=== PATIENT | female | born 1945 | race Caucasian/White ===

== ENCOUNTER → 2018-02-22 15:08 | Outpatient (CLI) | payer MEDICARE, MEDICAID, SELFPAY ==
--- NOTE | 2018-02-22 15:12 | DI.RAD.S_ITS ---
PROCEDURE: XR CHEST 2V INDICATIONS: right rib pain, hx pneumonia TECHNIQUE: 2 views of the chest were acquired. COMPARISON: [facility], CT, PE STUDY (CTA CHEST), 08/25/2017, 15:12. [facility], CR, CHEST 2 VIEW, 08/25/2017, 6:06. [facility], CR, CHEST 2 VIEW, 03/30/2017, 8:39. [facility], CR, CHEST 2 VIEW, 02/21/2017, 13:58. FINDINGS: Surgical changes and devices: None. Lungs and pleura: No pleural effusions or pneumothorax. Lungs are abnormal with what appears to be prominent pulmonary hyperexpansion likely reflecting underlying chronic smoking history and COPD. There is an area of spiculated increased radiodensity that appears slightly greater in radiodensity than on the comparison film from 08/25/17. This raises concern for whether underlying malignancy is developing in that area of what appeared to be prior scarring. Mediastinum: Mediastinal contours are normal. Heart size is normal. Bones and chest wall: No suspicious bony abnormalities. Soft tissues appear unremarkable. IMPRESSION: Possible malignant appearing change at the right upper lobe laterally where an area of relatively subtle lung parenchymal scarring has increased in radiodensity. It is possible that this simply represents development of pneumonia in an area of prior scarring but malignancy as the dominant concerning given pulmonary hyperexpansion and apparent COPD. Followup CT scanning through the area likely is warranted at this time however sequential followup by 2 view chest plain films may be appropriate if signs and symptoms of mild underlying pneumonia are present. Dictated by: Mathew Sykes M.D. on 02/22/2018 at 15:56 Approved by: Mathew Sykes M.D. on 02/22/2018 at 15:59
== END ==
PROVIDERS: PCP Internal Medicine
DX: R07.81 Pleurodynia (principal); R91.8 Other nonspecific abnormal finding of lung field; J44.9 Chronic obstructive pulmonary disease, unspecified
CPT/HCPCS: 71046

== ENCOUNTER → 2018-03-13 12:28 | Outpatient (CLI) | payer MEDICARE, MEDICAID, SELFPAY ==
--- NOTE | 2018-03-13 | DI.CT.S_ITS ---
PROCEDURE: CT CHEST WO CON INDICATIONS: SOLITARY PULMONARY NODULE TECHNIQUE: Noncontrast 2.0-2.5 mm thick sections acquired from the pulmonary apices to the posterior costophrenic angles. 7 mm thick coronal and sagittal MIP reformats were then acquired. A low radiation dose technique was utilized. COMPARISON: [facility], CT, PE STUDY (CTA CHEST), 04/02/2015, 13:52. [facility], CR, XR CHEST 2V, 02/22/2018, 14:54. [facility], CT, PE STUDY (CTA CHEST), 08/25/2017, 15:12. FINDINGS: Image quality: Diagnostic, given the low radiation dose technique. Lungs and pleura: Diffuse centrilobular emphysema. There is increased density and poorly defined consolidation involving the previous right upper lobe opacities on image 39 series 5 since 08/25/17. However overall this is decreased in signal were noted prior CT from 04/02/15. This may correspond to the radiographic appearance. There is also poorly defined 4 mm nodular appearance involving the right upper lobe on image 26 series 5 which appears grossly unchanged. Bibasilar scarring/atelectasis. Mediastinum: Heart size is normal. No pericardial effusion. No mediastinal adenopathy by size criteria. Thoracic aorta and central pulmonary arteries are normal in size. Esophagus is normal in caliber. No hiatal hernia. s Bones and chest wall: No suspicious bony lesions. No vertebral body compression fractures. No axillary or supraclavicular adenopathy by size criteria. Thyroid gland negative. Bilateral posterior diaphragmatic fat-containing hernias, as before Abdomen: Visualized upper abdomen solid organs and bowel loops appear normal in the absence of contrast. IMPRESSION: Increasing density and consolidation of right upper lobe curvilinear and ill-defined opacities. Of note, this is within an area of previous presumed inflammatory change seen on a more distant remote prior CT however the interval increase since the most recent study (08/25/17) raises the possibility of early malignant process/neoplasm (versus recurrence inflammatory change) therefore recommend continued followup with a noncontrast chest CT in 3 months. Additional ill-defined 4 mm nodular focus in the right upper lobe is grossly unchanged. Fleischner Society criteria for SOLID lung nodule followup. Nodule size (mm)Low-risk patientHigh-risk patient<6 (single or multiple)No routine followup.Optional CT at 12 months. 6-8 (single or multiple)CT at 6-12 months, then optional CT at 18-24 mo.CT at 6-12 months, then CT at 18-24 months. >8 (single)CT at 3 months, PET-CT, or biopsy. Same as for low-risk pts. >8 (multiple)CT at 3-6 months, then optional CT at 18-24 mo.CT at 3-6 months, then CT at 18-24 months. Fleischner Society criteria for SUB-SOLID lung nodule followup. Solitary pure ground-glass nodules<6 mm (ground glass or part solid)No followup needed. 6 mm or larger (ground glass)CT at 6-12 months to confirm persistence, then CT every 2 years until 5 years.6 mm or larger (part solid)CT at 3-6 months to confirm persistence, then annual CT until 5 years if unchanged and solid component remains <6 mm. Multiple sub-solid nodules<6 mmCT at 3-6 months, then CT consider at 2 & 4 years for high risk patients. [address] at 3-6 months. Subsequent management based on most suspicious lesions. Recommendations do not apply to lung cancer screening, patients with immunosuppression, or patients with known primary cancer. Dictated by: Srikanth Siddiqui M.D. on 03/13/2018 at 13:21 Approved by: Srikanth Siddiqui M.D. on 03/13/2018 at 13:35
== END ==
PROVIDERS: PCP Internal Medicine; Visit Provider Internal Medicine
DX: R91.1 Solitary pulmonary nodule (principal)
CPT/HCPCS: 71250

== ENCOUNTER → 2018-08-10 09:36 | Outpatient (CLI) | payer MEDICARE, MEDICAID, SELFPAY ==
[2018-08-10 10:41] LABS: Hematocrit 36.8 % (36-46); Hemoglobin 12.7 g/dL (12.0-16.0); Mean Corpuscular HGB Conc 34.5 % (30-36); Mean Corpuscular Hemoglobin 30.4 PG (26-34); Mean Corpuscular Volume 88.1 fL (80-100); Platelet Count 171 X10^3/uL (150-400); Red Blood Cell Count 4.18 X10^6/uL (4.0-5.2); Red Cell Distribution Width 13.5 % (11.6-14.8); White Blood Cell Count 6.9 X10^3/uL (4.5-11.0)
[2018-08-10 10:53] LABS: Hemoglobin A1C% w Est Avg Glu 5.2 % (4.0-6.0)
[2018-08-10 11:26] LABS: Vitamin D 25 Hydroxy (D3) 30.9 ng/mL (30.0-100.0)
[2018-08-10 12:51] LABS: Blood Urea Nitrogen 14 mg/dL (7-17); Calcium 8.5 mg/dL (8.4-10.2); Carbon Dioxide 26 mmol/L (22-32); Chloride 100 mmol/L (98-107); Cholesterol 195 mg/dL (140-199); Estimated Glomerular Filt Rate > 60.0 mL/min (>60); Glucose 86 mg/dL (80-110); HDL Cholesterol 54 mg/dL (40-60); HEMOLYSIS < 15 (0-50); LDL Cholesterol Calculated 124 mg/dL (<100); Potassium 3.8 mmol/L (3.4-5.1); Sodium 138 mmol/L (137-145); Triglycerides 85 mg/dL (35-150)
== END ==
PROVIDERS: PCP Student in an Organized Health Care Education/Training Program; Visit Provider Student in an Organized Health Care Education/Training Program
DX: J44.9 Chronic obstructive pulmonary disease, unspecified (principal); M81.0 Age-related osteoporosis without current pathological fracture; E66.3 Overweight; Z13.220 Encounter for screening for lipoid disorders
CPT/HCPCS: 36415; 80048; 80061; 82306; 83036; 85027

== ENCOUNTER → 2018-08-14 13:47 | Outpatient (CLI) | payer MEDICARE, MEDICAID, SELFPAY ==
--- NOTE | 2018-08-14 13:58 | DI.CT.S_ITS ---
PROCEDURE: CT CHEST WO CON INDICATIONS: Pulmonary nodule TECHNIQUE: Noncontrast 2.0-2.5 mm thick sections acquired from the pulmonary apices to the posterior costophrenic angles. 7 mm thick coronal and sagittal MIP reformats were then acquired. A low radiation dose technique was utilized. COMPARISON: [facility], CT, CT CHEST WO CON, 03/13/2018, 12:37. FINDINGS: Image quality: Diagnostic, given the low radiation dose technique. Lungs and pleura: There is bibasilar scarring/atelectasis. No acute consolidation. 3-4 mm pulmonary nodule seen in the posterior right upper lobe, which may be new since prior study. Previously seen ill-defined curvilinear and presumed inflammatory opacities have resolved since prior study. There is residual scarlike opacity. Small posterior fat containing diaphragmatic hernia is Mediastinum: Heart size is normal. No pericardial effusion. No mediastinal adenopathy by size criteria. Thoracic aorta and central pulmonary arteries are normal in size. Esophagus is normal in caliber. No hiatal hernia. Bones and chest wall: No suspicious bony lesions. No vertebral body compression fractures. No axillary or supraclavicular adenopathy by size criteria. Thyroid gland unremarkable. Abdomen: Visualized upper abdomen solid organs and bowel loops appear normal in the absence of contrast. IMPRESSION: Improved appearance of inflammatory curvilinear densities seen in the right upper lobe however a 3-4 mm posterior right upper lobe nodule is indeterminate and new since prior study. Recommend followup noncontrast chest CT in one year. Fleischner Society criteria for SOLID lung nodule followup. Nodule size (mm)Low-risk patientHigh-risk patient<6 (single or multiple)No routine followup.Optional CT at 12 months. 6-8 (single or multiple)CT at 6-12 months, then optional CT at 18-24 mo.CT at 6-12 months, then CT at 18-24 months. >8 (single)CT at 3 months, PET-CT, or biopsy. Same as for low-risk pts. >8 (multiple)CT at 3-6 months, then optional CT at 18-24 mo.CT at 3-6 months, then CT at 18-24 months. Fleischner Society criteria for SUB-SOLID lung nodule followup. Solitary pure ground-glass nodules<6 mm (ground glass or part solid)No followup needed. 6 mm or larger (ground glass)CT at 6-12 months to confirm persistence, then CT every 2 years until 5 years.6 mm or larger (part solid)CT at 3-6 months to confirm persistence, then annual CT until 5 years if unchanged and solid component remains <6 mm. Multiple sub-solid nodules<6 mmCT at 3-6 months, then CT consider at 2 & 4 years for high risk patients. [address] at 3-6 months. Subsequent management based on most suspicious lesions. Recommendations do not apply to lung cancer screening, patients with immunosuppression, or patients with known primary cancer. Dictated by: Srikanth Siddiqui M.D. on 08/14/2018 at 16:08 Approved by: Srikanth Siddiqui M.D. on 08/14/2018 at 16:13
== END ==
PROVIDERS: Family Provider Internal Medicine Pulmonary Disease; PCP Student in an Organized Health Care Education/Training Program; Visit Provider Student in an Organized Health Care Education/Training Program
DX: R91.1 Solitary pulmonary nodule (principal)
CPT/HCPCS: 71250

== ENCOUNTER → 2018-10-16 12:44 | Outpatient (CLI) | payer MEDICARE, MEDICAID, SELFPAY ==
--- NOTE | 2018-10-16 | DI.MG.S_ITS ---
BILATERAL DIGITAL SCREENING MAMMOGRAM 3D/2D WITH CAD: 10/16/2018 CLINICAL: Routine screening. Comparison is made to exams dated: 09/22/2017 mammogram, 09/01/2016 mammogram, and 08/21/2015 mammogram - [facility]. There are scattered fibroglandular elements in both breasts. Current study was also evaluated with a Computer Aided Detection (CAD) system. There are benign calcifications in both breasts. There is a mole marker on the left breast. No significant masses, calcifications, or other findings are seen in either breast. There has been no significant interval change. IMPRESSION: There is no mammographic evidence of malignancy. A 1 year screening mammogram is recommended. This exam was interpreted at Station ID: [id number]. NOTE: For mammograms, a report in lay terms will be sent to the patient. Approximately 15% of breast malignancies will not be visualized mammographically. In the management of a palpable breast mass, a negative mammogram must not discourage biopsy of a clinically suspicious lesion. Electronically Signed By: Onofre forbes/samy:10/16/2018 16:43:00 letter sent: Normal Exam ACR BI-RADS Category 2: Benign Finding(s) 3342F
== END ==
PROVIDERS: Family Provider Internal Medicine Pulmonary Disease; PCP Student in an Organized Health Care Education/Training Program; Visit Provider Student in an Organized Health Care Education/Training Program
DX: Z12.31 Encounter for screening mammogram for malignant neoplasm of breast (principal)
CPT/HCPCS: 77063; 77067

== ENCOUNTER 2019-01-05 15:19 | Emergency (ER) | payer MEDICARE, MEDICAID, SELFPAY ==
[2019-01-05 15:21] VITALS: BP 103/63; PULSE 94; RESP 21; TEMP 36.8; O2SAT 105; BMI 28.3
--- NOTE | 2019-01-05 15:43 | DI.RAD.S_ITS ---
PROCEDURE: XR CHEST 2V INDICATIONS: cough, fever, rib pain TECHNIQUE: 2 views of the chest were acquired. COMPARISON: [facility], CR, CHEST 2 VIEW, 04/02/2015, 11:01. [facility], CR, CHEST 2 VIEW, 08/25/2017, 6:06. [facility], CT, PE STUDY (CTA CHEST), 08/25/2017, 15:12. [facility], CT, CT CHEST WO CON, 03/13/2018, 12:37. [facility], CT, CT CHEST WO CON, 08/14/2018, 14:58. [facility], CR, XR CHEST 2V, 02/22/2018, 14:54. FINDINGS: Surgical changes and devices: None. Lungs and pleura: No acute consolidation. A small indistinct nodular opacity is redemonstrated in the right upper lung zone, compatible with scarring. There is hyperinflation of the lungs with flattening of the hemidiaphragms compatible with COPD. No pleural effusions or pneumothorax. Mediastinum: Mediastinal contours are unchanged. Heart size is normal. Bones and chest wall: No suspicious bony abnormalities. Soft tissues appear unremarkable. IMPRESSION: 1. Findings compatible with COPD redemonstrated without definite evidence of pneumonia. Dictated by: Andre Ortiz M.D. on 01/05/2019 at 15:58 Approved by: Andre Ortiz M.D. on 01/05/2019 at 16:00
[2019-01-05 16:01] LABS: Influenza A and B by PCR Rapid Negative (Negative)
--- NOTE | 2019-01-05 17:05 | ED_ITS ---
HPI - URI/Sore Throat General Chief Complaint: Upper Respiratory Symptoms Stated Complaint: CHEST PAIN COUGH FEVER Time Seen by Provider: 01/05/19 17:05 Source: patient Limitations: no limitations History of Present Illness HPI Narrative: This is a 73-year-old female who comes to the emergency department with complaint of fevers intermittently. Patient has had some cough pain with cough. Patient states she has had some mild symptoms on and off since August. In the last week she has been concerned because there has been a lot of residence where she live who have had influenza and other respiratory illnesses. Patient has known COPD, she is on Xopenex as well as Advair for a steroid inhaler. She states that she has had temperatures up to 100.3 F, she has had cough that is intermittently dry and then productive with small amounts of phlegm. Patient states that they have been discolored. She has had pain when she coughs. She has felt a little bit more short of breath she has not had any vomiting but had some nausea. No diarrhea. She had some mild constipation which has resolved. No urinary symptoms. No swelling in her lower extremities. patient does see a report clerk. Related Data Home Medications Medication Instructions Recorded Confirmed [VITAMIN K2] 100 mg PO QDAY #0 08/25/17 12/22/18 levalbuterol tartrate [Xopenex HFA] 2 puff INH Q4HP PRN #0 08/25/17 12/22/18 umeclidinium [Incruse Ellipta] 62.5 mcg IH QDAY #0 08/25/17 12/22/18 Collagen 6,600 mg PO .QDAY 08/08/18 12/22/18 Vitamin D 2,000 units PO .QDAY 08/08/18 12/22/18 vitamin c 1,000 mg PO .QDAY 08/08/18 12/22/18 levalbuterol 0.31 mg/3 mL solution INHALATION PRN ml 12/22/18 12/22/18 for nebulization azithromycin 250 mg PO DAILY 01/05/19 01/05/19 umeclidinium [Incruse Ellipta] 1 puff INHALATION DAILY 01/05/19 01/05/19 Previous Rx's Medication Instructions Recorded levothyroxine 75 mcg tablet 75 mcg PO DAILY #90 tab 01/31/19 biotin 10 mg tablet 10 mg PO DAILY #90 tab 11/10/18 fluticasone 500 mcg-salmeterol 50 1 inhalation INHALATION BID #60 01/04/19 mcg/dose blistr powdr for each inhalation amoxicillin-pot clavulanate 1 tab PO BID #14 tab 01/05/19 [Augmentin] Allergies Allergy/AdvReac Type Severity Reaction Status Date / Time brompheniramine Allergy Mild Verified 12/22/18 11:32 [From [facility] Cold-Cough (PE)] ciprofloxacin [From CIPRO] Allergy Mild UNKNOWN Verified 12/22/18 11:32 REACTION. clindamycin [CLINDAMYCIN] Allergy Mild Verified 12/22/18 11:32 codeine Allergy Mild Verified 12/22/18 11:32 dextromethorphan Allergy Mild Verified 12/22/18 11:32 [facility] meloxicam [MELOXICAM] Allergy Mild Verified 12/22/18 11:32 phenylephrine Allergy Mild Verified 12/22/18 11:32 [facility] pseudoephedrine Allergy Mild Verified 12/22/18 11:32 erythromycin base Allergy Unknown Verified 12/22/18 11:32 [ERYTHROMYCIN BASE] LEVOQUIN Allergy Mild ACHILLES Uncoded 12/22/18 11:32 TENDON antihistamines Allergy Unknown PLEASE Uncoded 12/22/18 11:32 CLARIFY WHICH MED robatussin AdvReac Intermediate Severe Uncoded 12/22/18 11:32 confusion MUSCLE RELAXANTS AdvReac Unknown ALL MUSCLE Uncoded 12/22/18 11:32 RELAXERS CAUSE PROJECTILE VOMITING Review of Systems Review of Systems ROS Unobtainable: All systems reviewed & are unremarkable except as noted in HPI and below Constitutional Denies body ache(s), Denies chills, Reports fever(s), Reports headache(s) (Resolved), Denies lethargy, Denies night sweats and Denies weakness ENT Ears, Nose, Mouth, and Throat: Reports headache(s) (Resolved) and Denies nasal congestion Cardiovascular Denies chest pain, Denies diaphoresis, Denies syncope, Denies irregular heart rhythm, Denies leg edema, Denies lightheadedness, Denies radiating jaw, neck or arm pain, Denies palpitations, Reports dyspnea and Denies orthopnea Respiratory Reports chest congestion, Reports cough, Denies hemoptysis, Denies excessive phlegm production, Reports pain with cough, Reports dyspnea, Denies stridor and Reports wheezing Gastrointestinal Gastrointestinal: Denies abdominal pain, Denies change in bowel habits, Denies diarrhea, Denies nausea and Denies vomiting Genitourinary Denies hematuria, Denies dysuria, Denies flank pain and Denies urinary urgency Musculoskeletal Denies back pain Neurologic Denies syncope, Reports headache(s) (Resolved) and Denies weakness Endocrine Denies palpitations Allergic/Immunologic Reports wheezing [facility] Medical History Asthma (Chronic) COPD (chronic obstructive pulmonary disease) (Chronic) Hypothyroidism (Chronic) Cellulitis of right arm (Resolved 12/28/15) Pneumonia (Resolved) Surgical History History of section (Resolved ~1964) History of section (Resolved ~1974) History of tonsillectomy (Resolved) Family History (Updated 08/08/18 @ 09:12 by Roxanna Montemayor) Father Cancer Alzheimer's disease Mother Cancer History of cholecystectomy Cervical cancer BCC (basal cell carcinoma of skin) Rupture of gallbladder Sister Diabetes mellitus Son No problems noted. Daughter No problems noted. Brother Alcoholism Sister Diabetes mellitus Diverticulitis Social History Smoking Status: Former smoker Family History Father Cancer Alzheimer's disease Mother Cancer History of cholecystectomy Cervical cancer BCC (basal cell carcinoma of skin) Rupture of gallbladder Sister Diabetes mellitus Son No problems noted. Daughter No problems noted. Brother Alcoholism Sister Diabetes mellitus Diverticulitis Social History Smoking Status: Former smoker Exam Narrative Exam Narrative: GEN: well nourished, well appearing female, alert and oriented x 3, patient appears to be in mild distress. HEENT: Atraumatic, pupils are equal round reactive to light, extraocular movements are intact, nares are clear, throat is clear without any exudates, erythema, tonsillar enlargement or uvular deviation HEART: Regular rate and rhythm without murmur, clicks, rubs. pulses equal in upper extremities and lower extremities bilaterally. no edema bilateral lower extremities LUNGS:Lungs clear to auscultation, no wheezes, rales, crackles, chest moves symmetrically, no tachypnea or accessory muscle use. ABD:bowel sounds normal, soft, non-tender, no guarding, rebound, rigidity, no masses noted, no hepatosplenomegaly :No CVA tenderness MSCL: Non-tender, no muscle atrophy, muscles strength 5/5 upper and lower extremities, full range of motion, normal gait NEURO:CN 2-12 intact, sensation normal Initial Vital Signs Initial Vital Signs: Vital Signs Temperature 98.3 F 01/05/19 15:21 Pulse Rate 94 H 01/05/19 15:21 Respiratory Rate 21 01/05/19 15:21 Blood Pressure 103/63 01/05/19 15:21 Pulse Oximetry 105 H 01/05/19 15:21 Course Orders Ordered: ED Orders 01/05/19 15:25 FLU A and B [Influenza A and B by PCR Rapid] Stat 01/05/19 15:43 XR chest 2V Stat Discontinued Medications Amoxicillin/Clavulanate Potassium (Augmentin 875-125 Mg) 1 tab PO NOW ONE Stop: 01/05/19 17:53 Last Admin: 01/05/19 18:18 Dose: 1 tab Vital Signs - 8 hr 01/05/19 15:21 01/05/19 18:23 Temperature 98.3 F 98.6 F Pulse Rate 94 H 87 Respiratory Rate 21 20 Blood Pressure 103/63 Blood Pressure [Left Arm] 109/58 L Pulse Oximetry 105 H 92 MDM - URI/Sore Throat Lab Data Attestation: I reviewed the patient's lab results. Lab Results 01/05/19 Range/Units 15:25 Influenza A & B (PCR) Negative (Negative) Imaging Data Chest x-ray: Radiologist's impression: [address] [address] XRay Report Signed Patient: Naye Mason [facility]#: [id number] : 5Acct:[id number] Age/Sex: 73 / FDate of Service: 01/05/19 Loc: ED Accession Number: [id number] Procedure: XR chest 2V Ordering Provider: Nohelia Randall D.O. PROCEDURE: XR CHEST 2V INDICATIONS: cough, fever, rib pain TECHNIQUE: 2 views of the chest were acquired. COMPARISON: [facility], CR, CHEST 2 VIEW, 04/02/2015, 11:01. [facility], CR, CHEST 2 VIEW, 08/25/2017, 6:06. [facility], CT, PE STUDY (CTA CHEST), 08/25/2017, 15:12. [facility], CT, CT CHEST WO CON, 03/13/2018, 12:37. [facility], CT, CT CHEST WO CON, 08/14/2018, 14:58. [facility], CR, XR CHEST 2V, 02/22/2018, 14:54. FINDINGS: Surgical changes and devices: None. Lungs and pleura: No acute consolidation. A small indistinct nodular opacity is redemonstrated in the right upper lung zone, compatible with scarring. There is hyperinflation of the lungs with flattening of the hemidiaphragms compatible with COPD. No pleural effusions or pneumothorax. Mediastinum: Mediastinal contours are unchanged. Heart size is normal. Bones and chest wall: No suspicious bony abnormalities. Soft tissues appear unremarkable. IMPRESSION: 1. Findings compatible with COPD redemonstrated without definite evidence of pneumonia. Dictated by: Andre Ortiz M.D. on 01/05/2019 at 15:58 Approved by: Andre Ortiz M.D. on 01/05/2019 at 16:00 MDM Narrative Medical decision making narrative: I discussed with patient I suspect she may be having a flare of her COPD. She has had some low-grade fevers. She was influenza negative. She has not had a lot of upper respiratory symptoms that would likely be caused by typical virus. Discussed with patient we will plan to do a course of antibiotics, we did discuss doing steroids she is on a inhaled steroid currently. She would prefer to start 1st round of antibiotics if this is helpful and if not then to add steroids. We discussed for her to return this weekend if she is worsening. Otherwise follow up with her primary care or report clerk. Discharge Plan Departure Patient Disposition: Home Clinical Impression: Acute exacerbation of chronic obstructive pulmonary disease (COPD) Discharge Date/Time: 01/05/19 18:29 Interventions: ED Discharge Assessment Last Done: 01/05/19 18:29 Instructions: DI for Chronic Obstructive Pulmonary Disease Activity Restrictions/Additional Instructions: Follow up with primary care or your report clerk this week. Call for an appointment. Continue home medications as prescribed. Take antibiotics as prescribed. Your prescription was sent to [facility] pharmacy. Return to ER for persistent fevers greater than 100.4F, worsening shortness of breath, new weakness, chest pain or pressure, persistent vomiting, no abdominal pain, black or bloody stools, swelling in your lower extremities or other new or concerning symptoms. Prescriptions: New amoxicillin-pot clavulanate [Augmentin] 875-125 mg tablet 1 tab PO BID Qty: 14 RF: 0 No Action vitamin c 1,000 mg PO .QDAY RF: 0 Vitamin D 2,000 units PO .QDAY RF: 0 Collagen 6,600 mg PO .QDAY RF: 0 levalbuterol HCl [Xopenex] 0.31 mg/3 mL solution for nebulization INHALATION PRNRF: 0 [VITAMIN K2] 100 mg PO QDAY Qty: 0 RF: 0 umeclidinium [Incruse Ellipta] 62.5 MCG blister with device 62.5 mcg IH QDAY Qty: 0 RF: 0 levalbuterol tartrate [Xopenex HFA] 45 MCG/INH HFA aerosol inhaler 2 puff INH Q4HP PRNQty: 0 RF: 0 levothyroxine 75 mcg tablet 75 mcg PO DAILY Qty: 90 RF: 1 biotin 10 mg tablet 10 mg PO DAILY Qty: 90 RF: 0 fluticasone propion-salmeterol [Advair Diskus] 500-50 mcg/dose blister with device 1 inhalation INHALATION BID Qty: 60 RF: 5 azithromycin 250 mg tablet 250 mg PO DAILY RF: 0 Incruse Ellipta 62.5 mcg/actuation blister with device 1 puff Inhalation DAILY RF: 0 Referrals: Kailash Velez MD [Primary Care Provider] -
[2019-01-05] MEDS: AMOXICILLIN/CLAV 875/125 MG 1 TAB PO (18:18)
[2019-01-05 18:23] VITALS: BP 109/58; PULSE 87; RESP 20; TEMP 37; O2SAT 92
== END 2019-01-05 18:29 | disposition home or self-care (01) ==
PROVIDERS: Emergency Provider Emergency Medicine; Family Provider Internal Medicine Pulmonary Disease; PCP Student in an Organized Health Care Education/Training Program
DX: J44.1 Chronic obstructive pulmonary disease with (acute) exacerbation (principal); R50.9 Fever, unspecified
CPT/HCPCS: 71046; 87400; 99282; 99283

== ENCOUNTER → 2019-08-23 12:36 | Outpatient (CLI) | payer MEDICARE, MEDICAID, SELFPAY ==
--- NOTE | 2019-08-23 13:01 | DI.CT.S_ITS ---
PROCEDURE: CT CHEST WO CON INDICATIONS: solitary pulmonary nodule, and shortness of breath on excertion TECHNIQUE: Noncontrast 2.0-2.5 mm thick sections acquired from the pulmonary apices to the posterior costophrenic angles. 7 mm thick axial MIP and 5 mm coronal and sagittal reformats were then acquired. A low radiation dose technique was utilized. COMPARISON: [facility], CT, PE STUDY (CTA CHEST), 08/25/2017, 15:12. [facility], CT, CT CHEST WO CON, 03/13/2018, 12:37. [facility], CT, CT CHEST WO CON, 08/14/2018, 14:58. [facility], CR, XR CHEST 2V, 01/05/2019, 15:54. FINDINGS: Image quality: Diagnostic, given the low radiation dose technique. Lungs and pleura: There is a 2 mm nodule in the left upper lobe anterior medially (series 3 image 86), which has decreased in size (previously 4 mm on 08/14/2018). There are several static densities in the right upper lobe and right lower lobe. A couple of stellate densities in the anterior right upper lobe (series 3 image 36) are new, measuring 0.4 x 1.0 cm and and 0.4 x 0.5 cm. A surgical stellate density on the same slice was present but slightly more prominent. These are most likely parenchymal scars. There is moderate centrilobular emphysema. Bilateral subpleural scars and atelectasis in lower lobes. No pleural effusion or pneumothorax. Mediastinum: Heart size is normal. No pericardial effusion. No mediastinal adenopathy by size criteria. Thoracic aorta and central pulmonary arteries are normal in size. Esophagus is normal in caliber. No hiatal hernia. Bones and chest wall: No suspicious bony lesions. No vertebral body compression fractures. No axillary or supraclavicular adenopathy by size criteria. Thyroid gland is new. Abdomen: Visualized upper abdomen solid organs and bowel loops appear normal in the absence of contrast. IMPRESSION: 1. The previously seen 4 mm nodule in the right upper lobe has decreased in size, now measuring 2 mm, consistent with a benign nodule. 2. Multiple static densities in right lung, most likely parenchymal scars. A couple of such densities in the right upper lobe are new. Fleischner Society criteria for SOLID lung nodule followup. Nodule size (mm)Low-risk patientHigh-risk patient<6 (single or multiple)No routine followup.Optional CT at 12 months. 6-8 (single or multiple)CT at 6-12 months, then optional CT at 18-24 mo.CT at 6-12 months, then CT at 18-24 months. >8 (single)CT at 3 months, PET-CT, or biopsy. Same as for low-risk pts. >8 (multiple)CT at 3-6 months, then optional CT at 18-24 mo.CT at 3-6 months, then CT at 18-24 months. Fleischner Society criteria for SUB-SOLID lung nodule followup. Solitary pure ground-glass nodules<6 mm (ground glass or part solid)No followup needed. 6 mm or larger (ground glass)CT at 6-12 months to confirm persistence, then CT every 2 years until 5 years.6 mm or larger (part solid)CT at 3-6 months to confirm persistence, then annual CT until 5 years if unchanged and solid component remains <6 mm. Multiple sub-solid nodules<6 mmCT at 3-6 months, then CT consider at 2 & 4 years for high risk patients. [address] at 3-6 months. Subsequent management based on most suspicious lesions. Recommendations do not apply to lung cancer screening, patients with immunosuppression, or patients with known primary cancer. Dictated by: Kings Jamil M.D. on 08/23/2019 at 15:41 Approved by: Kings Jamil M.D. on 08/23/2019 at 15:55
== END ==
PROVIDERS: Family Provider Internal Medicine Pulmonary Disease; PCP Student in an Organized Health Care Education/Training Program; Visit Provider Student in an Organized Health Care Education/Training Program
DX: R91.1 Solitary pulmonary nodule (principal); R06.02 Shortness of breath; J43.2 Centrilobular emphysema
CPT/HCPCS: 71250

== ENCOUNTER → 2019-10-31 08:38 | Outpatient (CLI) | payer MEDICARE, MEDICAID, SELFPAY ==
--- NOTE | 2019-10-31 | DI.MG.S_ITS ---
BILATERAL DIGITAL SCREENING MAMMOGRAM 3D/2D WITH CAD: 10/31/2019 CLINICAL: Routine screening. Comparison is made to exams dated: 10/16/2018 mammogram, 09/22/2017 mammogram, and 09/01/2016 mammogram - [facility]. There are scattered fibroglandular elements in both breasts. Current study was also evaluated with a Computer Aided Detection (CAD) system. There are benign calcifications in both breasts. There is a mole marker on the left breast. No significant masses, calcifications, or other findings are seen in either breast. There has been no significant interval change. IMPRESSION: There is no mammographic evidence of malignancy. A 1 year screening mammogram is recommended. This exam was interpreted at Station ID: [id number]. NOTE: For mammograms, a report in lay terms will be sent to the patient. Approximately 15% of breast malignancies will not be visualized mammographically. In the management of a palpable breast mass, a negative mammogram must not discourage biopsy of a clinically suspicious lesion. Electronically Signed By: Patricia seymour/samy:10/31/2019 09:44:43 letter sent: Normal Exam ACR BI-RADS Category 2: Benign Finding(s) 3342F
== END ==
PROVIDERS: Family Provider Internal Medicine Pulmonary Disease; PCP Student in an Organized Health Care Education/Training Program; Visit Provider Student in an Organized Health Care Education/Training Program
DX: Z12.31 Encounter for screening mammogram for malignant neoplasm of breast (principal); M81.0 Age-related osteoporosis without current pathological fracture; Z78.0 Asymptomatic menopausal state; E07.9 Disorder of thyroid, unspecified; Z91.89 Other specified personal risk factors, not elsewhere classified; Z87.891 Personal history of nicotine dependence
CPT/HCPCS: 77063; 77067; 77080

== ENCOUNTER → 2020-12-01 09:30 | Outpatient (CLI) | payer MEDICARE, MEDICAID, SELFPAY ==
--- NOTE | 2020-12-01 | DI.MG.S_ITS ---
BILATERAL DIGITAL SCREENING MAMMOGRAM 3D/2D WITH CAD: 12/01/2020 CLINICAL: Routine screening. Comparison is made to exams dated: 10/31/2019 mammogram, 10/16/2018 mammogram, and 09/22/2017 mammogram - [facility]. There are scattered fibroglandular elements in both breasts. Current study was also evaluated with a Computer Aided Detection (CAD) system. There are benign calcifications in both breasts. There is a mole marker on the left breast. No significant masses, calcifications, or other findings are seen in either breast. There has been no significant interval change. IMPRESSION: BENIGN There is no mammographic evidence of malignancy. A 1 year screening mammogram is recommended. This exam was interpreted at Station ID: [id number]. NOTE: For mammograms, a report in lay terms will be sent to the patient. Approximately 15% of breast malignancies will not be visualized mammographically. In the management of a palpable breast mass, a negative mammogram must not discourage biopsy of a clinically suspicious lesion. Electronically Signed By: Anmol Mcgregor M.D., jr/samy:12/01/2020 10:26:42 letter sent: Normal Exam ACR BI-RADS Category 2: Benign Finding(s) 3342F
== END ==
PROVIDERS: Family Provider Internal Medicine Pulmonary Disease; PCP Student in an Organized Health Care Education/Training Program; Referring Provider Student in an Organized Health Care Education/Training Program; Visit Provider Student in an Organized Health Care Education/Training Program
DX: Z12.31 Encounter for screening mammogram for malignant neoplasm of breast (principal); M81.0 Age-related osteoporosis without current pathological fracture; Z78.0 Asymptomatic menopausal state; E07.9 Disorder of thyroid, unspecified; Z87.891 Personal history of nicotine dependence
CPT/HCPCS: 77063; 77067; 77080

== ENCOUNTER → 2021-01-09 09:43 | Outpatient (CLI) | payer MEDICARE, MEDICAID, SELFPAY ==
[2021-01-09 10:06] LABS: Hematocrit 36.7 % (36-46); Hemoglobin 12.5 g/dL (12.0-16.0); Mean Corpuscular Hemoglobin 30.3 PG (26-34); Mean Corpuscular Volume 89.2 fL (80-100); Platelet Count 194 X10^3/uL (150-400); Red Blood Cell Count 4.11 X10^6/uL (4.0-5.2); White Blood Cell Count 6.2 X10^3/uL (4.5-11.0)
[2021-01-09 10:23] LABS: HEMOLYSIS < 15 (0-50)
[2021-01-09 10:35] LABS: BUN Creatinine Ratio 22.2 (6-22); Blood Urea Nitrogen 12 mg/dL (7-17); Calcium 8.7 mg/dL (8.4-10.2); Carbon Dioxide 28 mmol/L (22-32); Chloride 101 mmol/L (98-107); Estimated Glomerular Filt Rate > 60.0 mL/min (>60); Glucose 95 mg/dL (80-110); Sodium 135 mmol/L (137-145)
[2021-01-09 11:02] LABS: TSH w/ Reflex to FT4 3.37 uIU/mL (0.47-4.68)
[2021-01-09 12:40] LABS: Vitamin B12 553 pg/mL (239-931)
[2021-01-13 13:00] LABS: Fecal Immunochemical Test Negative (Negative)
== END ==
PROVIDERS: Family Provider Internal Medicine Pulmonary Disease; PCP Student in an Organized Health Care Education/Training Program; Referring Provider Student in an Organized Health Care Education/Training Program; Visit Provider Student in an Organized Health Care Education/Training Program
DX: E03.9 Hypothyroidism, unspecified (principal); R53.83 Other fatigue; Z12.11 Encounter for screening for malignant neoplasm of colon
CPT/HCPCS: 36415; 80048; 82274; 82607; 84443; 85027

== ENCOUNTER → 2021-02-19 09:12 | Outpatient (CLI) | payer MEDICARE, MEDICAID, SELFPAY ==
[2021-02-19 09:45] LABS: COVID19 -Nasal RAPID Negative (Negative)
== END ==
PROVIDERS: Family Provider Internal Medicine Pulmonary Disease; PCP Student in an Organized Health Care Education/Training Program; Referring Provider Internal Medicine; Visit Provider Internal Medicine
DX: Z23 Encounter for immunization (principal)
CPT/HCPCS: 87635; C9803

== ENCOUNTER → 2021-02-20 12:23 | Outpatient (CLI) | payer MEDICARE, MEDICAID, SELFPAY ==
--- NOTE | 2021-02-25 08:46 | PM.PFT.1 ---
Pulmonary Function Test Referral & Results Date Patient Seen: 02/20/21 Requesting provider: Kailash Velez Results: The spirometry demonstrates an FVC of 2.19 L which is 82% of predicted. The FEV1 was measured at 1.04 L which is 52% of predicted. The FEV1/FVC ratio was 48 which is 63% of predicted. No bronchodilator was administered Lung volumes show an SVC of 2.17 L which is 82% of predicted. The diffusing capacity was measured at 9.41 which is 41% go to end of sentence my no hemoglobin of predicted. The maximum voluntary ventilation was reduced Interpretation: This study demonstrates moderate obstructive lung disease based on reduction FEV1 and FEV1/FVC ratio There may be mild restrictive lung disease based on minimal reduction in lung volumes as above There is also a quite notable reduction in diffusing capacity suggesting significant disease at the capillary alveolar level Clinical correlation suggested
== END ==
PROVIDERS: Family Provider Internal Medicine Pulmonary Disease; PCP Student in an Organized Health Care Education/Training Program; Referring Provider Student in an Organized Health Care Education/Training Program; Visit Provider Student in an Organized Health Care Education/Training Program
DX: J44.9 Chronic obstructive pulmonary disease, unspecified (principal)
CPT/HCPCS: 94010; 94726; 94729

== ENCOUNTER → 2021-07-15 10:56 | Outpatient (CLI) | payer MEDICARE, MEDICAID, SELFPAY ==
[2021-07-15 13:33] LABS: COVID19 -Nasal RAPID Negative (Negative)
== END ==
PROVIDERS: Family Provider Internal Medicine Pulmonary Disease; PCP Student in an Organized Health Care Education/Training Program; Visit Provider Nurse Practitioner Family
DX: Z20.822 Contact with and (suspected) exposure to COVID-19 (principal); R50.9 Fever, unspecified; R51.9 Headache, unspecified; R68.83 Chills (without fever)
CPT/HCPCS: 87635

== ENCOUNTER 2021-07-17 10:21 | Emergency (ER) | payer MEDICARE, MEDICAID, SELFPAY ==
[2021-07-17] VITALS (17 sets, daily range): BP systolic 90–121; BP diastolic 48–62; PULSE 77–105; RESP 16–24; TEMP 36.8; O2SAT 91–95; BMI 27.4
--- NOTE | 2021-07-17 10:40 | DI.RAD.S_ITS ---
PROCEDURE: XR CHEST 1V INDICATIONS: suspected sepsis TECHNIQUE: One view of the chest was acquired. COMPARISON: None. FINDINGS: Surgical changes and devices: None. Lungs and pleura: Moderate right medial basilar airspace opacity. No pleural effusions or pneumothoraces. Mediastinum: Mediastinal contours appear normal. Heart size is normal. Bones and chest wall: No suspicious bony lesions. Overlying soft tissues appear unremarkable. IMPRESSION: Right basilar pneumonia. Continued plain film surveillance is recommended to ensure resolution, and to exclude underlying or central malignancy. Dictated by: Masood Dooley M.D. on 07/17/2021 at 11:06 Approved by: Masood Dooley M.D. on 07/17/2021 at 11:07
[2021-07-17 11:18] LABS: Add Manual Diff / Slide Review NO; Basophils Absolute Auto 0 /uL (0-100); Basophils Percent Auto 0.7 % (0-2); Eosinophils Absolute Auto 100 /uL (0-450); Eosinophils Percent Auto 1.1 % (2-4); Hematocrit 33.2 % (36-46); Hemoglobin 11.3 g/dL (12.0-16.0); Lymphocytes Absolute Auto 900 /uL (1100-4500); Lymphocytes Percent Auto 15.3 % (25-40); Mean Corpuscular HGB Conc 33.9 % (30-36); Mean Corpuscular Hemoglobin 29.7 PG (26-34); Mean Corpuscular Volume 87.6 fL (80-100); Monocytes Absolute Auto 800 /uL (0-900); Monocytes Percent Auto 13.4 % (3-14); Neutrophils Absolute Auto 4200 /uL (1500-7000); Neutrophils Percent Auto 69.5 % (50-75); Platelet Count 190 X10^3/uL (150-400); Red Blood Cell Count 3.79 X10^6/uL (4.0-5.2); Red Cell Distribution Width 13.7 % (11.6-14.8)
[2021-07-17 11:23] LABS: Alanine Aminotransferase 19 IU/L (<35); Albumin Globulin Ratio 1.5 (1.0-2.8); Alkaline Phosphatase 51 U/L (38-126); Aspartate Aminotransferase 23 IU/L (14-36); BUN Creatinine Ratio 37.2 (6-22); Bilirubin Total 0.4 mg/dL (0.2-1.3); Blood Urea Nitrogen 16 mg/dL (7-17); Calcium 8.4 mg/dL (8.4-10.2); Carbon Dioxide 29 mmol/L (22-32); Chloride 97 mmol/L (98-107); Estimated Glomerular Filt Rate > 60.0 mL/min (>60); Globulin 2.6 g/dL (1.7-4.1); Glucose 120 mg/dL (80-110); HEMOLYSIS < 15 (0-50); Lipase 78 U/L (23-300); Potassium 3.8 mmol/L (3.4-5.1); Sodium 130 mmol/L (137-145); Total Protein 6.6 g/dL (6.3-8.2)
[2021-07-17 11:24] LABS: Lactate (Lactic Acid) 1.5 mmol/L (0.7-2.1)
[2021-07-17 11:40] LABS: Procalcitonin 0.06 ng/mL (<0.5)
[2021-07-17] MEDS: SODIUM CHLORIDE 0.9% 1,000 ML 1000 ML IV (11:53)
--- NOTE | 2021-07-17 11:59 | ED_ITS ---
HPI - SOB/Dyspnea General Chief Complaint: Shortness of Breath/Dyspnea Stated Complaint: fever/chills/weakness x6 days Time Seen by Provider: 07/17/21 11:59 Source: patient Mode of arrival: Ambulatory Limitations: no limitations History of Present Illness HPI Narrative: This is a 76-year-old female who comes in with complaint of low- grade fevers at 99 F, chills and feeling generally unwell. She has had a productive cough with clear sputum has been a little bit thicker. She has known COPD and is on Advair, umeclidinium, and fluticasone and azithromycin 250 mg daily. She does albuterol once daily and has not increased her usage. She has had some shortness of breath particularly with exertion and ambulation. She has not had any chest pain or pressure. She does not appreciate any swelling of her extremities. No abdominal, back or flank pain. No nausea or vomiting. She has had some loose stool 1 time today. No black or bloody stools. No other urinary symptoms. Patient does take medication for osteoporosis, hypothyroidism but does not have any known cardiac disease, dyslipidemia, hypertension or prior cardiac stents. She does follow with a hearing screen coordinator. She had COVID testing as an outpatient yesterday. Patient does states she has been on doxycycline in the past and responded well to it. Related Data Home Medications Medication Instructions Recorded Confirmed [VITAMIN K2] 100 mg PO QDAY #0 08/25/17 06/03/21 Collagen 6,600 mg PO .QDAY 08/08/18 06/03/21 Vitamin D 2,000 units PO .QDAY 08/08/18 06/03/21 vitamin c 1,000 mg PO .QDAY 08/08/18 06/03/21 biotin 2,500 mcg capsule 5 mg PO DAILY 05/16/19 06/03/21 Previous Rx's Medication Instructions Recorded oxygen #1 ea 10/19/19 alendronate 70 mg tablet 70 mg PO QWEEK #12 tab 12/15/20 umeclidinium 62.5 mcg/actuation 1 inh INHALATION DAILY #30 each 01/06/21 blister powder for inhalation (Incruse Ellipta) albuterol sulfate 90 mcg/actuation 2 puff INHALATION Q6H PRN #18 gram 04/20/21 aerosol inhaler (Ventolin HFA) levothyroxine 75 mcg tablet 75 mcg PO DAILY #90 tab 05/14/21 albuterol sulfate 2.5 mg INHALATION Q6H #360 ml 06/11/21 fluticasone 500 mcg-salmeterol 50 1 inh INHALATION BID #60 each 07/13/21 mcg/dose blistr powdr for inhalation (Advair Diskus) doxycycline hyclate 100 mg tablet 100 mg PO BID #20 tab 07/17/21 prednisone 10 mg tablets in a dose See Rx Instructions .ROUTE 07/17/21 pack .COMPLEX #15 ea Allergies Allergy/AdvReac Type Severity Reaction Status Date / Time brompheniramine Allergy Mild Verified 07/17/21 10:40 [From Dimetapp DM Cold-Cough (PE)] ciprofloxacin [From CIPRO] Allergy Mild UNKNOWN Verified 07/17/21 10:40 REACTION. clindamycin [CLINDAMYCIN] Allergy Mild Verified 07/17/21 10:40 codeine Allergy Mild Verified 07/17/21 10:40 dextromethorphan Allergy Mild Verified 07/17/21 10:40 [From Dimetapp DM Cold-Cough (PE)] meloxicam [MELOXICAM] Allergy Mild Verified 07/17/21 10:40 phenylephrine Allergy Mild Verified 07/17/21 10:40 [From Dimetapp DM Cold-Cough (PE)] pseudoephedrine Allergy Mild Verified 07/17/21 10:40 erythromycin base Allergy Unknown Verified 07/17/21 10:40 [ERYTHROMYCIN BASE] levofloxacin AdvReac Severe Achilles Verified 07/17/21 12:46 Tendon guaifenesin [From Robitussin] AdvReac Intermediate Confusion Verified 07/17/21 12:46 antihistamines Allergy Unknown PLEASE Uncoded 06/03/21 12:46 CLARIFY WHICH MED MUSCLE RELAXANTS AdvReac Unknown ALL MUSCLE Uncoded 06/03/21 12:46 RELAXERS CAUSE PROJECTILE VOMITING Review of Systems Review of Systems ROS Unobtainable: All systems reviewed & are unremarkable except as noted in HPI and below Patient History Medical History Asthma Cellulitis of right arm (12/28/15) COPD (chronic obstructive pulmonary disease) Hypothyroidism Pneumonia Surgical History History of section (~1965) History of section (~1974) History of tonsillectomy Family History Father Cancer Alzheimer's disease Mother Cancer History of cholecystectomy Cervical cancer BCC (basal cell carcinoma of skin) Rupture of gallbladder Sister Diabetes mellitus Son No problems noted. Daughter No problems noted. Brother Alcoholism Sister Diabetes mellitus Diverticulitis Social History Smoking Status: Former smoker Smoking Status: Former smoker alcohol intake frequency: 0-2 drinks per day Substance Use Type: does not use Exam Narrative Exam Narrative: GENERAL: Alert and oriented x three, female in mild distress. HEENT: Head normocephalic, atraumatic, EOMI, pupils reactive, face symmetric, no nasal congestion, moist mucous membranes NECK: Supple, full range of motion CARDIOVASCULAR: Regular rate and rhythm without murmurs, rubs or gallops. RESPIRATORY: Breath sounds equal bilaterally, no wheezes rales or rhonchi. No tachypnea. No accessory muscle use. ABDOMEN: Soft, nontender. Normoactive bowel sounds all 4 quadrants. No guarding or rebound, rigidity, no mass : No CVA tenderness EXTREMITIES: Normal range of motion, no clubbing or edema. Neurovascularly intact. NEUROLOGICAL: Cranial nerves II through XII grossly intact. Moving all extremities SKIN: Warm, dry, no petechiae, no rashes or lesions. Initial Vital Signs Initial Vital Signs: Vital Signs Temperature 98.3 F 07/17/21 10:30 Pulse Rate 100 H 07/17/21 10:30 Respiratory Rate 24 07/17/21 10:30 Blood Pressure 107/56 L 07/17/21 10:30 Pulse Oximetry 94 07/17/21 10:30 Scores CURB-65 Confusion: No BUN >19mg/dL (>7mmol/L): No Respiratory rate greater or equal to 30: No SBP <90mmHg or DBP less or equal to 60mmHg: No (patient 90 at lowest. Prior visits have had sbp at 100-90's repeatedly.) Age 65 or Older: Yes CURB-65 Total: 1 Score 0-1 Outpatient care, Score 2 Inpt vs. Obs, Score 3 or over Inpt admit with ICU for score of 4-5 Course Orders Ordered: ED Orders 07/17/21 10:40 XR chest 1V Stat RT Consult Eval and Treat Now 07/17/21 11:00 Complete Blood Count AUTO DIFF Stat Comprehensive Metabolic Panel Stat Lactate (Lactic Acid) Stat Lipase Stat Procalcitonin Stat Respiratory Panel (Film Array) Stat 07/17/21 11:16 Blood Culture Stat 07/17/21 12:26 EKG-12 Lead Stat Discontinued Medications Doxycycline Hyclate (Doxycycline Hyclate 100 Mg Tablet) 100 mg PO NOW ONE Stop: 07/17/21 12:37 Last Admin: 07/17/21 13:07 Dose: 100 mg Documented by: JESSICA Sodium Chloride (Normal Saline 0.9%) 1,000 mls @ 1,000 mls/hr IV BOLUS ONE Stop: 07/17/21 11:39 Last Infusion: 07/17/21 13:33 Dose: 0 mls/hr Documented by: Admin: 07/17/21 11:53 Dose: 1,000 mls/hr Documented by: CHITRA Sodium Chloride (Normal Saline 0.9%) 1,000 mls @ 1,000 mls/hr IV BOLUS ONE Stop: 07/17/21 13:32 Last Admin: 07/17/21 13:33 Dose: Not Given Documented by: JESSICA Methylprednisolone (Methylprednisolone 125 Mg/2 Ml Vial) 125 mg IV NOW ONE Stop: 07/17/21 12:38 Last Admin: 07/17/21 13:07 Dose: 125 mg Documented by: JESSICA Vital Signs Vital signs: Vital Signs - 8 hr 07/17/21 11:30 07/17/21 11:31 07/17/21 11:45 Pulse Rate 86 85 84 Respiratory Rate 17 16 18 Blood Pressure 90/48 L Pulse Oximetry 93 92 93 07/17/21 11:56 07/17/21 12:00 07/17/21 12:15 Pulse Rate 81 79 82 Respiratory Rate 18 16 18 Blood Pressure 104/58 L 106/59 L Pulse Oximetry 92 92 94 07/17/21 12:30 07/17/21 12:45 07/17/21 13:00 Pulse Rate 83 82 77 Respiratory Rate 24 16 17 Blood Pressure 116/56 L 116/62 115/59 L Pulse Oximetry 93 95 95 07/17/21 13:15 Pulse Rate 80 Respiratory Rate 19 Blood Pressure 118/60 Pulse Oximetry 95 MDM - SOB/Dyspnea Lab Data Result diagrams: 07/17/21 11:00 07/17/21 11:00 Labs: Lab Results 07/17/21 07/17/21 07/17/21 Range/Units 11:00 11:00 11:00 WBC 6.0 (4.5-11.0) X10^3/uL RBC 3.79 L (4.0-5.2) X10^6/uL Hgb 11.3 L (12.0-16.0) g/dL Hct 33.2 L (36-46) % MCV 87.6 (80-100) fL MCH 29.7 (26-34) PG MCHC 33.9 (30-36) % RDW 13.7 (11.6-14.8) % Plt Count 190 (150-400) X10^3/uL Neut % (Auto) 69.5 (50-75) % Lymph % (Auto) 15.3 L (25-40) % [place] % (Auto) 13.4 (3-14) % Eos % (Auto) 1.1 L (2-4) % Baso % (Auto) 0.7 (0-2) % Neut # (Auto) 4200 (6340-3007) /uL Lymph # (Auto) 900 L (0812-3675) /uL [place] # (Auto) 800 (0-900) /uL Eos # (Auto) 100 (0-450) /uL Baso # (Auto) 0 (0-100) /uL Sodium 130 L (137-145) mmol/L Potassium 3.8 (3.4-5.1) mmol/L Chloride 97 L (98-107) mmol/L Carbon Dioxide 29 (22-32) mmol/L BUN 16 (7-17) mg/dL Creatinine 0.43 L (0.52-1.04) mg/dL Estimated GFR > 60.0 (>60) mL/min BUN/Creatinine Ratio 37.2 H (6-22) Glucose 120 H (80-110) mg/dL Lactate 1.5 (0.7-2.1) mmol/L Calcium 8.4 (8.4-10.2) mg/dL Total Bilirubin 0.4 (0.2-1.3) mg/dL AST 23 (14-36) IU/L ALT 19 (<35) IU/L Alkaline Phosphatase 51 (38-126) U/L Total Protein 6.6 (6.3-8.2) g/dL Albumin 4.0 (3.5-5.0) g/dL Globulin 2.6 (1.7-4.1) g/dL Albumin/Globulin Ratio 1.5 (1.0-2.8) Lipase 78 (23-300) U/L Procalcitonin 0.06 (<0.5) ng/mL Chlamy pneumoniae PCR (Not Detect) Adenovirus (PCR) (Not Detect) B. pertussis DNA (PCR) (Not Detecte) B.parapertussis DNA PCR (Not Detecte) Coronavirus OC43 (PCR) (Not Detect) Coronavirus HKU1 (PCR) (Not Detect) Coronavirus 229E (PCR) (Not Detect) SARS-CoV-2 (PCR) (Not Detecte) Coronavirus NL63 (PCR) (Not Detect) Human Metapneumovir PCR (Not Detect) Influenza Type A (PCR) (Not Detect) Influenza Type B (PCR) (Not Detect) M. pneumoniae (PCR) (Not Detect) Parainfluenza 1 (PCR) (Not Detect) Parainfluenza 2 (PCR) (Not Detect) Parainfluenza 3 (PCR) (Not Detect) Parainfluenza 4 (PCR) (Not Detect) RSV (PCR) (Not Detect) Entero/Rhino (PCR) (Not Detect) 07/17/21 Range/Units 11:00 WBC (4.5-11.0) X10^3/uL RBC (4.0-5.2) X10^6/uL Hgb (12.0-16.0) g/dL Hct (36-46) % MCV (80-100) fL MCH (26-34) PG MCHC (30-36) % RDW (11.6-14.8) % Plt Count (150-400) X10^3/uL Neut % (Auto) (50-75) % Lymph % (Auto) (25-40) % [place] % (Auto) (3-14) % Eos % (Auto) (2-4) % Baso % (Auto) (0-2) % Neut # (Auto) (5669-8326) /uL Lymph # (Auto) (5472-9113) /uL [place] # (Auto) (0-900) /uL Eos # (Auto) (0-450) /uL Baso # (Auto) (0-100) /uL Sodium (137-145) mmol/L Potassium (3.4-5.1) mmol/L Chloride (98-107) mmol/L Carbon Dioxide (22-32) mmol/L BUN (7-17) mg/dL Creatinine (0.52-1.04) mg/dL Estimated GFR (>60) mL/min BUN/Creatinine Ratio (6-22) Glucose (80-110) mg/dL Lactate (0.7-2.1) mmol/L Calcium (8.4-10.2) mg/dL Total Bilirubin (0.2-1.3) mg/dL AST (14-36) IU/L ALT (<35) IU/L Alkaline Phosphatase (38-126) U/L Total Protein (6.3-8.2) g/dL Albumin (3.5-5.0) g/dL Globulin (1.7-4.1) g/dL Albumin/Globulin Ratio (1.0-2.8) Lipase (23-300) U/L Procalcitonin (<0.5) ng/mL Chlamy pneumoniae PCR Not detected (Not Detect) Adenovirus (PCR) Not detected (Not Detect) B. pertussis DNA (PCR) Not detected (Not Detecte) B.parapertussis DNA PCR Not detected (Not Detecte) Coronavirus OC43 (PCR) Not detected (Not Detect) Coronavirus HKU1 (PCR) Not detected (Not Detect) Coronavirus 229E (PCR) Not detected (Not Detect) SARS-CoV-2 (PCR) Not detected (Not Detecte) Coronavirus NL63 (PCR) Not detected (Not Detect) Human Metapneumovir PCR Not detected (Not Detect) Influenza Type A (PCR) Not detected (Not Detect) Influenza Type B (PCR) Not detected (Not Detect) M. pneumoniae (PCR) Not detected (Not Detect) Parainfluenza 1 (PCR) Not detected (Not Detect) Parainfluenza 2 (PCR) Not detected (Not Detect) Parainfluenza 3 (PCR) Not detected (Not Detect) Parainfluenza 4 (PCR) Not detected (Not Detect) RSV (PCR) Not detected (Not Detect) Entero/Rhino (PCR) Not detected (Not Detect) Urine Dip Bedside Urine Glucose Negative Bedside Urine Bilirubin - Negative Bedside Urine Ketone - Negative Urine Specific [place] 1.015 Bedside Urine Occult Blood - Negative Bedside Urine pH 6.0 Bedside Urine Protein - Negative Bedside Urine Urobilinogen - Negative Bedside Urine Nitrite - Negative Bedside Urine Leukocytes - Negative Esterase Imaging Data Chest x-ray: Radiologist's Impression: [address] [id number] XRay Report Signed Patient: Naye Mason MR#: [id number] : 1945 Acct:[id number] Age/Sex: 76 / F Date of Service: 07/17/21 Loc: ED Accession Number: [id number] ?? Procedure: XR chest 1V Ordering Provider: Nohelia Randall D.O. PROCEDURE:? XR CHEST 1V ? INDICATIONS:? suspected sepsis ? TECHNIQUE:? One view of the chest was acquired.? ? COMPARISON:? None. ? FINDINGS:? ? Surgical changes and devices:? None.? ? Lungs and pleura:? Moderate right medial basilar airspace opacity.? No pleural effusions or pneumothoraces. ? Mediastinum:? Mediastinal contours appear normal.? Heart size is normal.? ? Bones and chest wall:? No suspicious bony lesions.? Overlying soft tissues appear unremarkable.? ? IMPRESSION:? Right basilar pneumonia. Continued plain film surveillance is recommended to ensure resolution, and to exclude underlying or central malignancy. ? ? Dictated by: Masood Dooley M.D. on 07/17/2021 at 11:06 ? ? Approved by: Masood Dooley M.D. on 07/17/2021 at 11:07?? ECG Data Attestation: I personally reviewed and interpreted this ECG as follows: Prior ECG tracings: available for review Interpretation: Sinus rhythm with sinus arrhythmia, rate of 77 NV 132 QRS is [address] changes noted. Prior from 04/04/17 appears similar to todays. MDM Narrative Medical decision making narrative: This is a 76-year-old female comes in with complaint of increasing shortness of breath. Chest x-ray shows pneumonia. She is afebrile. She is not tachycardic she has occasional low BP but improved here in the department with some fluid. She does appear to have frequently low blood pressures on many prior visits. She has not been hypoxic. She has known COPD and follows with pulmonology regularly. Patient was started on doxycycline, given a prescription for steroids although she has plans to not start these. She does have albuterol at home but has not felt the need to use it more frequently. Return precautions discussed. Discharge Plan Departure Patient Disposition: Home Clinical Impression: Pneumonia, Hyponatremia Instructions: DI for Pneumonia -- Adult Activity Restrictions/Additional Instructions: Your imaging today does show what appears to be a pneumonia. Please continue home medications as prescribed. Take antibiotics until completed. Prescriptions sent to [facility] in [place]. You may benefit from some steroids. If you prefer you may discuss with your hearing screen coordinator or primary care physician over the phone but included is a prescription for oral steroids that you can fill and start. If you are not feeling particularly wheezy you could wait to start this medication. Please return for worsening fevers, shortness of breath, lightheadedness or p assing out, chest pain, persistent vomiting, dizziness, new swelling in her extremities or other new or concerning symptoms. Prescriptions: New doxycycline hyclate 100 mg tablet 100 mg PO BID Qty: 20 RF: 0 prednisone 10 mg tablets,dose pack See Rx Instructions .ROUTE .COMPLEX Qty: 15 RF: 0 No Action vitamin c 1,000 mg PO .QDAY RF: 0 Vitamin D 2,000 units PO .QDAY RF: 0 Collagen 6,600 mg PO .QDAY RF: 0 [VITAMIN K2] 100 mg PO QDAY Qty: 0 RF: 0 (DME) oxygen Qty: 1 RF: 0 alendronate 70 mg tablet 70 mg PO QWEEK Qty: 12 RF: 3 albuterol sulfate [Ventolin HFA] 90 mcg/actuation HFA aerosol inhaler 2 puff INHALATION Q6H PRN (Reason: shortness of breath or wheezing) Qty: 18 RF: 11 levothyroxine 75 mcg tablet 75 mcg PO DAILY Qty: 90 RF: 1 fluticasone propion-salmeterol [Advair Diskus] 500-50 mcg/dose blister with device 1 inh INHALATION BID Qty: 60 RF: 11 Incruse Ellipta 62.5 mcg/actuation blister with device 1 inh INHALATION DAILY Qty: 30 RF: 11 biotin 2,500 mcg capsule 5 mg PO DAILY RF: 0 albuterol sulfate 2.5 mg /3 mL (0.083 %) solution for nebulization 2.5 mg inhalation Q6H Qty: 360 RF: 11 Referrals: Kailash Velez MD [Primary Care Provider] -
[2021-07-17 12:47] LABS: Adenovirus Not Detected (Not Detect); B. parapertussis Not Detected (Not Detecte); Bordetella pertussis Not Detected (Not Detecte); Chlamydophila pneumoniae Not Detected (Not Detect); Coronavirus 229E Not Detected (Not Detect); Coronavirus HKU1 Not Detected (Not Detect); Coronavirus NL 63 Not Detected (Not Detect); Coronavirus OC43 Not Detected (Not Detect); Human Metapneumovirus Not Detected (Not Detect); Human Rhinovirus/Enterovirus Not Detected (Not Detect); Influenza A Not Detected (Not Detect); Influenza B Not Detected (Not Detect); Mycoplasma pneumoniae Not Detected (Not Detect); Parainfluenza Virus 1 Not Detected (Not Detect); Parainfluenza Virus 2 Not Detected (Not Detect); Parainfluenza Virus 3 Not Detected (Not Detect); Parainfluenza Virus 4 Not Detected (Not Detect); Respiratory Syncytial Virus Not Detected (Not Detect); SARS- CoV-2 Not Detected (Not Detecte)
[2021-07-17] MEDS: methylPREDNISolone 125 MG/2 ML VIAL IV (13:07)
[2021-07-17] MEDS: DOXYCYCLINE HYCLATE 100 MG TABLET PO (13:07)
== END 2021-07-17 13:59 | disposition home or self-care (01) ==
PROVIDERS: Emergency Provider Emergency Medicine; Family Provider Internal Medicine Pulmonary Disease; PCP Student in an Organized Health Care Education/Training Program
DX: J18.9 Pneumonia, unspecified organism (principal); E87.1 Hypo-osmolality and hyponatremia; R06.02 Shortness of breath; R05.9 Cough, unspecified; Z20.822 Contact with and (suspected) exposure to COVID-19
CPT/HCPCS: 36415; 71045; 80053; 81003; 83605; 83690; 84145; 85025; 87040; 87633; 93005; 96361; 96374; 99284; J2930

== ENCOUNTER 2021-07-24 15:07 | Emergency (ER) | payer MEDICARE, MEDICAID, SELFPAY ==
[2021-07-24] VITALS (11 sets, daily range): BP systolic 103–122; BP diastolic 53–58; PULSE 70–82; RESP 17–18; TEMP 36.9; O2SAT 91–98; BMI 27.4
--- NOTE | 2021-07-24 15:26 | DI.RAD.S_ITS ---
PROCEDURE: XR CHEST 2V INDICATIONS: recent pneumonia TECHNIQUE: 2 views of the chest were acquired. COMPARISON: [facility], CR, XR CHEST 1V, 07/17/2021, 10:57. FINDINGS: Surgical changes and devices: None. Lungs and pleura: Pulmonary vascular congestion is seen. Hyperinflation is also noted. Increased reticular lung markings are noted bilaterally. No pleural effusions or pneumothorax. Mediastinum: Mediastinal contours are normal. Heart size is enlarged. Bones and chest wall: No suspicious bony abnormalities. Soft tissues appear unremarkable. IMPRESSION: Mild congestion and suggestion of mild pulmonary edema. No definite focal infiltrate. No pleural effusion or pneumothorax. Dictated by: Valentin Ro M.D. on 07/24/2021 at 15:53 Approved by: Valentin Ro M.D. on 07/24/2021 at 15:54
[2021-07-24 15:48] LABS: Alanine Aminotransferase 18 IU/L (<35); Albumin 3.9 g/dL (3.5-5.0); Albumin Globulin Ratio 1.5 (1.0-2.8); Alkaline Phosphatase 54 U/L (38-126); Aspartate Aminotransferase 23 IU/L (14-36); BUN Creatinine Ratio 29.8 (6-22); Bilirubin Total 0.6 mg/dL (0.2-1.3); Blood Urea Nitrogen 14 mg/dL (7-17); Calcium 8.5 mg/dL (8.4-10.2); Carbon Dioxide 27 mmol/L (22-32); Chloride 96 mmol/L (98-107); Estimated Glomerular Filt Rate > 60.0 mL/min (>60); Globulin 2.6 g/dL (1.7-4.1); Glucose 113 mg/dL (80-110); HEMOLYSIS < 15 (0-50); Potassium 4.2 mmol/L (3.4-5.1); Sodium 129 mmol/L (137-145); Total Protein 6.5 g/dL (6.3-8.2)
[2021-07-24 15:52] LABS: Add Manual Diff / Slide Review NO; Basophils Absolute Auto 0 /uL (0-100); Basophils Percent Auto 0.5 % (0-2); Eosinophils Absolute Auto 200 /uL (0-450); Eosinophils Percent Auto 2.1 % (2-4); Hematocrit 33.8 % (36-46); Hemoglobin 11.4 g/dL (12.0-16.0); Lymphocytes Absolute Auto 1800 /uL (1100-4500); Lymphocytes Percent Auto 21.1 % (25-40); Mean Corpuscular HGB Conc 33.7 % (30-36); Mean Corpuscular Hemoglobin 29.3 PG (26-34); Mean Corpuscular Volume 87.1 fL (80-100); Monocytes Absolute Auto 1100 /uL (0-900); Monocytes Percent Auto 13.4 % (3-14); Neutrophils Absolute Auto 5400 /uL (1500-7000); Neutrophils Percent Auto 62.9 % (50-75); Platelet Count 237 X10^3/uL (150-400); Red Blood Cell Count 3.88 X10^6/uL (4.0-5.2); Red Cell Distribution Width 13.8 % (11.6-14.8); White Blood Cell Count 8.5 X10^3/uL (4.5-11.0)
[2021-07-24 18:31] LABS: Creatine Kinase 52 U/L (30-135)
[2021-07-24 18:44] LABS: NT-proBNP (BNP-Adult 18+) 161 pg/mL (<450); Troponin I < 0.012 ng/mL (0.01-0.034)
--- NOTE | 2021-07-24 19:46 | ED_ITS ---
HPI - URI/Sore Throat General Chief Complaint: Upper Respiratory Symptoms Stated Complaint: worse pneumonia Time Seen by Provider: 07/24/21 18:07 Source: patient Mode of arrival: EMS Limitations: no limitations History of Present Illness HPI Narrative: This is a 76-year-old female who comes to emergency department w ith complaint of fever up to 101 today. Patient states she was seen on the . She had several days of symptoms before then with fevers chills and weakness with some productive cough. She had known COPD on Advair and follows with a boat cleaner. She was on azithromycin 250 mg prophylactically but this was stopped by her boat cleaner she is currently taking doxycycline. States she has been using slightly more O2 during the day she has home O2 but does not typically use it during the daytime. Patient states she has not been rapidly worsening but she is not really improving. She continues to have some shortness of breath with exertion. She denies any chest pain or pressure. She is not having any acute swelling in her extremities. No nausea, no vomiting, no abdominal back or flank pain. No dysuria, urgency or frequency. No diarrhea constipation. Patient has been on doxycycline for oral prednisone. Related Data Home Medications Medication Instructions Recorded Confirmed [VITAMIN K2] 100 mg PO QDAY #0 08/25/17 06/03/21 Collagen 6,600 mg PO .QDAY 08/08/18 06/03/21 Vitamin D 2,000 units PO .QDAY 08/08/18 06/03/21 vitamin c 1,000 mg PO .QDAY 08/08/18 06/03/21 biotin 2,500 mcg capsule 5 mg PO DAILY 05/16/19 06/03/21 Previous Rx's Medication Instructions Recorded oxygen #1 ea 10/19/19 alendronate 70 mg tablet 70 mg PO QWEEK #12 tab 12/15/20 umeclidinium 62.5 mcg/actuation 1 inh INHALATION DAILY #30 each 01/06/21 blister powder for inhalation (Incruse Ellipta) albuterol sulfate 90 mcg/actuation 2 puff INHALATION Q6H PRN #18 gram 04/20/21 aerosol inhaler (Ventolin HFA) levothyroxine 75 mcg tablet 75 mcg PO DAILY #90 tab 05/14/21 albuterol sulfate 2.5 mg INHALATION Q6H #360 ml 06/11/21 fluticasone 500 mcg-salmeterol 50 1 inh INHALATION BID #60 each 07/13/21 mcg/dose blistr powdr for inhalation (Advair Diskus) doxycycline hyclate 100 mg tablet 100 mg PO BID #20 tab 07/17/21 prednisone 10 mg tablets in a dose See Rx Instructions .ROUTE 07/17/21 pack .COMPLEX #15 ea azithromycin 500 mg tablet 500 mg PO DAILY 10 Days #10 tab 07/24/21 Allergies Allergy/AdvReac Type Severity Reaction Status Date / Time brompheniramine Allergy Mild Verified 07/24/21 15:17 [From Dimetapp DM Cold-Cough (PE)] ciprofloxacin [From CIPRO] Allergy Mild UNKNOWN Verified 07/24/21 15:17 REACTION. clindamycin [CLINDAMYCIN] Allergy Mild Verified 07/24/21 15:17 codeine Allergy Mild Verified 07/24/21 15:17 dextromethorphan Allergy Mild Verified 07/24/21 15:17 [From Dimetapp DM Cold-Cough (PE)] meloxicam [MELOXICAM] Allergy Mild Verified 07/24/21 15:17 phenylephrine Allergy Mild Verified 07/24/21 15:17 [From Dimetapp DM Cold-Cough (PE)] pseudoephedrine Allergy Mild Verified 07/24/21 15:17 erythromycin base Allergy Unknown Verified 07/24/21 15:17 [ERYTHROMYCIN BASE] levofloxacin AdvReac Severe Achilles Verified 07/24/21 15:17 Tendon guaifenesin [From Robitussin] AdvReac Intermediate Confusion Verified 07/24/21 15:17 antihistamines Allergy Unknown PLEASE Uncoded 06/03/21 12:46 CLARIFY WHICH MED MUSCLE RELAXANTS AdvReac Unknown ALL MUSCLE Uncoded 06/03/21 12:46 RELAXERS CAUSE PROJECTILE VOMITING Review of Systems Review of Systems ROS Unobtainable: All systems reviewed & are unremarkable except as noted in HPI and below Patient History Medical History Asthma Cellulitis of right arm (12/28/15) COPD (chronic obstructive pulmonary disease) Hypothyroidism Pneumonia Surgical History History of section (~1964) History of section (~1974) History of tonsillectomy Family History Father Cancer Alzheimer's disease Mother Cancer History of cholecystectomy Cervical cancer BCC (basal cell carcinoma of skin) Rupture of gallbladder Sister Diabetes mellitus Son No problems noted. Daughter No problems noted. Brother Alcoholism Sister Diabetes mellitus Diverticulitis Social History Smoking Status: Former smoker Smoking Status: Former smoker alcohol intake frequency: 0-2 drinks per day Substance Use Type: does not use Exam Narrative Exam Narrative: GEN: well nourished, well appearing female, alert and oriented x 3, patient appears to be in mild distress. HEENT: Atraumatic, pupils are equal round reactive to light, extraocular movements are intact, nares are clear. HEART: Regular rate and rhythm without murmur, clicks, rubs. No swelling bilateral lower extremities. LUNGS:Lungs clear to auscultation, no wheezes, rales, crackles, chest moves symmetrically, no tachypnea accessory muscle use. ABD:bowel sounds normal, soft, non-tender, no guarding, rebound, rigidity, no masses noted, no hepatosplenomegaly :No CVA tenderness MSCL: Non-tender, no muscle atrophy, muscles strength 5/5 upper and lower extremities, full range of motion NEURO:CN 2-12 intact, sensation normal Initial Vital Signs Initial Vital Signs: Vital Signs Pulse Rate 76 07/24/21 15:10 Blood Pressure 119/55 L 07/24/21 15:10 Pulse Oximetry 91 07/24/21 15:10 Scores CURB-65 Confusion: No BUN >19mg/dL (>7mmol/L): No Respiratory rate greater or equal to 30: No SBP <90mmHg or DBP less or equal to 60mmHg: No Age 65 or Older: Yes CURB-65 Total: 1 Score 0-1 Outpatient care, Score 2 Inpt vs. Obs, Score 3 or over Inpt admit with ICU for score of 4-5 Course Orders Ordered: ED Orders 07/24/21 15:11 CBC Auto Diff [Complete Blood Count AUTO DIFF] Stat Comprehensive Metabolic Panel Stat NT-proBNP (BNP-Adult 18+) Stat Troponin & CK Cardiac Panel Stat 07/24/21 15:26 XR chest 2V Stat 07/24/21 18:08 EKG-12 Lead Stat 07/24/21 19:55 COVID19 -Nasal swab/Pre-Proc Stat 07/24/21 20:05 Legionella pneumo Antigen Stat Reevaluation(s) Reevaluation #1: This is a 76-year-old female who was seen by myself about a week ago and states her pneumonia is worse. She states she had a temperature in the last day of 101. She has been on oral doxycycline but this was started for possible pneumonia with the setting of COPD. Patient's hyponatremia is still present although mild. Her chest x-ray does not look significantly worse. Her BNP is not elevated she does not appear fluid overloaded. I did order a Legi onella antigen but this is pending. Doxycycline would be an appropriate choice. She was on azithromycin daily we discussed puts happy changing her to this medication. We repeated COVID swab but not a full respiratory panel today as I would likely not change her treatment in any significant way. She has been using oxygen but has oxygen at home, but states she doesn't use it as frequently. She has not had increasing oxygen requirements in the ED. No other clear source of infection on exam. Vital Signs Vital signs: Vital Signs - 8 hr 07/24/21 15:10 07/24/21 15:17 07/24/21 15:30 Temperature 98.5 F Pulse Rate 76 73 70 Respiratory Rate 17 Blood Pressure 119/55 L 119/55 L 108/53 L Pulse Oximetry 91 96 93 07/24/21 15:47 07/24/21 16:00 07/24/21 16:30 Temperature Pulse Rate 72 77 71 Respiratory Rate 18 Blood Pressure 110/56 L 103/57 L 104/57 L Pulse Oximetry 94 91 93 07/24/21 17:00 07/24/21 17:30 07/24/21 18:03 Temperature Pulse Rate 77 82 76 Respiratory Rate 18 18 18 Blood Pressure 111/57 L 113/57 L 121/58 L Pulse Oximetry 95 96 97 07/24/21 18:30 Temperature Pulse Rate 77 Respiratory Rate 18 Blood Pressure 109/55 L Pulse Oximetry 98 MDM - URI/Sore Throat Lab Data Result diagrams: 07/24/21 15:11 07/24/21 15:11 Labs: Lab Results 07/24/21 07/24/21 07/24/21 Range/Units 15:11 15:11 15:11 WBC 8.5 (4.5-11.0) X10^3/uL RBC 3.88 L (4.0-5.2) X10^6/uL Hgb 11.4 L (12.0-16.0) g/dL Hct 33.8 L (36-46) % MCV 87.1 (80-100) fL MCH 29.3 (26-34) PG MCHC 33.7 (30-36) % RDW 13.8 (11.6-14.8) % Plt Count 237 (150-400) X10^3/uL Neut % (Auto) 62.9 (50-75) % Lymph % (Auto) 21.1 L (25-40) % [place] % (Auto) 13.4 (3-14) % Eos % (Auto) 2.1 (2-4) % Baso % (Auto) 0.5 (0-2) % Neut # (Auto) 5400 (0074-1246) /uL Lymph # (Auto) 1800 (6902-2824) /uL [place] # (Auto) 1100 H (0-900) /uL Eos # (Auto) 200 (0-450) /uL Baso # (Auto) 0 (0-100) /uL Sodium 129 L (137-145) mmol/L Potassium 4.2 (3.4-5.1) mmol/L Chloride 96 L (98-107) mmol/L Carbon Dioxide 27 (22-32) mmol/L BUN 14 (7-17) mg/dL Creatinine 0.47 L (0.52-1.04) mg/dL Estimated GFR > 60.0 (>60) mL/min BUN/Creatinine Ratio 29.8 H (6-22) Glucose 113 H (80-110) mg/dL Calcium 8.5 (8.4-10.2) mg/dL Total Bilirubin 0.6 (0.2-1.3) mg/dL AST 23 (14-36) IU/L ALT 18 (<35) IU/L Alkaline Phosphatase 54 (38-126) U/L Total Creatine Kinase 52 (30-135) U/L CK-MB (CK-2) TNP CK-MB (CK-2) Rel Index TNP Troponin I < 0.012 (0.01-0.034) ng/mL NT-Pro-B Natriuret Pep 161 (<450) pg/mL Total Protein 6.5 (6.3-8.2) g/dL Albumin 3.9 (3.5-5.0) g/dL Globulin 2.6 (1.7-4.1) g/dL Albumin/Globulin Ratio 1.5 (1.0-2.8) SARS-CoV-2 (PCR) (Negative) 07/24/21 Range/Units 19:55 WBC (4.5-11.0) X10^3/uL RBC (4.0-5.2) X10^6/uL Hgb (12.0-16.0) g/dL Hct (36-46) % MCV (80-100) fL MCH (26-34) PG MCHC (30-36) % RDW (11.6-14.8) % Plt Count (150-400) X10^3/uL Neut % (Auto) (50-75) % Lymph % (Auto) (25-40) % [place] % (Auto) (3-14) % Eos % (Auto) (2-4) % Baso % (Auto) (0-2) % Neut # (Auto) (6621-5622) /uL Lymph # (Auto) (2649-1786) /uL [place] # (Auto) (0-900) /uL Eos # (Auto) (0-450) /uL Baso # (Auto) (0-100) /uL Sodium (137-145) mmol/L Potassium (3.4-5.1) mmol/L Chloride (98-107) mmol/L Carbon Dioxide (22-32) mmol/L BUN (7-17) mg/dL Creatinine (0.52-1.04) mg/dL Estimated GFR (>60) mL/min BUN/Creatinine Ratio (6-22) Glucose (80-110) mg/dL Calcium (8.4-10.2) mg/dL Total Bilirubin (0.2-1.3) mg/dL AST (14-36) IU/L ALT (<35) IU/L Alkaline Phosphatase (38-126) U/L Total Creatine Kinase (30-135) U/L CK-MB (CK-2) CK-MB (CK-2) Rel Index Troponin I (0.01-0.034) ng/mL NT-Pro-B Natriuret Pep (<450) pg/mL Total Protein (6.3-8.2) g/dL Albumin (3.5-5.0) g/dL Globulin (1.7-4.1) g/dL Albumin/Globulin Ratio (1.0-2.8) SARS-CoV-2 (PCR) Negative (Negative) Urine Dip Bedside Urine Glucose Negative Bedside Urine Bilirubin - Negative Bedside Urine Ketone - Negative Urine Specific [place] 1.010 Bedside Urine Occult Blood - Negative Bedside Urine pH 6.0 Bedside Urine Protein - Negative Bedside Urine Urobilinogen - Negative Bedside Urine Nitrite - Negative Bedside Urine Leukocytes - Negative Esterase Imaging Data Chest x-ray: Radiologist's Impression: Naye Mason??76??F??1945 ? Allergy/Adv: brompheniramine, ciprofloxacin, clindamycin, codeine, dextromethorphan, meloxicam, phenylephrine, pseudoephedrine, erythromycin base, levofloxacin, guaifenesin, [antihistamines], [MUSCLE RELAXANTS] (More??) Close Chest X-Ray (Signed) Valentin Ro - 07/24/21 Chest X-Ray (Signed) Masood Dooley - 07/17/21 DEXA Result 12/01/20 Bone Densitometry 12/01/20 Mammogram Screening (Signed) Anmol Mcgregor - 12/01/20 DEXA Result 10/31/19 Bone Densitometry 10/31/19 Mammogram Screening (Signed) Patricia Garcia - 10/31/[address] (Signed) Camryn Jamil - 08/23/19 Chest X-Ray (Signed) Andre Ortiz - 01/05/19 Mammogram Screening (Signed) Onofre Gambino - 10/16/[address] (Signed) Srikanth Siddiqui - 08/14/[address] (Signed) Srikanth Siddiqui - 03/13/18 Chest X-Ray (Signed) Mathew Sykes - 02/22/18 Radiology - Historical 08/25/17 Radiology - Historical 08/25/17 Radiology - Historical 03/30/17 Radiology - Historical 01/21/17 Launch?[address] [place] [address] XRay Report Signed Patient: Naye Mason MR#: [id number] : 1945 Acct:[id number] Age/Sex: 76 / F Date of Service: 07/24/21 Loc: ED Accession Number: [id number] ?? Procedure: XR chest 2V Ordering Provider: Negra Stack MD PROCEDURE:? XR CHEST 2V ? INDICATIONS:? recent pneumonia ? TECHNIQUE:? 2 views of the chest were acquired.? ? COMPARISON:? Located [facility], CR, XR CHEST 1V, 07/17/2021, 10:57. ? FINDINGS:? ? Surgical changes and devices:? None.? ? Lungs and pleura:? Pulmonary vascular congestion is seen.? Hyperinflation is also noted.? Increased reticular lung markings are noted bilaterally.? No pleural effusions or pneumothorax.? ? Mediastinum:? Mediastinal contours are normal.? Heart size is enlarged.? ? Bones and chest wall:? No suspicious bony abnormalities.? Soft tissues appear unremarkable.? ? IMPRESSION:? Mild congestion and suggestion of mild pulmonary edema.? No definite focal infiltrate.? No pleural effusion or pneumothorax.? ? ? Dictated by: Valentin Ro M.D. on 07/24/2021 at 15:53 ? ? Approved by: Valentin Ro M.D. on 07/24/2021 at 15:54?? Discharge Plan Departure Patient Disposition: Home Clinical Impression: Hyponatremia, Pneumonia Activity Restrictions/Additional Instructions: Your testing today does not show major new changes. We do have an additional test called a Legionella antigen which is pending and takes 2-3 days to result. I would recommend finishing for doxycycline and discussing your care with your boat cleaner. If this is positive you should be contacted and this is typically treated with antibiotics such as azithromycin but at a higher dose than typically take. Prescription sent to [facility]. Please follow-up with your physician this coming week for recheck. Call for an appointment. Please return for new or worsening symptoms, lightheadedness or passing out, chest pain or pressure, persistent vomiting, new swelling in your extremities, black or bloody stools or other new or concerning symptoms. Prescriptions: New azithromycin 500 mg tablet 500 mg PO DAILY 10 Days Qty: 10 RF: 0 No Action vitamin c 1,000 mg PO .QDAY RF: 0 Vitamin D 2,000 units PO .QDAY RF: 0 Collagen 6,600 mg PO .QDAY RF: 0 [VITAMIN K2] 100 mg PO QDAY Qty: 0 RF: 0 (DME) oxygen Qty: 1 RF: 0 alendronate 70 mg tablet 70 mg PO QWEEK Qty: 12 RF: 3 albuterol sulfate [Ventolin HFA] 90 mcg/actuation HFA aerosol inhaler 2 puff INHALATION Q6H PRN (Reason: shortness of breath or wheezing) Qty: 18 RF: 11 levothyroxine 75 mcg tablet 75 mcg PO DAILY Qty: 90 RF: 1 fluticasone propion-salmeterol [Advair Diskus] 500-50 mcg/dose blister with device 1 inh INHALATION BID Qty: 60 RF: 11 Incruse Ellipta 62.5 mcg/actuation blister with device 1 inh INHALATION DAILY Qty: 30 RF: 11 biotin 2,500 mcg capsule 5 mg PO DAILY RF: 0 albuterol sulfate 2.5 mg /3 mL (0.083 %) solution for nebulization 2.5 mg inhalation Q6H Qty: 360 RF: 11 doxycycline hyclate 100 mg tablet 100 mg PO BID Qty: 20 RF: 0 prednisone 10 mg tablets,dose pack See Rx Instructions .ROUTE .COMPLEX Qty: 15 RF: 0 Referrals: Kailash Velez MD [Primary Care Provider] -
[2021-07-24 20:47] LABS: COVID19 -Nasal RAPID Negative (Negative)
== END 2021-07-24 21:31 | disposition home or self-care (01) ==
PROVIDERS: Emergency Medicine; Emergency Provider Emergency Medicine; Family Provider Internal Medicine Pulmonary Disease; PCP Student in an Organized Health Care Education/Training Program
DX: E87.1 Hypo-osmolality and hyponatremia (principal); J18.9 Pneumonia, unspecified organism; Z87.891 Personal history of nicotine dependence; Z20.822 Contact with and (suspected) exposure to COVID-19
CPT/HCPCS: 36415; 71046; 80053; 81003; 82550; 83880; 84484; 85025; 87635; 99285; C9803

== ENCOUNTER → 2021-08-06 11:39 | Outpatient (CLI) | payer MEDICARE, MEDICAID, SELFPAY ==
--- NOTE | 2021-08-06 11:41 | DI.RAD.S_ITS ---
PROCEDURE: XR CHEST 2V INDICATIONS: Pneumonia F/U TECHNIQUE: 2 views of the chest were acquired. COMPARISON: [facility], CR, XR CHEST 1V, 07/17/2021, 10:57. [facility], CT, CT CHEST WO CON, 08/23/2019, 12:53. [facility], CR, XR CHEST 2V, 01/05/2019, 15:54. [facility], CR, XR CHEST 2V, 07/24/2021, 15:26. FINDINGS: Surgical changes and devices: None. Lungs and pleura: Pulmonary vasculature is prominent and there is prominence of the interstitium with basilar predominance. No definitive focal consolidation. No pleural effusion or pneumothorax. Mediastinum: Mediastinal contours are normal. Heart size is generous. Bones and chest wall: No suspicious bony abnormalities. Soft tissues appear unremarkable. IMPRESSION: Findings suggesting mild pulmonary edema which appears similar to prior examination dated 07/24/2021. Dictated by: Anthony SPEARS Interpreted: Valentin Ro MD on 08/06/2021 at 12:22 Transcribed by: MAHAMED on 08/06/2021 at 12:24 Approved by: Valentin Ro M.D. on 08/06/2021 at 15:17
== END ==
PROVIDERS: Family Provider Internal Medicine Pulmonary Disease; PCP Student in an Organized Health Care Education/Training Program; Referring Provider Student in an Organized Health Care Education/Training Program; Visit Provider Student in an Organized Health Care Education/Training Program
DX: J18.9 Pneumonia, unspecified organism (principal)
CPT/HCPCS: 71046

== ENCOUNTER → 2021-12-07 11:19 | Outpatient (CLI) | payer MEDICARE, MEDICAID, SELFPAY ==
--- NOTE | 2021-12-07 | DI.MG.S_ITS ---
BILATERAL DIGITAL SCREENING MAMMOGRAM 3D/2D WITH CAD: 12/07/2021 CLINICAL: Routine screening. Comparison is made to exams dated: 12/01/2020 mammogram, 10/31/2019 mammogram, and 10/16/2018 mammogram - [facility]. There are scattered fibroglandular elements in both breasts. Current study was also evaluated with a Computer Aided Detection (CAD) system. There is a benign focal asymmetry in the right breast. There also are benign calcifications in the left breast. No significant masses, calcifications, or other findings are seen in either breast. There has been no significant interval change. IMPRESSION: BENIGN There is no mammographic evidence of malignancy. A 1 year screening mammogram is recommended. This exam was interpreted at Station ID: [id number]. NOTE: For mammograms, a report in lay terms will be sent to the patient. Approximately 15% of breast malignancies will not be visualized mammographically. In the management of a palpable breast mass, a negative mammogram must not discourage biopsy of a clinically suspicious lesion. Electronically Signed By: Patricia seymour/samy:12/07/2021 12:08:23 copy to: HEIKE EDEN letter sent: Normal Exam ACR BI-RADS Category 2: Benign Finding(s) 3342F
== END ==
PROVIDERS: Family Provider Internal Medicine Pulmonary Disease; PCP Internal Medicine; Referring Provider Student in an Organized Health Care Education/Training Program; Visit Provider Student in an Organized Health Care Education/Training Program
DX: Z12.31 Encounter for screening mammogram for malignant neoplasm of breast (principal)
CPT/HCPCS: 77063; 77067

== ENCOUNTER → 2022-01-04 14:41 | Outpatient (CLI) | payer MEDICARE, MEDICAID, SELFPAY ==
[2022-01-04 15:30] LABS: Add Manual Diff / Slide Review NO; Basophils Absolute Auto 0 /uL (0-100); Basophils Percent Auto 0.5 % (0-2); Eosinophils Absolute Auto 100 /uL (0-450); Hematocrit 37.3 % (36-46); Hemoglobin 12.7 g/dL (12.0-16.0); Lymphocytes Absolute Auto 2400 /uL (1100-4500); Mean Corpuscular Hemoglobin 30.2 PG (26-34); Mean Corpuscular Volume 88.9 fL (80-100); Monocytes Absolute Auto 600 /uL (0-900); Monocytes Percent Auto 9.2 % (3-14); Neutrophils Absolute Auto 3900 /uL (1500-7000); Neutrophils Percent Auto 55.3 % (50-75); Platelet Count 200 X10^3/uL (150-400); Red Blood Cell Count 4.19 X10^6/uL (4.0-5.2); Red Cell Distribution Width 13.8 % (11.6-14.8)
[2022-01-04 15:49] LABS: Alanine Aminotransferase 19 IU/L (<35); Albumin 4.4 g/dL (3.5-5.0); Albumin Globulin Ratio 1.8 (1.0-2.8); Alkaline Phosphatase 36 U/L (38-126); Aspartate Aminotransferase 27 IU/L (14-36); BUN Creatinine Ratio 23.7 (6-22); Bilirubin Total 0.6 mg/dL (0.2-1.3); Blood Urea Nitrogen 14 mg/dL (7-17); Calcium 8.9 mg/dL (8.4-10.2); Carbon Dioxide 31 mmol/L (22-32); Chloride 102 mmol/L (98-107); Cholesterol 231 mg/dL (140-199); Estimated Glomerular Filt Rate > 60.0 mL/min (>60); Globulin 2.5 g/dL (1.7-4.1); Glucose 100 mg/dL (80-110); HDL Cholesterol 58 mg/dL (40-60); HEMOLYSIS < 15 (0-50); LDL Cholesterol Calculated 145 mg/dL (<100); Sodium 136 mmol/L (137-145); Total Protein 6.9 g/dL (6.3-8.2); Triglycerides 138 mg/dL (35-150)
[2022-01-04 16:18] LABS: TSH w/ Reflex to FT4 0.56 uIU/mL (0.47-4.68)
== END ==
PROVIDERS: Family Provider Internal Medicine Pulmonary Disease; PCP Internal Medicine; Referring Provider Internal Medicine; Visit Provider Internal Medicine
DX: E03.9 Hypothyroidism, unspecified (principal); J44.9 Chronic obstructive pulmonary disease, unspecified
CPT/HCPCS: 36415; 80053; 80061; 84443; 85025

== ENCOUNTER → 2022-08-23 09:07 | Outpatient (CLI) | payer MEDICARE, MEDICAID, SELFPAY ==
[2022-08-23 10:21] LABS: Alanine Aminotransferase 23 IU/L (<35); Albumin Globulin Ratio 1.6 (1.0-2.8); Alkaline Phosphatase 43 U/L (38-126); Aspartate Aminotransferase 28 IU/L (14-36); BUN Creatinine Ratio 29.1 (6-22); Bilirubin Total 0.5 mg/dL (0.2-1.3); Blood Urea Nitrogen 16 mg/dL (7-17); Calcium 8.7 mg/dL (8.4-10.2); Carbon Dioxide 30 mmol/L (22-32); Chloride 99 mmol/L (98-107); Cholesterol 146 mg/dL (140-199); Estimated Glomerular Filt Rate > 60 mL/min (>60); Globulin 2.5 g/dL (1.7-4.1); Glucose 85 mg/dL (80-110); HDL Cholesterol 64 mg/dL (40-60); HEMOLYSIS < 15 (0-50); LDL Cholesterol Calculated 69 mg/dL (<100); Potassium 4.3 mmol/L (3.4-5.1); Sodium 135 mmol/L (137-145); Total Protein 6.5 g/dL (6.3-8.2); Triglycerides 67 mg/dL (35-150)
[2022-08-23 10:53] LABS: TSH w/ Reflex to FT4 1.76 uIU/mL (0.47-4.68)
[2022-08-24 19:17] LABS: Fecal Immunochemical Test Negative (Negative)
== END ==
PROVIDERS: Family Provider Internal Medicine Pulmonary Disease; PCP Internal Medicine; Referring Provider Internal Medicine; Visit Provider Internal Medicine
DX: E78.2 Mixed hyperlipidemia (principal); E03.9 Hypothyroidism, unspecified; Z12.11 Encounter for screening for malignant neoplasm of colon
CPT/HCPCS: 36415; 80053; 80061; 82274; 84443

== ENCOUNTER → 2023-01-05 13:40 | Outpatient (CLI) | payer MEDICARE, MEDICAID, SELFPAY ==
--- NOTE | 2023-01-05 | DI.MG.S_ITS ---
BILATERAL DIGITAL SCREENING MAMMOGRAM 3D/2D WITH CAD: 01/05/2023 CLINICAL: Routine screening. Comparison is made to exams dated: 12/07/2021 mammogram, 12/01/2020 mammogram, and 10/31/2019 mammogram - [facility]. There are scattered areas of fibroglandular density in both breasts (category b / 25%-50% glandular tissue). Current study was also evaluated with a Computer Aided Detection (CAD) system. There is a benign focal asymmetry in the right breast. There also are benign calcifications in the left breast. No significant masses, calcifications, or other findings are seen in either breast. There has been no significant interval change. IMPRESSION: BENIGN There is no mammographic evidence of malignancy. A 1 year screening mammogram is recommended. Based on the Tyrer Cuzick model (a risk assessment model) the patient's lifetime risk is 2.3% and her 10 year risk is 0.0%. According to the ACR, ACS, and NCCN guidelines, an annual breast MRI exam along with mammogram is recommended if the patient's lifetime risk is 20% or greater. This exam was interpreted at Station ID: [id number]. NOTE: For mammograms, a report in lay terms will be sent to the patient. Approximately 15% of breast malignancies will not be visualized mammographically. In the management of a palpable breast mass, a negative mammogram must not discourage biopsy of a clinically suspicious lesion. Electronically Signed By: Lei delong/samy:01/05/2023 14:14:19 copy to: HEIKE EDEN letter sent: Normal Exam ACR BI-RADS Category 2: Benign Finding(s) 3342F
== END ==
PROVIDERS: Family Provider Internal Medicine Pulmonary Disease; PCP Internal Medicine; Referring Provider Internal Medicine; Visit Provider Internal Medicine
DX: Z12.31 Encounter for screening mammogram for malignant neoplasm of breast (principal)
CPT/HCPCS: 77063; 77067

== ENCOUNTER → 2023-05-17 11:57 | Outpatient (CLI) | payer MEDICARE, MEDICAID, SELFPAY | PROVIDERS: Family Provider Internal Medicine Pulmonary Disease; PCP Internal Medicine; Referring Provider Internal Medicine; Visit Provider Surgery | DX: S81.802A Unspecified open wound, left lower leg, initial encounter (principal); I73.9 Peripheral vascular disease, unspecified; R60.0 Localized edema; M79.605 Pain in left leg; W01.0XXA Fall on same level from slipping, tripping and stumbling without subsequent striking against object, initial encounter | CPT/HCPCS: 11042; 87070; 87075; 87077; 87186; 87205; 99203; 99214 ==

== ENCOUNTER → 2023-05-17 14:29 | Outpatient (CLI) | payer MEDICARE, MEDICAID, SELFPAY ==
[2023-05-17 15:13] LABS: Add Manual Diff / Slide Review NO; Basophils Absolute Auto 0 /uL (0-100); Basophils Percent Auto 0.4 % (0-2); Eosinophils Absolute Auto 100 /uL (0-450); Eosinophils Percent Auto 1.3 % (2-4); Hematocrit 35.6 % (36-46); Hemoglobin 12.3 g/dL (12.0-16.0); Lymphocytes Absolute Auto 2100 /uL (1100-4500); Lymphocytes Percent Auto 38.3 % (25-40); Mean Corpuscular HGB Conc 34.5 % (30-36); Mean Corpuscular Hemoglobin 30.2 PG (26-34); Mean Corpuscular Volume 87.6 fL (80-100); Monocytes Absolute Auto 500 /uL (0-900); Monocytes Percent Auto 8.5 % (3-14); Neutrophils Absolute Auto 2800 /uL (1500-7000); Neutrophils Percent Auto 51.5 % (50-75); Platelet Count 194 X10^3/uL (150-400); Red Blood Cell Count 4.07 X10^6/uL (4.0-5.2); Red Cell Distribution Width 13.4 % (11.6-14.8); White Blood Cell Count 5.4 X10^3/uL (4.5-11.0)
[2023-05-17 16:06] LABS: Alanine Aminotransferase 21 IU/L (<35); Albumin 4.2 g/dL (3.5-5.0); Albumin Globulin Ratio 1.5 (1.0-2.8); Alkaline Phosphatase 55 U/L (38-126); Aspartate Aminotransferase 27 IU/L (14-36); Bilirubin Total 0.5 mg/dL (0.2-1.3); Blood Urea Nitrogen 13 mg/dL (7-17); Calcium 8.4 mg/dL (8.4-10.2); Carbon Dioxide 28 mmol/L (22-32); Chloride 100 mmol/L (98-107); Estimated Glomerular Filt Rate > 60 mL/min (>60); Globulin 2.8 g/dL (1.7-4.1); Glucose 116 mg/dL (80-110); HEMOLYSIS < 15 (0-50); Potassium 3.9 mmol/L (3.4-5.1); Sodium 136 mmol/L (137-145)
== END ==
PROVIDERS: Family Provider Internal Medicine Pulmonary Disease; PCP Internal Medicine; Referring Provider Surgery; Visit Provider Surgery
DX: L08.9 Local infection of the skin and subcutaneous tissue, unspecified (principal); L97.929 Non-pressure chronic ulcer of unspecified part of left lower leg with unspecified severity
CPT/HCPCS: 36415; 80053; 85025

== ENCOUNTER → 2023-05-24 11:44 | Outpatient (CLI) | payer MEDICARE, MEDICAID, SELFPAY ==
--- NOTE | 2023-05-24 11:45 | DI.US.S_ITS ---
PROCEDURE: US ARTERIAL DUPLEX LE LT INDICATIONS: ULCER OF LEFT LOWER EXTREMITY TECHNIQUE: Color and pulse Doppler interrogation was performed of the left lower extremity arterial system, with image documentation. COMPARISON: None. FINDINGS: Common femoral artery: 190.4 cm/sec, with triphasic flow. Deep femoral artery: 80.8 cm/sec, with triphasic flow. Proximal superficial femoral artery: 134 cm/sec, with triphasic flow. Mid superficial femoral artery: 129.7 cm/sec, with triphasic flow. Distal superficial femoral artery: 96 cm/sec, with triphasic flow. Popliteal artery: 69 cm/sec, with triphasic flow. Posterior tibial artery: 104 cm/sec, with biphasic flow. Anterior tibial artery/dorsalis pedis: 113 cm/sec, with biphasic flow. Bowser-scale imaging description: Widely patent vessels IMPRESSION: Unremarkable left lower extremity duplex arterial ultrasound. Dictated by: Luciano Trejo M.D. on 05/24/2023 at 15:48 Approved by: Luciano Trejo M.D. on 05/24/2023 at 15:53
== END ==
PROVIDERS: Family Provider Internal Medicine Pulmonary Disease; PCP Internal Medicine; Referring Provider Surgery; Visit Provider Surgery
DX: L08.9 Local infection of the skin and subcutaneous tissue, unspecified (principal); L97.929 Non-pressure chronic ulcer of unspecified part of left lower leg with unspecified severity
CPT/HCPCS: 11042; 11045; 93926

== ENCOUNTER → 2023-05-24 13:31 | Outpatient (CLI) | payer MEDICARE, MEDICAID, SELFPAY | PROVIDERS: Family Provider Internal Medicine Pulmonary Disease; PCP Internal Medicine; Referring Provider Internal Medicine; Visit Provider Surgery | DX: S81.802A Unspecified open wound, left lower leg, initial encounter (principal); L08.9 Local infection of the skin and subcutaneous tissue, unspecified; L97.929 Non-pressure chronic ulcer of unspecified part of left lower leg with unspecified severity | CPT/HCPCS: 11042; 11045; 93926; 99213 ==

== ENCOUNTER → 2023-05-31 14:46 | Outpatient (CLI) | payer MEDICARE, MEDICAID, SELFPAY | PROVIDERS: Family Provider Internal Medicine Pulmonary Disease; PCP Internal Medicine; Referring Provider Internal Medicine; Visit Provider Surgery | DX: S81.802A Unspecified open wound, left lower leg, initial encounter (principal); R60.0 Localized edema; L53.9 Erythematous condition, unspecified | CPT/HCPCS: 11042; 11045 ==

== ENCOUNTER → 2023-06-07 13:54 | Outpatient (CLI) | payer MEDICARE, MEDICAID, SELFPAY | PROVIDERS: Family Provider Internal Medicine Pulmonary Disease; PCP Internal Medicine; Referring Provider Internal Medicine; Visit Provider Surgery | DX: S81.802A Unspecified open wound, left lower leg, initial encounter (principal); I73.9 Peripheral vascular disease, unspecified; R60.0 Localized edema | CPT/HCPCS: 11042 ==

== ENCOUNTER → 2023-06-15 14:12 | Outpatient (CLI) | payer MEDICARE, MEDICAID, SELFPAY ==
--- NOTE | 2023-06-15 | OV.WND_ITS ---
Progress Note Details Patient Name: Naye Mason Patient Number: [id number] Clinician: Jaclyn Beckett RN Patient Date of : 1945 Physician / Lock Installer: Onofre Jolley Patient SUBJECTIVE Chief Complaint This information was obtained from the Patient. Left leg wound. Allergies brompheniramine (Severity: Mild), ciprofloxacin (Severity: Mild), clindamycin (Severity: Mild), codeine (Severity: Mild), dextromethorphan (Severity: Mild), meloxicam (Severity: Mild), phenylephrine (Severity: Mild), pseudoephedrine (Severity: Mild), erythromycin base, levofloxacin (Severity: Severe), rosuvastatin (Severity: Severe), guaifenesin (Severity: Moderate, Reaction: Confusion), antihistamines, muscle relaxants (Reaction: all muscle relaxers cause projectile vomiting) HPI This information was obtained from the Patient. The following HPI elements were documented for the patient's wound: Location: LLE Duration: 05/05/23 Context: trauma Associated Signs and Symptoms: none The patient is a 78 year old female with COPD who returns today for follow up of a traumatic wound on the LLE. The patient fell in injured her left lower extremity on May 05, 2023. The patient is receiving dressing changes with Hydrofera blue, Adaptic, DuoDerm, and Tubigrip. She denies having any fever or chills and no longer has any swelling of the left lower extremity. The patient reports a good appetite and denies any other recent changes in overall health. She does have a past history of cigarette use. ABIs show evidence for PAD on the left. Arterial Doppler was normal. Cultures grew Staphylococcus epidermidis and the patient has completed a week of doxycycline. On exam today the wound measures smaller, some necrotic tissue noted on lateral aspect, no sign of infection. The patient has completed a week of doxycycline. Patient is taking protein supplements. LABS: 05/17/23: WBC 15.4, hemoglobin 12.3, HCT 35.6, electrolytes normal, GFR greater than 60, LFTs normal, cultures grew Staphylococcus epidermidis Family History This information was obtained from the Chart, Patient. Cancer- Mother, Father Diabetes- Sibling Other- Mother, Father, Sibling Social History This information was obtained from the Patient. Naye Mason [id number] 1945 Former smoker: Smoked for 40+ years, Quit 2002 Children: 2 Grown Children Lives in: Home - Alone Retired: [employer] Medical History This information was obtained from the Chart, Patient. Patient has a medical history of: Asthma Chronic Obstructive Pulmonary Disease (COPD) Hypothyroidism Pneumonia Additional Information Does patient have a history of Cancer? Yes? Complete all questions.: No Surgical History This information was obtained from the Chart, Patient. Patient has a surgical history of: history of section- (1964,1974) History of tonsillectomy- Review of Systems (ROS) This information was obtained from the Patient. Complaints and Symptoms Patient com plains of: Cardiovascular (Central): Dyspnea on Exertion Hematologic/Lymphatic: Swelling Prior Wound History: Drainage, Erythema, Pain Respiratory: Shortness of Breath Patient denies com plaints or sy m ptom s related to: Cardiovascular (Central): Chest Pain Constitutional Symptoms (General Health): Chills, Fever, Loss of Appetite, Marked Weight Change Prior Wound History: Bleeding, Malodor Respiratory: Cough OBJECTIVE Vitals Height/Length: 63 in (160.02 cm), Weight: 154.6 lbs (70.27 kgs), BMI: 27.4, Temperature: 98.5 ?F (36.94 ?C), Pulse: 70 bpm, Respiratory Rate: 16 breaths/min, Blood Pressure: 118/58 mmHg, Pulse Oximetry: 94 %. Physical Exam Constitutional: Vital signs reviewed and noted. Well developed, well nourished, and in no acute distress. Alert and oriented x3. Respiratory: Naye Mason [id number] 1945 Even respirations without use of accessory muscles. No intercoastal retractions noted. Even and non labored respiration. Integumentary (Hair, Skin): See wound assessment. Neurological: Sensation: Symmetric function by informal observation. Psychiatric: Orientation to time, place and person: Normal affect with normal thought pattern. Additional Information The patient's potential to heal is: fair. Lower Extremity Assessment Edema Assessment: Left Extremity: Edema is present Compression Device In Use: Yes Device Used Correctly: Yes Device in Use: Tubigrip or Tubifast Calf Measurement 30 cm from heel with left measurement of 36.5 cm Ankle Measurement 10 cm from heel with left measurement of 22.5 cm Foot Measurement 10 cm from great toe with left measurement of 21 cm Right Extremity: Edema is present Compression Device In Use: No Calf Measurement 30 cm from heel with right measurement of 35.5 cm Ankle Measurement 10 cm from heel with right measurement of 22.5 cm Foot Measurement 10 cm from great toe with right measurement of 20 cm Vascular Assessment Left Extremity Pulses: Dorsalis Pedis: Palpable Right Extremity Pulses: Dorsalis Pedis: Palpable Left Extremity Colors, hair growth, and conditions: Extremity Color: Pigmented Hair Growth on Extremity: Yes Temperature of Extremity: Cool Capilary Refill: < 3 seconds Erythema: No Dependent Rubor: No Hyperpigmentation: Yes Lipodermatosclerosis: No Right Extremity Colors, hair growth, and conditions: Extremity Color: Pigmented Hair Growth on Extremity: Yes Temperature of Extremity: Warm Capilary Refill: < 3 seconds Erythema: No Dependent Rubor: No Hyperpigmentation: No Lipodermatosclerosis: No Wound Assessment(s) Wound #1 Left, Lateral, Anterior Leg is a chronic Full Thickness Skin Tear and has received a status of Not Healed. Initial wound encounter measurements are 3.6cm length x 3.5cm width x 0.3 cm depth, with an area of 12.6 sq cm and a volume of 3.78 cubic cm. Necrotic adipose is exposed. No tunneling has been noted. No sinus tract has been noted. No undermining has been noted. There is a Moderate amount of serosanguineous drainage noted which has no odor. The patient reports a wound pain of level 0/10. The wound margin is irregular Wound bed has Yes, bright red, pink, firm, granulation, Yes slough, Yes eschar, No epithelialization. The periwound skin exhibited edema. The periwound skin did not exhibit ecchymosis and erythema. The Naye Mason [id number] 1945 temperature of the periwound skin is WNL. Local Pulse is Palpable. Additional Information Limited to breakdown of skin: No ASSESSMENT Active Problems ICD-10 S81.802A - Unspecified open wound, left lower leg, initial encounter (Encounter Diagnosis) I73.9 - Peripheral vascular disease, unspecified (Encounter Diagnosis) S81.802D - Unspecified open wound, left lower leg, subsequent encounter General Notes Open wound left lower leg measurements improved, some necrotic tissue on lateral aspect The following factors have been identified that may affect wound healing: Devitalized tissue Bioburden PAD Comorbidities Infection Edema Goals: Remove devitalized tissue Remove and prevent biofilm Assess circulation Reduce swelling Wound closure Plan: Debridement, continue dressing changes with Hydrofera blue and DuoDerm, add Promogran, Tubigrip for compression, follow up in 1 week for a recheck. PROCEDURES Wound #1 Wound #1 (Skin Tear) is located on the left, lateral, anterior leg. A skin/subcutaneous tissue level surgical debridement with a total area debrided of 12.6 sq cm. was performed by Onofre Jolley MD. Adipose and subcutaneous were removed along with devitalized tissue: biofilm, exudate, necrotic/eschar and slough. The following instrument(s) were used: curette. Pain control was achieved using EMLA lidocaine/prilocaine 2.5%/2.5%. A time out was conducted prior to the start of the procedure. A minimal amount of bleeding was controlled with pressure. The procedure was tolerated well with a pain level of 0 throughout and a pain level of 0 following the procedure. Post Debridement Measurements: 3.6cm length x 3.5cm width x 0.4cm depth; with an area of 12.6 sq cm and a volume of 5.04 cubic cm. Additional Information Muscle fascia or bone removed and sent to pathology?: No Naye Mason [id number] 1945 PLAN Wound Orders: Wound #1 Left, Lateral, Anterior Leg Anesthetic Topical Xylocaine to wound bed Hygiene May shower with wound protected, using a cast protector or plastic bag and tape Cleanser Cleanse Wound with normal saline Dressings Primary dressing - Promogran collagen moistened with saline until dressing appears transparent against wound bed. Hydrofera blue ready transfer. Cover and secure with - Duoderm. Change Dressing - Once at home. Compression/Edema Control Elevation of leg(s) above the level of the heart when sitting Avoid prolonged standing in one place Knee-high gradient compression stockings Compression Type: - Tubular compression stocking size E. Physician Review: Reviewed and evaluated labs. Discussed the Plan of Care @ bedside with - the patient Reviewed hospital records. I, as the physician, have reviewed the orders scribed by the center RN's and agree. Additional Orders: Dietary Increased protein Supplement with - Protein shakes in between meals. Follow-Up Appointments Return Appointment - One week. Other information: If you develop fever, chills, increased pain, drainage, redness or swelling please call our office. If after hours, respond to the ER. Should you experience any significant changes in your wound(s) or have any questions regarding your home care instructions please contact the wound center @ [phone]. If after hours, contact your primary care physician or go to the hospital emergency room. Scribing Attestation I attest, as the nurse, that I scribed these orders for the physician. Plan of Care: 01. ENSURE/ESTABLISH OPTIMAL BLOOD FLOW : - Complete lower extremity assessment - Perform non-invasive vascular testing (i.e. ARIADNA) and document findings. Consider repeating when wound healing <40% after 30 days of wound care. 02. ASSESS FOR/TREAT INFECTION : - Evaluate for signs and symptoms of infection and document findings. - Obtain culture and sensitivity (CandS) or tissue culture when infection is suspected. (NOTE:) Consider repeating when wound healing <40% after 30 days of wound care. 03. DEBRIDE WEEKLY OR MORE OFTEN PRN : - Evaluate patient in center weekly to assess wound bed and margins for need for debridement. - Debridement by any method to remove devitalized/necrotic tissue to promote healing and prevent further complications. Goal is to stimulate and/or maintain acute phase of wound healing by reducing bacterial burden and devitalized/non-viable tissue. 04. OPTIMIZE GLUCOSE CONTROL and NUTRITION : - Order/review pertinent labs to evaluate renal function, glucose control, and nutritional status. Naye Mason [id number] 1945 - Complete a nutrition risk assessment. 05. OFFLOADING PLAN : - Reviewed, not applicable 06. OPTIMIZE HOST FACTORS: - Assess and review patient history for wound etiology, co-morbid conditions, medication regime, and smoking history. - Assess lifestyle factors such as smoking, alcohol/drug abuse, eating habits/malnutrition and activity level. 07. DRESSING SELECTION : - Evaluate for dressing-related factors, such as availability, wear time, adaptability and use to better optimize wound healing and patient compliance. - Choose topical treatments and/or dressing based on wound type and appearance, periwound skin condition, wound size and depth, anatomic location, volume of exudate, edema in the lower extremities, and risk or presence of infection. 08. ADVANCED MODALITIES : - Set treatment goals according to patient and/or caregiver???s ability/ compliance. - Re-evaluate plan of care if no evidence of healing (40% in 4 weeks). 09. FALL PREVENTION : - Complete fall assessment. - Inform patient and family of risk of falling and discuss prevention strategies. 10. PAIN MANAGEMENT : - Complete pain assessment - Prepare patient to set reasonable expectations prior to procedure. 11. MEASURABLE GOALS for Wound Healing and/or Hyperbaric Oxygen Therapy : - Decrease Inflammation - Decrease Wound Dimensions - Implement protocols to promote healing and impede further injury - Reduce/Removal of Necrotic/Devitalized Tissue - Reduce edema - Improve/promote tissue viability and perfusion 12. DURATION/FREQUENCY of Wound Care Visits : - 1x weekly for 30 days Electronic Signature(s) Signed By: Date: Onofre Jolley MD 06/15/2023 15:39:02 (PT) Entered By: Onofre Jolley MD on 06/15/2023 15:38:39 (PT) Naye Mason [id number] 1945
== END ==
PROVIDERS: Family Provider Internal Medicine Pulmonary Disease; PCP Internal Medicine; Referring Provider Internal Medicine; Visit Provider Surgery
DX: S81.802A Unspecified open wound, left lower leg, initial encounter (principal); I73.9 Peripheral vascular disease, unspecified
CPT/HCPCS: 11042; 99213

== ENCOUNTER → 2023-06-21 15:19 | Outpatient (CLI) | payer MEDICARE, MEDICAID, SELFPAY | PROVIDERS: Family Provider Internal Medicine Pulmonary Disease; PCP Internal Medicine; Referring Provider Internal Medicine; Visit Provider Surgery | DX: S81.802A Unspecified open wound, left lower leg, initial encounter (principal); R60.0 Localized edema | CPT/HCPCS: 11042 ==

== ENCOUNTER → 2023-06-28 14:14 | Outpatient (CLI) | payer MEDICARE, MEDICAID, SELFPAY | PROVIDERS: Family Provider Internal Medicine Pulmonary Disease; PCP Internal Medicine; Referring Provider Internal Medicine; Visit Provider Surgery | DX: I73.9 Peripheral vascular disease, unspecified (principal); S81.802D Unspecified open wound, left lower leg, subsequent encounter | CPT/HCPCS: 11042; 99212 ==

== ENCOUNTER → 2023-07-05 14:07 | Outpatient (CLI) | payer MEDICARE, MEDICAID, SELFPAY | PROVIDERS: Family Provider Internal Medicine Pulmonary Disease; PCP Internal Medicine; Referring Provider Internal Medicine; Visit Provider Surgery | DX: S81.812A Laceration without foreign body, left lower leg, initial encounter (principal); I96 Gangrene, not elsewhere classified; R60.0 Localized edema; I73.9 Peripheral vascular disease, unspecified; J44.9 Chronic obstructive pulmonary disease, unspecified; Z87.891 Personal history of nicotine dependence | CPT/HCPCS: 11042 ==

== ENCOUNTER → 2023-07-12 14:15 | Outpatient (CLI) | payer MEDICARE, MEDICAID, SELFPAY | PROVIDERS: Family Provider Internal Medicine Pulmonary Disease; PCP Internal Medicine; Referring Provider Internal Medicine; Visit Provider Surgery | DX: S81.802A Unspecified open wound, left lower leg, initial encounter (principal) | CPT/HCPCS: 11042; 99213 ==

== ENCOUNTER → 2023-07-20 14:27 | Outpatient (CLI) | payer MEDICARE, MEDICAID, SELFPAY | PROVIDERS: Family Provider Internal Medicine Pulmonary Disease; PCP Internal Medicine; Referring Provider Internal Medicine; Visit Provider Surgery | DX: S81.802A Unspecified open wound, left lower leg, initial encounter (principal); I73.9 Peripheral vascular disease, unspecified | CPT/HCPCS: 99212; 99213 ==

== ENCOUNTER → 2023-07-27 14:15 | Outpatient (CLI) | payer MEDICARE, MEDICAID, SELFPAY | PROVIDERS: Family Provider Internal Medicine Pulmonary Disease; PCP Internal Medicine; Referring Provider Internal Medicine; Visit Provider Surgery | DX: S81.802A Unspecified open wound, left lower leg, initial encounter (principal); R60.0 Localized edema | CPT/HCPCS: 99212; 99213 ==

== ENCOUNTER → 2023-08-03 14:01 | Outpatient (CLI) | payer MEDICARE, MEDICAID, SELFPAY | PROVIDERS: Family Provider Internal Medicine Pulmonary Disease; PCP Internal Medicine; Referring Provider Internal Medicine; Visit Provider Surgery | DX: S81.802D Unspecified open wound, left lower leg, subsequent encounter (principal) | CPT/HCPCS: 99212; 99213 ==

== ENCOUNTER → 2024-01-09 07:36 | Outpatient (CLI) | payer MEDICARE, MEDICAID, SELFPAY ==
--- NOTE | 2024-01-09 07:38 | DI.MG.S_ITS ---
BILATERAL DIGITAL SCREENING MAMMOGRAM 3D/2D WITH CAD: 01/09/2024 CLINICAL: Routine screening. Comparison is made to exams dated: 01/05/2023 mammogram, 12/07/2021 mammogram, and 12/01/2020 mammogram - [facility]. There are scattered areas of fibroglandular density in both breasts (category b / 25%-50% glandular tissue). Current study was also evaluated with a Computer Aided Detection (CAD) system. There is a benign focal asymmetry in the right breast. There also are benign calcifications in both breasts. No significant masses, calcifications, or other findings are seen in either breast. There has been no significant interval change. IMPRESSION: BENIGN There is no mammographic evidence of malignancy. A 1 year screening mammogram is recommended. Based on the Tyrer Cuzick model (a risk assessment model) the patient's lifetime risk is 2.0% and her 10 year risk is 0.0%. According to the ACR, ACS, and NCCN guidelines, an annual breast MRI exam along with mammogram is recommended if the patient's lifetime risk is 20% or greater. This exam was interpreted at Station ID: [id number]. NOTE: For mammograms, a report in lay terms will be sent to the patient. Approximately 15% of breast malignancies will not be visualized mammographically. In the management of a palpable breast mass, a negative mammogram must not discourage biopsy of a clinically suspicious lesion. Electronically Signed By: Fredi damico/samy:01/09/2024 14:24:27 copy to: HEIKE EDEN letter sent: Normal Exam ACR BI-RADS Category 2: Benign Finding(s) [id number]
== END ==
PROVIDERS: Family Provider Internal Medicine Pulmonary Disease; PCP Internal Medicine; Referring Provider Internal Medicine; Visit Provider Internal Medicine
DX: Z12.31 Encounter for screening mammogram for malignant neoplasm of breast (principal); R92.323 Mammographic fibroglandular density, bilateral breasts
CPT/HCPCS: 77063; 77067

== ENCOUNTER → 2024-02-08 12:03 | Outpatient (CLI) | payer MEDICARE, MEDICAID, SELFPAY ==
[2024-02-08 13:16] LABS: Aspartate Aminotransferase 29 IU/L (14-36); Blood Urea Nitrogen 14 mg/dL (7-17); Calcium 8.8 mg/dL (8.4-10.2); Carbon Dioxide 29 mmol/L (22-32); Chloride 102 mmol/L (98-107); Cholesterol 209 mg/dL (140-199); Estimated Glomerular Filt Rate > 60 mL/min (>60); Glucose 117 mg/dL (80-110); HDL Cholesterol 64 mg/dL (40-60); HEMOLYSIS < 15 (0-50); LDL Cholesterol Calculated 121 mg/dL (<100); Potassium 3.9 mmol/L (3.4-5.1); Sodium 134 mmol/L (137-145); Triglycerides 120 mg/dL (35-150)
[2024-02-08 14:03] LABS: TSH w/ Reflex to FT4 1.74 uIU/mL (0.47-4.68)
== END ==
PROVIDERS: Family Provider Internal Medicine Pulmonary Disease; PCP Internal Medicine; Referring Provider Internal Medicine; Visit Provider Internal Medicine
DX: E78.2 Mixed hyperlipidemia (principal); E03.9 Hypothyroidism, unspecified
CPT/HCPCS: 36415; 80048; 80061; 84443; 84450

== ENCOUNTER → 2024-12-17 15:07 | Outpatient (CLI) | payer MEDICARE, MEDICAID, SELFPAY ==
[2024-12-17 16:04] LABS: Aspartate Aminotransferase 34 IU/L (14-36); BUN Creatinine Ratio 39.2 (6-22); Blood Urea Nitrogen 20 mg/dL (7-17); Calcium 8.8 mg/dL (8.4-10.2); Carbon Dioxide 28 mmol/L (22-32); Chloride 99 mmol/L (98-107); Cholesterol 197 mg/dL (140-199); Estimated Glomerular Filt Rate > 60 mL/min (>60); Glucose 98 mg/dL (80-110); HDL Cholesterol 103 mg/dL (40-60); HEMOLYSIS < 15 (0-50); LDL Cholesterol Calculated 65 mg/dL (<100); Potassium 4.4 mmol/L (3.4-5.1); Sodium 134 mmol/L (137-145); Triglycerides 145 mg/dL (35-150)
[2024-12-17 16:36] LABS: TSH w/ Reflex to FT4 2.95 uIU/mL (0.47-4.68)
== END ==
PROVIDERS: Family Provider Internal Medicine Pulmonary Disease; PCP Internal Medicine; Referring Provider Internal Medicine; Visit Provider Internal Medicine
DX: E03.9 Hypothyroidism, unspecified (principal); E78.2 Mixed hyperlipidemia
CPT/HCPCS: 80048; 80061; 84443; 84450

== ENCOUNTER → 2025-01-21 09:52 | Outpatient (CLI) | payer MEDICARE, MEDICAID, SELFPAY ==
--- NOTE | 2025-01-21 09:53 | DI.RAD.S_ITS ---
PROCEDURE: XR DEXA AXIAL SKELETON INDICATIONS: osteoporosis COMPARISON: [facility], , XR DEXA AXIAL SKELETON, 12/01/2020, 9:45. [facility], CR, XR DEXA AXIAL SKELETON, 10/31/2019, 9:50. FINDINGS: Lumbar Spine: L1, L2, L4. Bone mineral density 0.772 g/cm2, T score -2.4. Left Femoral Neck: Bone mineral density 0.415 g/cm2, T score -3.9. Left Hip: Bone mineral density 0.543 g/cm2, T score -3.3. Fracture Risk Calculation (when applicable): 10-year fracture risk of a major osteoporotic fracture 47 percent and of a hip fracture 27 percent. (T score greater or equal to -1.0 to: NORMAL) (T score from -1.1 to -2.4: OSTEOPENIA) (T score less than or equal to -2.5: OSTEOPOROSIS) IMPRESSION: Osteoporosis. Follow-up guidelines as follows: Osteoporosis: Consider a repeat DEXA and Vertebral Fracture Assessment (VFA) exam in 2 years or sooner if medically necessary, to reassess this patient's status. Osteopenia: Consider a repeat DEXA in 2-3 years to reassess this patient's status, or if there is a new clinical indication. Normal: Consider a repeat DEXA in 5 years or sooner, or if there is a new clinical indication. All treatment decisions require clinical judgment and consideration of individual patient factors, including patient preferences, comorbidities, previous drug use, risk factors not captured in the FRAX model (e.g., frailty, falls, vitamin D deficiency, increased bone turnover, interval significant decline in bone density ) and possible under- or over-estimation of fracture risk by FRAX. In addition, the NOF Guide recommends that FDA-approved medical therapies be considered in postmenopausal women and men age >= 50 years with a: * Hip or vertebral (clinical or morphometric) fracture * T-score of <=-2.5 at the spine or hip * Ten-year fracture probability by FRAX of >= 3% for hip fracture or >=20% for major osteoporotic fracture. Dictated by: Jamil Lund M.D. on 01/21/2025 at 14:02 Approved by: Jamil Lund M.D. on 01/21/2025 at 14:05
== END ==
PROVIDERS: Family Provider Internal Medicine Pulmonary Disease; PCP Internal Medicine; Referring Provider Internal Medicine; Visit Provider Internal Medicine
DX: M81.0 Age-related osteoporosis without current pathological fracture (principal)
CPT/HCPCS: 77080

== ENCOUNTER → 2025-02-14 11:13 | Outpatient (CLI) | payer MEDICARE, MEDICAID, SELFPAY ==
[2025-02-14 12:40] LABS: Alanine Aminotransferase 37 IU/L (<35); Albumin 4.3 g/dL (3.5-5.0); Albumin Globulin Ratio 2.2 (1.0-2.8); Alkaline Phosphatase 46 U/L (38-126); Aspartate Aminotransferase 41 IU/L (14-36); Blood Urea Nitrogen 16 mg/dL (7-17); Calcium 9.1 mg/dL (8.4-10.2); Carbon Dioxide 26 mmol/L (22-32); Chloride 98 mmol/L (98-107); Estimated Glomerular Filt Rate > 60 mL/min (>60); Glucose 91 mg/dL (70-99); HEMOLYSIS < 15 (0-50); Potassium 4.5 mmol/L (3.4-5.1); Sodium 132 mmol/L (137-145); Total Protein 6.3 g/dL (6.3-8.2)
== END ==
PROVIDERS: Family Provider Internal Medicine Pulmonary Disease; PCP Internal Medicine; Referring Provider Internal Medicine; Visit Provider Internal Medicine
DX: M81.0 Age-related osteoporosis without current pathological fracture (principal)
CPT/HCPCS: 36415; 80053

== ENCOUNTER → 2025-04-08 12:56 | Outpatient (CLI) | payer MEDICARE, MEDICAID, SELFPAY ==
--- NOTE | 2025-04-08 12:57 | DI.MG.S_ITS ---
MM screening mammo BI: 04/08/2025. BI-RADS: 1 CLINICAL: 80-year old female for bilateral screening mammogram. Tyrer-Cuzick lifetime risk of 0.8%. No personal or first-degree family history of breast cancer. PRIOR EXAMS 01/09/2024, 01/05/2023, 12/07/2021, 12/01/2020, 10/31/2019, 10/16/2018, 09/22/2017, 09/01/2016, 08/21/2015. MAMMOGRAPHY TECHNIQUE: 2D and 3D (tomosynthesis) digital mammographic views obtained, with additional images as needed for full coverage. Current study was also evaluated with a Computer Aided Detection (CAD) system. DENSITY B. There are scattered areas of fibroglandular density. MAMMOGRAPHY FINDINGS Bilateral: No suspicious mass, asymmetry, microcalcification, or other abnormality seen. IMPRESSION: * No evidence of malignancy. RECOMMENDATIONS Bilateral * Annual screening mammography. OVERALL ASSESSMENT CATEGORY BI-RADS-1: Negative. The [employer] recommends annual screening mammography beginning at age 40 for women with average risk of breast cancer. ELECTRONICALLY SIGNED: Barry Contreras M.D. on 04/08/2025 at 05:02:48 PM PT Interpreting Station ID: [id number]
== END ==
PROVIDERS: Family Provider Internal Medicine Pulmonary Disease; PCP Internal Medicine; Referring Provider Internal Medicine; Visit Provider Internal Medicine
DX: Z12.31 Encounter for screening mammogram for malignant neoplasm of breast (principal)
CPT/HCPCS: 77063; 77067

== ENCOUNTER 2025-07-18 14:21 | Inpatient (IN) | payer MEDICARE, MEDICAID, SELFPAY ==
[2025-07-18] VITALS (21 sets, daily range): BP systolic 115–142; BP diastolic 54–97; PULSE 70–106; RESP 14–24; TEMP 36.6–36.9; O2SAT 86–97; BMI 23.9
--- NOTE | 2025-07-18 14:42 | DI.RAD.S_ITS ---
PROCEDURE: XR CHEST 1V INDICATIONS: Shortness of breath TECHNIQUE: One view of the chest was acquired. COMPARISON: [facility], CR, XR CHEST 2V, 08/06/2021, 11:41. FINDINGS: Surgical changes and devices: None. Lungs and pleura: Lungs are clear. No pleural effusions or pneumothorax. Mediastinum: Tortuous thoracic aorta. Heart size is enlarged. Bones and chest wall: No suspicious bony lesions. Overlying soft tissues appear unremarkable. IMPRESSION: No acute cardiopulmonary pathology. Dictated by: Valentin Ro M.D. on 07/18/2025 at 15:13 Approved by: Valentin Ro M.D. on 07/18/2025 at 15:14
--- NOTE | 2025-07-18 14:42 | EKG_ITS ---
[facility] [address] [address] Test Date: 2025-07-18 Pat Name: Naye Mason Department: [facility] Room: Gender: Female Rn Patient Services: : 1945 Requested By: Order Number: [id number] Reading MD: Carlos Traylor Measurements Intervals Yulan Rate: 78 P: 62 NJ: 154 QRS: 63 QRSD: 72 T: 67 QT: 376 QTc: 428 Interpretive Statements Normal sinus rhythm Low voltage QRS Electronically Signed On 07-18-2025 17:12:41 PDT by Carlos Traylor
[2025-07-18 15:03] LABS: Add Manual Diff / Slide Review NO; Hematocrit 35.8 % (36-46); Hemoglobin 12.4 g/dL (12.0-16.0); Lymphocytes Absolute Auto 1700 /uL (1100-4500); Mean Corpuscular HGB Conc 34.5 % (30-36); Mean Corpuscular Hemoglobin 28.8 PG (26-34); Mean Corpuscular Volume 83.5 fL (80-100); Platelet Count 200 X10^3/uL (150-400)
[2025-07-18 15:09] LABS: INR 1.0 (0.9-1.3); Prothrombin Time 11.5 SECONDS (9.4-12.5)
[2025-07-18 15:14] LABS: Alanine Aminotransferase 14 IU/L (<35); Albumin 4.5 g/dL (3.5-5.0); Albumin Globulin Ratio 1.6 (1.0-2.8); Alkaline Phosphatase 48 U/L (38-126); Blood Urea Nitrogen 14 mg/dL (7-17); Calcium 9.4 mg/dL (8.4-10.2); Carbon Dioxide 30 mmol/L (22-32); Chloride 98 mmol/L (98-107); Estimated Glomerular Filt Rate > 60 mL/min (>60); Globulin 2.8 g/dL (1.7-4.1); Glucose 111 mg/dL (70-99); HEMOLYSIS < 15 (0-50); Lactate (Lactic Acid) 0.9 mmol/L (0.7-2.1); Potassium 4.3 mmol/L (3.4-5.1); Sodium 136 mmol/L (137-145); Total Protein 7.3 g/dL (6.3-8.2)
[2025-07-18] MEDS: ALBUTEROL/IPRATROPIUM 3 ML AMPUL 9 ML INH (15:26)
[2025-07-18 15:28] LABS: NT-proBNP (BNP-Adult 18+) 115 pg/mL (<450); Troponin I < 0.012 ng/mL (0.01-0.034)
[2025-07-18] MEDS: methylPREDNISolone succ 125 MG/2 ML VIAL IV (16:08)
[2025-07-18] MEDS: ALBUTEROL 2.5 MG/3 ML NEB (ADULT) INH (16:49)
--- NOTE | 2025-07-18 18:07 | ED.SOB ---
HPI - SOB/Dyspnea General Chief Complaint: Shortness of Breath/Dyspnea Stated Complaint: SOB, O2 saturation inconsistent Time Seen by Provider: 07/18/25 15:39 Source: patient Mode of arrival: Ambulatory Limitations: no limitations History of Present Illness HPI Narrative: 80-year-old female with history of COPD, uses oxygen at night, not usually during daytime hours, has home albuterol, 2 weeks duration of increasing shortness of breath, despite use of her breathing treatments, taken earlier today. Has intermittent new cough productive of white-yellow sputum. No bloody sputum. Denies chest pain. Swelling to legs. Denies pain in legs. Related Data Home Medications ?Medication ?Instructions ?Recorded ?Confirmed Collagen 6,600 mg PO .QDAY 08/08/18 07/08/25 ascorbic acid (vitamin C) 1,000 mg 1,000 mg PO DAILY 04/16/22 07/08/25 tablet cholecalciferol (vitamin D3) 50 50 mcg PO DAILY 04/16/22 07/08/25 mcg (2,000 unit) capsule azithromycin 250 mg tablet 250 mg PO DAILY 08/05/22 07/08/25 vitamin k 2 1 cap PO DAILY 08/10/23 07/08/25 levalbuterol HCl 0.63 mg/3 mL 0.63 mg inhalation 3XD PRN dyspnea 02/14/25 07/08/25 solution for nebulization Previous Rx's ?Medication ?Instructions ?Recorded oxygen #1 ea 10/19/19 Disabled Parking Permit #1 ea 03/26/24 levothyroxine 75 mcg tablet 75 mcg PO DAILY #90 tabs 12/24/24 alendronate 70 mg tablet 70 mg PO QWEEK #12 tabs 02/21/25 glycopyrrolate 9 mcg-formoterol 2 puff inhalation BID #10.7 grams 04/17/25 4.8 mcg HFA aerosol inhaler (Bevespi Aerosphere) albuterol sulfate 90 mcg/actuation 2 puff inhalation QID #6.7 grams 07/16/25 aerosol inhaler Allergies Allergy/AdvReac Type Severity Reaction Status Date / Time codeine Allergy Severe Anaphylaxis Verified 07/08/25 11:05 voriconazole Allergy Severe Hives Verified 07/08/25 11:05 brompheniramine (From Allergy Mild Verified 07/08/25 11:05 Dimetapp DM Cold-Cough (PE)) ciprofloxacin (From CIPRO) Allergy Mild UNKNOWN Verified 07/08/25 11:05 REACTION. clindamycin (CLINDAMYCIN) Allergy Mild Verified 07/08/25 11:05 dextromethorphan (From Allergy Mild Verified 07/08/25 11:05 Dimetapp DM Cold-Cough (PE)) meloxicam (MELOXICAM) Allergy Mild Verified 07/08/25 11:05 phenylephrine (From Dimetapp Allergy Mild Verified 07/08/25 11:05 DM Cold-Cough (PE)) pseudoephedrine Allergy Mild Verified 07/08/25 11:05 erythromycin base Allergy Unknown Verified 07/08/25 11:05 (ERYTHROMYCIN BASE) levofloxacin AdvReac Severe Achilles Verified 07/08/25 11:05 Tendon rosuvastatin AdvReac Severe Joint Pain Verified 07/08/25 11:05 fluticasone (From Advair AdvReac Intermediate leg Verified 07/08/25 11:05 Diskus) swelling guaifenesin (From Robitussin) AdvReac Intermediate Confusion Verified 07/08/25 11:05 salmeterol (From Advair AdvReac Intermediate leg Verified 07/08/25 11:05 Diskus) swelling antihistamines Allergy Unknown PLEASE Uncoded 07/08/25 11:05 CLARIFY WHICH MED MUSCLE RELAXANTS AdvReac Unknown ALL MUSCLE Uncoded 07/08/25 11:05 RELAXERS CAUSE PROJECTILE VOMITING Patient History Medical History Asthma Cellulitis of right arm (12/28/15) COPD (chronic obstructive pulmonary disease) Decubitus ulcer of left buttock Hypothyroidism Pneumonia Slow transit constipation Surgical History History of section (~1964) History of section (~1974) History of tonsillectomy Family History Father Cancer Alzheimer's disease Mother Cancer History of cholecystectomy Cervical cancer BCC (basal cell carcinoma of skin) Rupture of gallbladder Sister Diabetes mellitus Son No problems noted. Daughter No problems noted. Brother Alcoholism Sister Diabetes mellitus Diverticulitis Social History details: Single, living alone, two grown children; retired [employer] household members: none Smoking Status: Former smoker Tobacco: How many years used: 40 Smoking Status: Former smoker tobacco type: cigarettes alcohol intake frequency: 0-2 drinks per day Exam Narrative Exam Narrative: GENERAL: Well-developed patient, in mild distress. HEAD: Atraumatic. Normocephalic. EYES: Pupils equal round and reactive. Extraocular motions intact. No scleral icterus. No injection or drainage. ENT: Nose without bleeding, purulent drainage. Throat without erythema, tonsillar hypertrophy or exudate. Airway patent. Nasal cannula in place. NECK: Trachea midline. Non tender CARDIOVASCULAR: Regular rate and rhythm without murmurs, gallops, or rubs. RESPIRATORY: Clear to auscultation. Breath sounds equal bilaterally. No wheezes, rales, or rhonchi. GASTROINTESTINAL: Abdomen soft, non-tender, nondistended. EXTREMITIES: No edema or joint tenderness. BACK: Nontender without deformity or crepitance. No flank tenderness. NEURO: AOx3. Motor functions grossly nonfocal. SKIN: No rash or erythema of visible areas Initial Vital Signs Initial Vital Signs: Vital Signs Temperature 98.4 F 07/18/25 14:28 Pulse Rate 79 07/18/25 14:28 Respiratory Rate 20 07/18/25 14:28 Blood Pressure 124/59 L 07/18/25 14:28 Pulse Oximetry 94 07/18/25 14:28 Oxygen Delivery Method Nasal Cannula 07/18/25 14:28 Oxygen Flow Rate 2 07/18/25 14:28 Course Orders Ordered: Acetaminophen (Acetaminophen 325 Mg Tablet) 650 mg PO Q6H PRN PRN Reason: Fever/Mild Pain (1-3) Albuterol/Ipratropium (Albuterol/Ipratropium 3 Ml Ampul) 3 ml INH [id number] BORA Albuterol/Ipratropium (Albuterol/Ipratropium 3 Ml Ampul) 3 ml INH RTQ4HR PRN PRN Reason: Shortness Of Breath Levothyroxine Sodium (Levothyroxine 75 Mcg Tablet) 75 mcg PO DAILY BORA Methylprednisolone (Methylprednisolone Succ 125 Mg/2 Ml Vial) 60 mg IV Q6H BORA Naloxone HCl (Naloxone 0.4 Mg/Ml Vial) 0.2 mg IV Q2MIN PRN PRN Reason: Opiate Reversal Non-Formulary Medication (Glycopyrrolate-Formoterol [Bevespi Aerosphere]) 2 puff INHALATION BID BORA Ondansetron HCl (Ondansetron 4 Mg/2 Ml Inj) 4 mg IV Q8HR PRN PRN Reason: Nausea And Vomiting Discontinued Medications Albuterol (Albuterol 2.5 Mg/3 Ml Neb (Adult)) 2.5 mg INH NOW ONE Stop: 07/18/25 16:46 Last Admin: 07/18/25 16:49 Dose: 2.5 mg Documented By: RIGO Albuterol/Ipratropium (Albuterol/Ipratropium 3 Ml Ampul) 9 ml INH NOW ONE Stop: 07/18/25 15:24 Last Admin: 07/18/25 15:26 Dose: 9 ml Documented By: LEONA Albuterol/Ipratropium (Albuterol/Ipratropium 3 Ml Ampul) 3 ml INH NOW ONE Stop: 07/18/25 18:16 Last Admin: 07/18/25 18:30 Dose: 3 ml Documented By: RIGO Methylprednisolone (Methylprednisolone Succ 125 Mg/2 Ml Vial) 125 mg IV NOW ONE Stop: 07/18/25 15:40 Last Admin: 07/18/25 16:08 Dose: 125 mg Documented By: ANNABELLA Vital Signs Vital signs: Vital Signs - 8 hr 07/18/25 17:59 07/18/25 18:00 07/18/25 18:00 Pulse Rate 106 H 93 H Respiratory Rate 24 21 Blood Pressure 136/97 H Pulse Oximetry 86 L 86 L Oxygen Delivery Method Room Air Oxygen Flow Rate Fraction of Inspired Oxygen 07/18/25 18:30 07/18/25 18:30 07/18/25 18:30 Pulse Rate 85 91 H Respiratory Rate 24 20 Blood Pressure 122/65 Pulse Oximetry 95 96 Oxygen Delivery Method Nasal Cannula Nasal Cannula Oxygen Flow Rate 2 2 Fraction of Inspired Oxygen 28 07/18/25 19:00 07/18/25 19:00 07/18/25 19:30 Pulse Rate 81 81 Respiratory Rate 16 21 Blood Pressure 123/56 L Pulse Oximetry 90 L 93 Oxygen Delivery Method Nasal Cannula Oxygen Flow Rate 2 Fraction of Inspired Oxygen 07/18/25 19:30 07/18/25 20:00 07/18/25 20:00 Pulse Rate 84 Respiratory Rate 18 Blood Pressure 134/58 L 118/58 L Pulse Oximetry 92 Oxygen Delivery Method Oxygen Flow Rate Fraction of Inspired Oxygen MDM - SOB/Dyspnea Lab Data Attestation: I reviewed the patient's lab results. Lab results narrative: White blood cell count 4500, hemoglobin 12.4, platelets adequate. Glucose 111. Renal function, serum CO2, potassium normal. Sodium 136 slight low. Liver functions normal. Troponin negative/unmeasurable. BNP normal. 07/18/25 14:53 07/18/25 14:53 Labs: Lab Results 07/18/25 Range/Units 14:53 WBC 4.5 (4.5-11.0) X10^3/uL RBC 4.29 (4.0-5.2) X10^6/uL Hgb 12.4 (12.0-16.0) g/dL Hct 35.8 L (36-46) % MCV 83.5 (80-100) fL MCH 28.8 (26-34) PG MCHC 34.5 (30-36) % RDW 14.4 (11.6-14.8) % Plt Count 200 (150-400) X10^3/uL Neut % (Auto) 45.0 L (50-75) % Lymph % (Auto) 36.9 (25-40) % [place] % (Auto) 9.7 (3-14) % Eos % (Auto) 7.4 H (2-4) % Baso % (Auto) 1.0 (0-2) % Neut # (Auto) 2000 (5252-7044) /uL Lymph # (Auto) 1700 (4207-5562) /uL [place] # (Auto) 400 (0-900) /uL Eos # (Auto) 300 (0-450) /uL Baso # (Auto) 0 (0-100) /uL PT 11.5 (9.4-12.5) SECONDS INR 1.0 (0.9-1.3) Sodium 136 L (137-145) mmol/L Potassium 4.3 (3.4-5.1) mmol/L Chloride 98 (98-107) mmol/L Carbon Dioxide 30 (22-32) mmol/L BUN 14 (7-17) mg/dL Creatinine 0.51 L (0.52-1.04) mg/dL Estimated GFR > 60 (>60) mL/min BUN/Creatinine Ratio 27.5 H (6-22) Glucose 111 H (70-99) mg/dL Lactate 0.9 (0.7-2.1) mmol/L Calcium 9.4 (8.4-10.2) mg/dL Total Bilirubin 0.4 (0.2-1.3) mg/dL AST 24 (14-36) IU/L ALT 14 (<35) IU/L Alkaline Phosphatase 48 (38-126) U/L Troponin I < 0.012 (0.01-0.034) ng/mL NT-Pro-B Natriuret Pep 115 (<450) pg/mL Total Protein 7.3 (6.3-8.2) g/dL Albumin 4.5 (3.5-5.0) g/dL Globulin 2.8 (1.7-4.1) g/dL Albumin/Globulin Ratio 1.6 (1.0-2.8) Imaging Data Chest x-ray: Radiologist's Impression: [address] [address] XRay Report Signed Patient: Naye Mason MR#: [id number] : 1945 Acct:[id number] Age/Sex: 80 / F Date of Service: 07/18/25 Loc: ED Accession Number: [id number] Procedure: XR chest 1V Ordering Provider: Shabana Steven D.O. PROCEDURE: XR CHEST 1V INDICATIONS: Shortness of breath TECHNIQUE: One view of the chest was acquired. COMPARISON: [facility], , XR CHEST 2V, 08/06/2021, 11:41. FINDINGS: Surgical changes and devices: None. Lungs and pleura: Lungs are clear. No pleural effusions or pneumothorax. Mediastinum: Tortuous thoracic aorta. Heart size is enlarged. Bones and chest wall: No suspicious bony lesions. Overlying soft tissues appear unremarkable. IMPRESSION: No acute cardiopulmonary pathology. Dictated by: Valentin Ro M.D. on 07/18/2025 at 15:13 Approved by: Valentin Ro M.D. on 07/18/2025 at 15:14 ECG Data Attestation: I personally reviewed and interpreted this ECG as follows: Interpretation: 1447, normal sinus rhythm with rate 78, no obvious ST segment elevation or depression changes. PA 154, QRS 72, QTC 428. MDM Narrative Medical decision making narrative: 80-year-old female with history of COPD, two weeks duration of increasing shortness of breath, cough productive of white-yellow sputum. No fever. Uses home breathing machines albuterol. Uses oxygen only at night, not usually during daytime hours. Denies chest pain. EKG shows normal sinus rhythm, no obvious ischemic changes Chest x-ray no acute changes. See radiology report. Lab data: White blood cell count 4500, hemoglobin 12.4, platelets adequate. Glucose 111. Renal function, serum CO2, potassium normal. Sodium 136 slight low. Liver functions normal. Troponin negative/unmeasurable. BNP normal. Still symptomatic quite short of breath with minimal exertion after IV steroid and serial nebulized bronchodilators, and many hours in the emergency department. Advised admission, patient agreeable. We will contact hospitalist. Case discussed with hospitalist Dr. Nair who accepts patient for admission Critical Care Time Critical Care Time Critical Care Time: Yes Total Critical Care Time: 35 Attestation: The high probability of a clinically significant, sudden or life threatening deterioration of the [cardiopulmonary] system(s) required my full and direct attention, intervention and personal management. The aggregate critical care time was [35] minutes. This time is in addition to time spent performing reported procedures but includes the following: [x] Data Review and interpretation [x] Patient assessment and monitoring of vital signs [x] Documentation [x] Medication orders and management Discharge Plan Departure Patient Disposition: Admitted as Observation Clinical Impression: COPD exacerbation Admit Date/Time: 07/18/25 20:08 Admit Provider: Aftab Nair
[2025-07-18] MEDS: ALBUTEROL/IPRATROPIUM 3 ML AMPUL INH (18:30)
--- NOTE | 2025-07-19 05:11 | PM.HP.1 ---
History of Present Illness History of Present Illness Date Patient Seen: 07/18/25 Time Patient Seen: 23:45 Chief complaint: SOB, O2 saturation inconsistent Narrative: 80-year-old female with past medical history of COPD only on 2 L of oxygen per nasal cannula at night, vitamin D deficiency, osteoporosis and hypothyroidism presents with shortness and wheezing. Per the patient report, over the last few days the patient has increasing shortness of breath and wheezing. Patient does have a mild cough with some white-yellow sputum but denies any recent fever, chills, nausea, vomiting, diarrhea, chest pain or syncope. In the emergency room, the patient remains hemodynamically stable. The patient was still saturating well on room air but had significant respiratory distress and wheezing on exam prior ER physician. Labs were relatively benign without signs of sepsis. Chest x-ray shows no acute finding. Her ER physician request admission due to ongoing shortness of breath despite having IV Solu-Medrol and DuoNebs. [facility] Medical History Asthma Cellulitis of right arm (12/28/15) COPD (chronic obstructive pulmonary disease) Decubitus ulcer of left buttock Hypothyroidism Pneumonia Slow transit constipation Surgical History History of section (~1964) History of section (~1974) History of tonsillectomy Family History Father Cancer Alzheimer's disease Mother Cancer History of cholecystectomy Cervical cancer BCC (basal cell carcinoma of skin) Rupture of gallbladder Sister Diabetes mellitus Son No problems noted. Daughter No problems noted. Brother Alcoholism Sister Diabetes mellitus Diverticulitis Social History details: Single, living alone, two grown children; retired [employer] household members: none Smoking Status: Former smoker Tobacco: How many years used: 40 Meds Home Medications and Allergies Home Medications ?Medication ?Instructions ?Recorded ?Confirmed ?Type Collagen 6,600 mg PO .QDAY 08/08/18 07/19/25 History oxygen #1 ea 10/19/19 07/19/25 Rx ascorbic acid (vitamin C) 1,000 mg 1,000 mg PO DAILY 04/16/22 07/19/25 History tablet cholecalciferol (vitamin D3) 50 50 mcg PO DAILY 04/16/22 07/19/25 History mcg (2,000 unit) capsule azithromycin 250 mg tablet 250 mg PO DAILY 08/05/22 07/19/25 History vitamin k 2 1 cap PO DAILY 08/10/23 07/19/25 History Disabled Parking Permit #1 ea 03/26/24 07/08/25 Rx levothyroxine 75 mcg tablet 75 mcg PO DAILY #90 tabs 12/24/24 07/19/25 Rx levalbuterol HCl 0.63 mg/3 mL 0.63 mg inhalation 3XD PRN dyspnea 02/14/25 07/19/25 History solution for nebulization alendronate 70 mg tablet 70 mg PO QWEEK #12 tabs 02/21/25 07/19/25 Rx glycopyrrolate 9 mcg-formoterol 2 puff inhalation BID #10.7 grams 04/17/25 07/19/25 Rx 4.8 mcg HFA aerosol inhaler (Bevespi Aerosphere) albuterol sulfate 90 mcg/actuation 2 puff inhalation QID #6.7 grams 07/16/25 07/19/25 Rx aerosol inhaler fluticasone 500 mcg-salmeterol 50 1 ea inhalation BID 07/19/25 07/19/25 History mcg/dose blistr powdr for inhalation fluticasone fur. 200 mcg-umeclid 1 ea inhalation DAILY 07/19/25 07/19/25 History 62.5 mcg-vilant 25 mcg inhalat.powder (Trelegy Ellipta) Allergies Allergy/AdvReac Type Severity Reaction Status Date / Time codeine Allergy Severe Anaphylaxis Verified 07/08/25 11:05 voriconazole Allergy Severe Hives Verified 07/08/25 11:05 brompheniramine (From Allergy Mild Verified 07/08/25 11:05 Dimetapp DM Cold-Cough (PE)) ciprofloxacin (From CIPRO) Allergy Mild UNKNOWN Verified 07/08/25 11:05 REACTION. clindamycin (CLINDAMYCIN) Allergy Mild Verified 07/08/25 11:05 dextromethorphan (From Allergy Mild Verified 07/08/25 11:05 Dimetapp DM Cold-Cough (PE)) meloxicam (MELOXICAM) Allergy Mild Verified 07/08/25 11:05 phenylephrine (From Dimetapp Allergy Mild Verified 07/08/25 11:05 DM Cold-Cough (PE)) pseudoephedrine Allergy Mild Verified 07/08/25 11:05 erythromycin base Allergy Unknown Verified 07/08/25 11:05 (ERYTHROMYCIN BASE) levofloxacin AdvReac Severe Achilles Verified 07/08/25 11:05 Tendon rosuvastatin AdvReac Severe Joint Pain Verified 07/08/25 11:05 fluticasone (From Advair AdvReac Intermediate leg Verified 07/08/25 11:05 Diskus) swelling guaifenesin (From Robitussin) AdvReac Intermediate Confusion Verified 07/08/25 11:05 salmeterol (From Advair AdvReac Intermediate leg Verified 07/08/25 11:05 Diskus) swelling antihistamines Allergy Unknown PLEASE Uncoded 07/08/25 11:05 CLARIFY WHICH MED MUSCLE RELAXANTS AdvReac Unknown ALL MUSCLE Uncoded 07/08/25 11:05 RELAXERS CAUSE PROJECTILE VOMITING Review of Systems Review of Systems ROS: Yes All systems reviewed with the patient and are negative except as otherwise documented Exam Vital Signs (past 8 hours): - 07/18/25 21:30 07/18/25 21:30 07/18/25 21:40 Temperature 97.8 F Pulse Rate 83 102 H Respiratory Rate 20 20 Blood Pressure 116/57 L 123/63 Pulse Oximetry 92 95 Oxygen Delivery Method Nasal Cannula Oxygen Flow Rate 2 2 Fraction of Inspired Oxygen 28 SaO2/FiO2 Ratio 339 Oxygen Delivery Method Nasal Cannula Oxygen Flow Rate 2 Narrative Exam Narrative: Physical Exam: GENERAL: The patient is not in any acute distressed. Awake and alert. HEENT: Nonicteric sclerae, PERRLA, EOMI. Oropharynx clear. Moist mucous membranes. Conjunctivae appear well perfused. HEART: Regular rate and rhythm without murmurs. No lower extremities edema. LUNGS: Mild bilateral wheezing otherwise Clear to auscultation bilaterally. No crackles or rhonchi ABDOMEN: Soft, positive bowel sounds, nontender. SKIN: No rash, no excessive bruising, petechiae, or purpura. NEUROLOGIC: AxO x 3. Cranial nerves II-XII intact without motor/sensory deficit. Objective Labs 07/18/25 14:53 07/18/25 14:53 Labs: Laboratory Results - last 24 hr 07/18/25 14:53 WBC 4.5 RBC 4.29 Hgb 12.4 Hct 35.8 L MCV 83.5 MCH 28.8 MCHC 34.5 RDW 14.4 Plt Count 200 Neut % (Auto) 45.0 L Lymph % (Auto) 36.9 [place] % (Auto) 9.7 Eos % (Auto) 7.4 H Baso % (Auto) 1.0 Neut # (Auto) 2000 Lymph # (Auto) 1700 [place] # (Auto) 400 Eos # (Auto) 300 Baso # (Auto) 0 PT 11.5 INR 1.0 Sodium 136 L Potassium 4.3 Chloride 98 Carbon Dioxide 30 BUN 14 Creatinine 0.51 L Estimated GFR > 60 BUN/Creatinine Ratio 27.5 H Glucose 111 H Lactate 0.9 Calcium 9.4 Total Bilirubin 0.4 AST 24 ALT 14 Alkaline Phosphatase 48 Troponin I < 0.012 NT-Pro-B Natriuret Pep 115 Total Protein 7.3 Albumin 4.5 Globulin 2.8 Albumin/Globulin Ratio 1.6 Assessment & Plan Assessment & Plan narrative: COPD exacerbation. Admit the patient to medical observation. No sign of infection on chest x-ray. Continue IV Solu-Medrol and DuoNebs. Patient still saturating well on room air. Hypothyroidism. Resume home Synthroid. DVT prophylaxis SCDs due to observational status. CODE STATUS full code per the patient. Disposition likely home in 1 to 2 days - As the provider of this telehealth evaluation, requested by the patient's evaluating physician, I attest that I introduced myself to the patient, provided my credentials and determined that telemedicine via a real-time, 2 way interactive audio and video platform is an appropriate and effective means of providing this service. - I reviewed the patient's chart and had a discussion with the member of the patient's treatment team. - The patient and I mutually agreed with continuation of this evaluation via telemedicine. The patient consented for the telemedicine evaluation. - This virtual encounter was taken place from [place] by Dr. Aftab Nair. The patient was evaluated at [facility]. The encounter was approximately 35 minutes. The nurse was present during the entire time of the encounter and was able to assists with exam/stethoscope. Time-Based Coding :: [TOTAL MINUTES] spent with patient and on the chart (including review of chart, obtaining history, exam, reviewing outside data, placing orders, documenting exam and treatment plan, and counseling patient) on [DATE]. Quality VTE Deep Vein Thrombosis/Pulmonary Embolism Present on Admission: No
[2025-07-19] MEDS: methylPREDNISolone succ 125 MG/2 ML VIAL 60 MG IV ×3 (05:40→18:14)
[2025-07-19] MEDS: LEVOTHYROXINE 75 MCG TABLET PO (05:41)
[2025-07-19] MEDS: ALBUTEROL/IPRATROPIUM 3 ML AMPUL INH ×5 (06:06→23:09)
[2025-07-19 06:09] VITALS: PULSE 94; RESP 16; O2SAT 95
[2025-07-19 06:58] LABS: Add Manual Diff / Slide Review NO; Hematocrit 34.4 % (36-46); Hemoglobin 11.9 g/dL (12.0-16.0); Lymphocytes Absolute Auto 1000 /uL (1100-4500); Mean Corpuscular HGB Conc 34.6 % (30-36); Mean Corpuscular Hemoglobin 29.0 PG (26-34); Mean Corpuscular Volume 83.8 fL (80-100); Platelet Count 178 X10^3/uL (150-400)
[2025-07-19 07:14] LABS: Blood Urea Nitrogen 19 mg/dL (7-17); Calcium 9.3 mg/dL (8.4-10.2); Carbon Dioxide 28 mmol/L (22-32); Chloride 101 mmol/L (98-107); Estimated Glomerular Filt Rate > 60 mL/min (>60); Glucose 143 mg/dL (70-99); HEMOLYSIS < 15 (0-50); Potassium 4.4 mmol/L (3.4-5.1); Sodium 136 mmol/L (137-145)
--- NOTE | 2025-07-19 07:54 | P.PN_ITS ---
Subjective Subjective Interval history: Summary (night doctor): 80-year-old female with past medical history of COPD only on 2 L of oxygen per nasal cannula at night, vitamin D deficiency, osteoporosis and hypothyroidism presents with shortness and wheezing. Per the patient report, over the last few days the patient has increasing shortness of breath and wheezing. Patient does have a mild cough with some white-yellow sputum but denies any recent fever, chills, nausea, vomiting, diarrhea, chest pain or syncope. In the emergency room, the patient remains hemodynamically stable. The patient was still saturating well on room air but had significant respiratory distress and wheezing on exam prior ER physician. Labs were relatively benign without signs of sepsis. Chest x-ray shows no acute finding. Her ER physician request admission due to ongoing shortness of breath despite having IV Solu-Medrol and DuoNebs. S: She was still short of breath, but improved from last night. She denies recent URI symptoms. She did not have a respiratory swab in the ED. This is performed today in his negative. No chest pain. O: NAD, alert and oriented. Fluent speech. Lungs are with diminished breath sounds and some expiratory wheezing, normal rate and effort. Heart is regular, no murmur gallop or rub. Abdomen is soft, non distended. Extremities are free of edema. IMAGING: CXR: No acute cardiopulmonary pathology. A/P: 1. COPD exacerbation. Improving. 2. Hypothyroidism. PLAN: -continue bronchodilators, steroids, and empiric antibiotics. -continue home soon. MAYDA: 07/20. DVT prophylaxis SCD. CODE STATUS full code per the patient. Disposition likely home in 1 to 2 days Exam Vital Signs (past 8 hours): - 07/19/25 06:09 Pulse Rate 94 H Respiratory Rate 16 Pulse Oximetry 95 Oxygen Delivery Method Nasal Cannula Oxygen Flow Rate 2 Fraction of Inspired Oxygen 28 SaO2/FiO2 Ratio 339 Oxygen Delivery Method Nasal Cannula Oxygen Flow Rate 2 Objective Labs 07/19/25 06:30 07/19/25 06:30 Labs: Laboratory Results - last 24 hr 07/18/25 07/19/25 14:53 06:30 WBC 4.5 4.0 L RBC 4.29 4.11 Hgb 12.4 11.9 L Hct 35.8 L 34.4 L MCV 83.5 83.8 MCH 28.8 29.0 MCHC 34.5 34.6 RDW 14.4 14.6 Plt Count 200 178 Neut % (Auto) 45.0 L 71.8 D Lymph % (Auto) 36.9 24.7 L [place] % (Auto) 9.7 3.3 Eos % (Auto) 7.4 H 0.1 L Baso % (Auto) 1.0 0.1 Neut # (Auto) 2000 2900 Lymph # (Auto) 1700 1000 L [place] # (Auto) 400 100 Eos # (Auto) 300 0 Baso # (Auto) 0 0 PT 11.5 INR 1.0 Sodium 136 L 136 L Potassium 4.3 4.4 Chloride 98 101 Carbon Dioxide 30 28 BUN 14 19 H Creatinine 0.51 L 0.41 L Estimated GFR > 60 > 60 BUN/Creatinine Ratio 27.5 H 46.3 H Glucose 111 H 143 H Lactate 0.9 Calcium 9.4 9.3 Total Bilirubin 0.4 AST 24 ALT 14 Alkaline Phosphatase 48 Troponin I < 0.012 NT-Pro-B Natriuret Pep 115 Total Protein 7.3 Albumin 4.5 Globulin 2.8 Albumin/Globulin Ratio 1.6 PFSH Medical History Asthma Cellulitis of right arm (12/28/15) COPD (chronic obstructive pulmonary disease) Decubitus ulcer of left buttock Hypothyroidism Pneumonia Slow transit constipation Surgical History History of section (~1964) History of section (~1974) History of tonsillectomy Family History Father Cancer Alzheimer's disease Mother Cancer History of cholecystectomy Cervical cancer BCC (basal cell carcinoma of skin) Rupture of gallbladder Sister Diabetes mellitus Son No problems noted. Daughter No problems noted. Brother Alcoholism Sister Diabetes mellitus Diverticulitis Social History details: Single, living alone, two grown children; retired [employer] household members: none Smoking Status: Former smoker Tobacco: How many years used: 40 Assessment & Plan Assessment and plan (1) COPD exacerbation: Status: Acute Time-Based Coding :: [TOTAL MINUTES] spent with patient and on the chart (including review of chart, obtaining history, exam, reviewing outside data, placing orders, documenting exam and treatment plan, and counseling patient) on [DATE]. Quality VTE Deep Vein Thrombosis/Pulmonary Embolism Present on Admission: No
[2025-07-19 08:56] VITALS: BP 103/65; PULSE 96; RESP 18; TEMP 36.6; O2SAT 92
--- NOTE | 2025-07-19 11:01 | CM.DANOTE ---
DCP Assessment Note: Pt is a 80yo female, resident of [place], is admitted for COPD exacerbation. Pt lives in an apartment alone. Pt's Primary Care Provider is Dr. En Martin and insurance is [facility] and [facility]. Reviewed chart and discussed with multidisciplinary team pt's medical status and initial discharge needs. Per RN, pt saturation levels are improving but still requiring supplemental O2. DCP met w/patient at bedside; introduced self and role. Patient was found in bed, alert and oriented, cooperative with assessment. Pt confirmed living situation and good support in caregivers who come to assist twice a week for approximately 6 hours (Tuesday/). Pt expressed preference in discharge home when back at baseline O2; she only utilizes 1L O2 at night. Pt has a hx of [facility]. Pt states she goes to Pulmonary Rehab at but has been missing appts due to shortness of breath. 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 Per vendor calendar, BEAUTY SCHOOL INSTRUCTOR sent referral to [facility] via secure email. Patient has a PO Box in chart, updated with actual address: [address] [place] [id number]. Plan: Anticipating discharge on 07/20 or when back at baseline/weaned off O2 during day. Patient requests to discharge home via taxi, will pay for fare. CM team will follow closely for coordination of discharge plans. KIMBERLY Beck Discharge Planning/Care Management CM Discharge Assessment Start: 07/18/25 22:09 Freq: Status: Active Protocol: Document 07/19/25 10:51 MW (Rec: 07/19/25 10:54 MW Desktop) Discharge Planning Assessment Assigned Discharge STEPHEN Ag [employer] Emergency Services Dispatcher Provider Dr. En Martin Insurance Medicaid,[facility] DPOA/Assigned Estefany Mason, Daughter Designee Name Contact Information [phone] Advance Directives? Yes Advance Directives No on File History Provided By Patient Prior Living Apartment/Condo Arrangements Comment [facility] Household Members none Type of Public Transportation transporation used prior to admit Independent with ADL Yes 's Is patient alert and Yes oriented? Needs Assistance Grooming,Meal Prep,Home Chores / Shopping With Caregiver for No Another DME Already Rented / FWW / Walker,Oxygen Owned Comment Baseline O2: 1L at night Discharge Plan Home Transportation Taxi, patient will pay Arrangement Review Status In Process Please Provide Date 07/19/25 Initial DC Assessment Was Performed Next Review Type Continued Stay Review
[2025-07-19 11:27] VITALS: PULSE 98; RESP 22; O2SAT 92
--- NOTE | 2025-07-19 11:41 | DIET.CONS ---
Dietary Consultation Note Admission Date: 07/18/2025 20:08 Assessment: 80 y F admitted for COPD exacerbation. Dietitian consulted for unexpected weight loss. Met with pt in room. Reports weight has returned to her UBW before she started steroids. Relates weight loss to stopping steroids. Eats 3x/day describing meals like oatmeals/nuts/fruit and frozen meals or meal delivery service for other meals and ice cream or fruit for dessert. EMR shows non-severe weight loss over last 7 months. BMI appropriate for age. Ht: 160.02 cm Wt: 61.235 kg BMI: 23.9 UBW: 66.48 kg on 12/17/24 (-8% loss in 7 months, non-severe), 63.106 kg on 02/14/25 (-3% in 5 months, non-severe) Last BM: 07/18/25 (07/18/25 21:55) MNA: 6 Dmitriy Score: 16 Diet: 07/18/25 Breakfast Heart Healthy Diet Diet Modifications: Labs: RBC 4.11 X10^6/uL (4.0-5.2) 07/19/25 06:30 Hgb 11.9 g/dL (12.0-16.0) L 07/19/25 06:30 Hct 34.4 % (36-46) L 07/19/25 06:30 Creatinine 0.41 mg/dL (0.52-1.04) L 07/19/25 06:30 Lactate 0.9 mmol/L (0.7-2.1) 07/18/25 14:53 NT-Pro-B Natriuret Pep 115 pg/mL (<450) 07/18/25 14:53 Nutrition Diagnosis: none at this time Monitoring/Evaluations: Encouraged good po intakes, f/u prn Electronically Signed by: Latasha Marquez 07/19/25 11:41 Clinical Dietitian [address] [id number]
[2025-07-19 12:20] LABS: Coronavirus NL 63 Not Detected (Not Detect); SARS- CoV-2 Not Detected (Not Detecte)
[2025-07-19 15:45] VITALS: PULSE 102; RESP 24; O2SAT 91
[2025-07-19 19:33] VITALS: BP 115/64; PULSE 103; RESP 18; TEMP 37.1; O2SAT 91
[2025-07-20] VITALS (9 sets, daily range): BP systolic 110–125; BP diastolic 61–68; PULSE 75–95; RESP 16–23; TEMP 36.5–37; O2SAT 90–97
[2025-07-20] MEDS: ALBUTEROL/IPRATROPIUM 3 ML AMPUL INH ×4 (04:08→23:44)
[2025-07-20] MEDS: methylPREDNISolone succ 125 MG/2 ML VIAL 60 MG IV ×4 (06:00→18:11)
[2025-07-20] MEDS: LEVOTHYROXINE 75 MCG TABLET PO (06:00)
[2025-07-20] MEDS: SODIUM CHLORIDE 0.9% FLUSH 10 ML IV ×2 (09:22→21:09)
--- NOTE | 2025-07-20 11:26 | CM.DPNOTE ---
DCP note MARKETING SALES SUPERVISOR reviewed EMR per provider in morning rounds, pt remains on O2 throughout the day, SOB when talking, destats to 80% when up and moving. anticipate here one more day. P: dc home when medically stable with CG support, will pay for taxi fare home. [facility] to follow. CM team will continue to follow as needed for DCP coordination STEPHEN Contreras
--- NOTE | 2025-07-20 18:30 | P.PN_ITS ---
Subjective Subjective Interval history: 80-year-old female with COPD on chronic nocturnal oxygen at 2 liters/minute, vitamin-D deficiency, osteoporosis, and hypothyroidism who was admitted with an acute COPD exacerbation. Patient continues to require 2 liters/minute of oxygen continuously. She states she continues to desaturate into the 80s when she is up and moving to the bathroom. She continues to feel breathless. She states she believe she should have come in sooner but notes that she gradually worsened over a couple of weeks beforehand and thought she would be able to get better on her own. Exam Vital Signs (past 8 hours): - 07/20/25 12:00 07/20/25 15:41 Temperature 97.9 F Pulse Rate 90 95 H Respiratory Rate 17 18 Blood Pressure 110/61 Pulse Oximetry 92 92 Oxygen Delivery Method Nasal Cannula Oxygen Flow Rate 2 2 Fraction of Inspired Oxygen 28 SaO2/FiO2 Ratio 339 Oxygen Delivery Method Nasal Cannula Oxygen Flow Rate 2 Narrative Exam Narrative: GEN: Alert and oriented x 3, NAD HEENT:NC, Face symmetric CHEST: Respiratory excursions symmetric, diminished but CTAB CV: RRR, no M/R/G ABD: Soft, NT/ND, BT present in all 4 quadrants, no organomegaly or masses EXTR: warm, well perfused, no C/C/E SKIN: warm and dry, no rash NEURO: Alert and oriented x 3, nonfocal Objective Labs 07/19/25 06:30 07/19/25 06:30 [facility] Medical History Asthma Cellulitis of right arm (12/28/15) COPD (chronic obstructive pulmonary disease) Decubitus ulcer of left buttock Hypothyroidism Pneumonia Slow transit constipation Surgical History History of section (~1964) History of section (~1974) History of tonsillectomy Family History Father Cancer Alzheimer's disease Mother Cancer History of cholecystectomy Cervical cancer BCC (basal cell carcinoma of skin) Rupture of gallbladder Sister Diabetes mellitus Son No problems noted. Daughter No problems noted. 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 COPD exacerbation Slow improvement but persistent hypoxia. She is presently on Solu-Medrol 60 mg IV q.6 hours. Will decrease to 40 mg IV q.8 hours. Continue nebulizers and supplemental oxygen 2. Acute on chronic hypoxic respiratory failure As noted, she continues to require continuous O2. At baseline she requires only nocturnal oxygen. We will continue to wean as able. 3. Hypothyroidism Continue usual thyroid replacement 4. Steroid induced hyperglycemia Mild. Blood sugar on her serum labs this morning was 143. Unless it increases above 200, we will not initiate fingersticks and sliding scale. 5. Leukopenia Likely secondary to her acute COPD exacerbation Code status Full Prophylaxis Low Brett score Disposition Likely inpatient another 48 hours Time-Based Coding :: [TOTAL MINUTES] spent with patient and on the chart (including review of chart, obtaining history, exam, reviewing outside data, placing orders, documenting exam and treatment plan, and counseling patient) on [DATE]. Quality VTE Deep Vein Thrombosis/Pulmonary Embolism Present on Admission: No
[2025-07-20] MEDS: methylPREDNISolone succ 125 MG/2 ML VIAL 40 MG IV (23:53)
[2025-07-21] VITALS (7 sets, daily range): BP systolic 108–119; BP diastolic 60–66; PULSE 77–103; RESP 15–20; TEMP 36.1–37; O2SAT 90–97
[2025-07-21 05:20] LABS: Add Manual Diff / Slide Review NO; Hematocrit 31.4 % (36-46); Hemoglobin 11.1 g/dL (12.0-16.0); Lymphocytes Absolute Auto 600 /uL (1100-4500); Mean Corpuscular HGB Conc 35.3 % (30-36); Mean Corpuscular Hemoglobin 29.8 PG (26-34); Mean Corpuscular Volume 84.6 fL (80-100); Platelet Count 183 X10^3/uL (150-400)
[2025-07-21] MEDS: LEVOTHYROXINE 75 MCG TABLET PO (06:39)
[2025-07-21] MEDS: methylPREDNISolone succ 125 MG/2 ML VIAL 40 MG IV (06:41)
[2025-07-21] MEDS: ALBUTEROL/IPRATROPIUM 3 ML AMPUL INH ×4 (07:56→22:51)
[2025-07-21] MEDS: SODIUM CHLORIDE 0.9% FLUSH 10 ML IV ×2 (08:10→21:00)
[2025-07-21] MEDS: methylPREDNISolone succ 40 MG/ML VIAL IV ×2 (14:21→22:30)
--- NOTE | 2025-07-21 16:48 | PM.PN.1 ---
Subjective Subjective Interval history: 80-year-old female with COPD on chronic nocturnal oxygen at 2 liters/minute, vitamin-D deficiency, osteoporosis, and hypothyroidism who was admitted with an acute COPD exacerbation. Patient reports she continues to be short of breath. She states heart rate was getting up to the 120s when she was going to the bathroom. She now is using a commode instead of going to the bathroom. She continues to desaturate. She states that though she seen was 81% on 2 L. Exam Vital Signs (past 8 hours): - 07/21/25 11:20 Pulse Rate 79 Respiratory Rate 16 Pulse Oximetry 97 Oxygen Delivery Method Nasal Cannula Oxygen Flow Rate 2 Fraction of Inspired Oxygen 28 SaO2/FiO2 Ratio 339 Oxygen Delivery Method Nasal Cannula Oxygen Flow Rate 2 Narrative Exam Narrative: GEN: Very pleasant elderly female, Alert and oriented x 3, NAD HEENT:NC, Face symmetric CHEST: Respiratory excursions symmetric, diminished and coarse but CTAB CV: Mildly tachy with RR, no M/R/G ABD: Soft, NT/ND, BT present in all 4 quadrants, no organomegaly or masses EXTR: warm, well perfused, no C/C/E SKIN: warm and dry, no rash NEURO: Alert and oriented x 3, nonfocal Objective Labs 07/21/25 05:01 07/19/25 06:30 Labs: Laboratory Results - last 24 hr 07/21/25 05:01 WBC 5.1 RBC 3.71 L Hgb 11.1 L Hct 31.4 L MCV 84.6 MCH 29.8 MCHC 35.3 RDW 14.6 Plt Count 183 Neut % (Auto) 85.5 H Lymph % (Auto) 11.0 L [place] % (Auto) 3.4 Eos % (Auto) 0.0 L Baso % (Auto) 0.1 Neut # (Auto) 4300 Lymph # (Auto) 600 L [place] # (Auto) 200 Eos # (Auto) 0 Baso # (Auto) 0 PFSH Medical History Asthma Cellulitis of right arm (12/28/15) COPD (chronic obstructive pulmonary disease) Decubitus ulcer of left buttock Hypothyroidism Pneumonia Slow transit constipation Surgical History History of section (~1964) History of section (~1974) History of tonsillectomy Family History Father Cancer Alzheimer's disease Mother Cancer History of cholecystectomy Cervical cancer BCC (basal cell carcinoma of skin) Rupture of gallbladder Sister Diabetes mellitus Son No problems noted. Daughter No problems noted. 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 COPD exacerbation Slow improvement but persistent hypoxia. She is presently on Solu-Medrol 60 mg IV q.6 hours. Will decrease to 40 mg IV q.8 hours. Continue nebulizers and supplemental oxygen 2. Acute on chronic hypoxic respiratory failure As noted, she continues to require continuous O2. At baseline she requires only nocturnal oxygen. We will continue to wean as able. 3. Hypothyroidism Continue usual thyroid replacement 4. Steroid induced hyperglycemia Mild. Blood sugar on her serum labs this morning was 143. Will recheck labs in the morning, but anticipate her serum glucose will be improved as we are decreasing steroid dose. 5. Leukopenia Improved today at 5.1. Likely secondary to her acute COPD exacerbation Code status Full Prophylaxis Low Brett score Disposition Likely inpatient another 48 hours Time-Based Coding :: [TOTAL MINUTES] spent with patient and on the chart (including review of chart, obtaining history, exam, reviewing outside data, placing orders, documenting exam and treatment plan, and counseling patient) on [DATE]. Quality VTE Deep Vein Thrombosis/Pulmonary Embolism Present on Admission: No
[2025-07-22] VITALS (8 sets, daily range): BP systolic 122–127; BP diastolic 56–70; PULSE 74–114; RESP 16–23; TEMP 36.8–36.9; O2SAT 90–97
[2025-07-22] MEDS: LEVOTHYROXINE 75 MCG TABLET PO (06:00)
[2025-07-22] MEDS: methylPREDNISolone succ 40 MG/ML VIAL IV ×3 (06:00→21:39)
--- NOTE | 2025-07-22 07:54 | PM.PN.1 ---
Subjective Subjective Interval history: Hospital course: Summary (night doctor): 80-year-old female with past medical history of COPD only on 2 L of oxygen per nasal cannula at night, vitamin D deficiency, osteoporosis and hypothyroidism presents with shortness and wheezing. Per the patient report, over the last few days the patient has increasing shortness of breath and wheezing. Patient does have a mild cough with some white-yellow sputum but denies any recent fever, chills, nausea, vomiting, diarrhea, chest pain or syncope. In the emergency room, the patient remains hemodynamically stable. The patient was still saturating well on room air but had significant respiratory distress and wheezing on exam prior ER physician. Labs were relatively benign without signs of sepsis. Chest x-ray shows no acute finding. Her ER physician request admission due to ongoing shortness of breath despite having IV Solu-Medrol and DuoNebs. 07/20-: Slow improvement hypoxia. Remained on corticosteroids and DuoNebs. S: She was still quite very weak. She has been getting out of bed minimally. She has a decrease of the cough but was still having a hard time pulling anything out of the lungs. O: NAD, alert and oriented. Fluent speech. Lungs are notable for diminished breath sounds, normal rate and effort. Heart is regular, no murmur gallop or rub. Abdomen is soft, non distended. Extremities are free of edema. IMAGING: CXR: No acute cardiopulmonary pathology. A/P: 1. COPD exacerbation. Improving. 2. Hypothyroidism. 3. Acute on chronic hypoxic respiratory failure. She uses nocturnal oxygen at home which may be more for sleep apnea. 4. Corticosteroid induced hyperglycemia, stable. 5. Leukopenia, improving. PLAN: -continue bronchodilators, steroids, and empiric antibiotics. -continue home soon. -out of bed as much as possible today. -wean O2, she was as nocturnal oxygen only at home. MAYDA: 07/23. Exam Vital Signs (past 8 hours): - 07/22/25 02:00 Temperature 98.2 F Pulse Rate 114 H Respiratory Rate 19 Blood Pressure 127/69 Pulse Oximetry 93 Oxygen Flow Rate 2 Fraction of Inspired Oxygen 28 SaO2/FiO2 Ratio 339 Oxygen Delivery Method Nasal Cannula Oxygen Flow Rate 2 Objective Labs 07/21/25 05:01 07/19/25 06:30 [facility] Medical History Asthma Cellulitis of right arm (12/28/15) COPD (chronic obstructive pulmonary disease) Decubitus ulcer of left buttock Hypothyroidism Pneumonia Slow transit constipation Surgical History History of section (~1964) History of section (~1974) History of tonsillectomy Family History Father Cancer Alzheimer's disease Mother Cancer History of cholecystectomy Cervical cancer BCC (basal cell carcinoma of skin) Rupture of gallbladder Sister Diabetes mellitus Son No problems noted. Daughter No problems noted. 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 Quality VTE Deep Vein Thrombosis/Pulmonary Embolism Present on Admission: No
[2025-07-22] MEDS: ALBUTEROL/IPRATROPIUM 3 ML AMPUL INH ×5 (09:31→23:14)
[2025-07-22] MEDS: SODIUM CHLORIDE 0.9% FLUSH 10 ML IV ×3 (09:45→21:39)
--- NOTE | 2025-07-22 11:36 | PT.IIE ---
Current Diagnoses Chronic obstructive pulmonary disease with (acute) exacerbation (07/22/25) Surgical History (Last Reviewed 07/08/25 @ 10:57 by En Martin MD) History of section (~1964) History of section (~1974) History of tonsillectomy Medical History (Last Reviewed 07/08/25 @ 10:57 by En Martin MD) Asthma Cellulitis of right arm (12/28/15) COPD (chronic obstructive pulmonary disease) Decubitus ulcer of left buttock Hypothyroidism Pneumonia Slow transit constipation Physical Therapy Inpatient Evaluation/Re-Eval M1 PT/OT-IP Prior Functional Status Start: 07/22/25 10:58 Freq: NEEDED Status: Active Protocol: Document 07/22/25 10:58 [facility] (Rec: 07/22/25 11:36 [facility] [id number]) Medical Review Prior Functional Status Medical History Yes Reviewed Communication WNL Mobility and Gait 4WW Activities of Daily indep w/dressing and bathing ; have 2 CG that come in Living and IADL's to help with things (Tue 6 hours, 5.5 hours)- they clean and help with transportation Social History Household Members none Living Arrangements Apartment/Condo Number of Floors ( One Floor Floors) Number of Stairs To flat Enter/Railing? Home Environment High Toilet,Tub/Shower Home Equipment Four Wheel Walker,Shower Seat without Backrest,Auto Rental Supervisor, Grab Bars In Shower M2 PT-IP Current Condition Start: 07/22/25 10:58 Freq: NEEDED Status: Active Protocol: Document 07/22/25 10:58 [facility] (Rec: 07/22/25 11:36 [facility] [id number]) Physical Therapy Current Condition Current Condition Evaluation Date 07/22/25 Treatment Diagnosis COPD exasterbation M3 PT-IP Subjective Start: 07/22/25 10:58 Freq: NEEDED Status: Active Protocol: Document 07/22/25 10:58 [facility] (Rec: 07/22/25 11:36 [facility] [id number]) Subjective Physical Therapy Visit Type Type Initial Evaluation Visit Start Time 10:58 Visit Stop Time 11:27 Number of WEATHER FORCASTER Visits 0 Physical Therapy Visit Comments Patient Comments Feels like sounds like wants to break loose. Looking at some different apartments Therapy Pain Assessment Pain Present Pain Present Denied Pain M4 PT-IP Mobility and Gait Start: 07/22/25 10:58 Freq: NEEDED Status: Active Protocol: Document 07/22/25 10:58 [facility] (Rec: 07/22/25 11:[id number]-Bed Mobility Assessment Supine to Sit Supine to Sit Independent,Head of Bed Elevated Scooting Scooting to Edge of Independent Bed PT-Transfer Assessment Sit to and From Stand Sit to and from Standby Assistance,Use of Upper Extremities Stand Equipment Transfer Assistive Gait Belt,4 Wheeled Walker Device Orthotic/Prosthetic No Devices or Brace: Comments Mobility Comments indep w/bed mobility with HOB elevated (pt lays on wedge). sat at EOB indep then stood to 4WW SBA w/cues for locking breaks. On 2 L O2 with mobility. Amb to bathroom 10ft then indep w/toileting. SBA for sitting w /cues for breaks on walker. Pt amb 10ft to counter and brushed hair, washed face and moisturized face SBA. O2 85% and pt amb 5ft to chair and left with call light in reach and asked to call if needed to get up. Gait Assessment Gait Gait Assistance Standby Assistance Required: Distance (Feet) 25 Able to Maintain Yes Weight Bearing Status During Gait Assistive Devices Assistive Device Gait Belt,4 Wheeled Walker Orthotic/Prosthetic No Devices or Brace: Factors Limiting Gait Function Factors Limiting Decreased Activity Tolerance,Decreased Strength,Poor Gait Function Balance PT-Balance Assessment Sitting Balance and Reactions Static Sitting Normal Balance Ability Dynamic Sitting Normal Balance Ability Standing Balance and Reactions Static Standing Good Balance Ability Dynamic Standing Good Balance Ability Device Used 4ww M5 PT-IP Objective Assessments Start: 07/22/25 10:58 Freq: NEEDED Status: Active Protocol: Document 07/22/25 10:58 [facility] (Rec: 07/22/25 11:36 [facility] [id number]) Gross Range of Motion Lower Extremity ROM Assessment Within Functional Limits Strength Lower Extremity Strength Hip 4-/5 grossly Coordination Assessment Gross Coordination Gross Coordination WNL Muscle Tone Muscle Tone WNL No M6 PT-IP Treatment Start: 07/22/25 10:58 Freq: NEEDED Status: Active Protocol: Document 07/22/25 10:58 [facility] (Rec: 07/22/25 11:36 [facility] [id number]) Physical Therapy Treatment Exercises Exercises Ankle Pumps Other Treatments Other Treatment December seated x4 B Performed M7 PT-IP Assessment and Plan Start: 07/22/25 10:58 Freq: NEEDED Status: Active Protocol: Document 07/22/25 10:58 [facility] (Rec: 07/22/25 11:36 [facility] [id number]) PT Summary Assessment and Plan Potential Rehabilitation Good Potential Status of Condition Evolving at Evaluation Summary Impairments Strength,Balance,Gait,Activity Tolerance Assessment Summary Pt presents w/COPD exacerbation and required 2 L of O2 with gait today and was SOB after short bout of activity with O2 dropping to 85%. She was cued for breathing throughout and locking of her breaks. PT managed O2 cord for pt today. She would benefit from further skilled PT to work on activity tolerance, and functional mobility to be safe at home Goals Bed Mobility Goal Independent Transfer Goal Independent Gait Goal Independent,Front Wheel Walker Gait Distance 100ft Days to Meet Goals 10 Frequency of Treatment Frequency Of Once a Day Treatment Treatment Plan Physical Therapy Bed Mobility Training,Transfer Training,Gait Training, Treatment Plan Therapeutic Exercise,Balance Retraining,Neuromuscular Re-ed Other gait and breathing Recommendations and Next Treatment Focus Recommendations To Nursing Amount of Assist Standby Assistance Needed Discharge Recommendations PT Discharge Home,Home Health Recommendations Transportation Needs Private Vehicle at Discharge - PT assist 1
--- NOTE | 2025-07-22 15:08 | CM.DPC ---
DCP Cont: Per MD, pt making slow progress but remains on 2LO2 continuous and at baseline only uses O2 for sleep and her COPD makes progress slow but possible discharge home tomorrow if shows signs of improvement. SW to fax [facility] discharge summary at d/c. STEPHEN Bocanegra
[2025-07-23] MEDS: LEVOTHYROXINE 75 MCG TABLET PO (06:17)
[2025-07-23] MEDS: methylPREDNISolone succ 40 MG/ML VIAL IV ×3 (06:17→22:30)
[2025-07-23] MEDS: ALBUTEROL/IPRATROPIUM 3 ML AMPUL INH ×3 (07:16→19:57)
[2025-07-23 07:19] VITALS: PULSE 73; RESP 16; O2SAT 98
--- NOTE | 2025-07-23 07:34 | PM.PN.1 ---
Subjective Subjective Interval history: S: She was slowly improving, but remains quite weak. She appears to be likely needing some rehabilitation to further strengthen. She lives independently in an apartment. She was able to ambulate to the bathroom now but it was quite unsteady and still dyspneic. Overall her breathing is slightly better today. O: NAD, alert and oriented. Fluent speech. Shaky, and frail. Lungs are with diminished breath sounds and prolonged expiratory phase, normal rate and effort. Heart is regular, no murmur gallop or rub. Abdomen is soft, non distended. Extremities are free of edema. A/P: 1. COPD exacerbation. Improving. 2. Hypothyroidism. Stable. 3. Acute on chronic hypoxic respiratory failure. She uses nocturnal oxygen at home which may be more for sleep apnea. 4. Corticosteroid induced hyperglycemia, stable. 5. Leukopenia, improving. PLAN: -continue bronchodilators, steroids, and empiric antibiotics. -Consider SNF for rehab, PT and OT assessments. -out of bed as much as possible today. -wean O2, she was as nocturnal oxygen only at home. MAYDA: 07/24. Exam Vital Signs (past 8 hours): - 07/23/25 07:19 Pulse Rate 73 Respiratory Rate 16 Pulse Oximetry 98 Oxygen Flow Rate 1.5 Fraction of Inspired Oxygen 26 Fraction of Inspired Oxygen 26 SaO2/FiO2 Ratio 361 Oxygen Delivery Method Nasal Cannula Oxygen Flow Rate 1.5 Objective Labs 07/21/25 05:01 07/19/25 06:30 [facility] Medical History Asthma Cellulitis of right arm (12/28/15) COPD (chronic obstructive pulmonary disease) Decubitus ulcer of left buttock Hypothyroidism Pneumonia Slow transit constipation Surgical History History of section (~1964) History of section (~1974) History of tonsillectomy Family History Father Cancer Alzheimer's disease Mother Cancer History of cholecystectomy Cervical cancer BCC (basal cell carcinoma of skin) Rupture of gallbladder Sister Diabetes mellitus Son No problems noted. Daughter No problems noted. 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 Quality VTE Deep Vein Thrombosis/Pulmonary Embolism Present on Admission: No
[2025-07-23] MEDS: SODIUM CHLORIDE 0.9% FLUSH 10 ML IV ×2 (09:00→21:33)
--- NOTE | 2025-07-23 12:33 | OT.IP.EVAL ---
Current Diagnoses Chronic obstructive pulmonary disease with (acute) exacerbation (07/22/25) Past Medical History (Last Reviewed 07/08/25 @ 10:57 by En Martin MD) Asthma Cellulitis of right arm (12/28/15) COPD (chronic obstructive pulmonary disease) Decubitus ulcer of left buttock Hypothyroidism Pneumonia Slow transit constipation Surgical History (Last Reviewed 07/08/25 @ 10:57 by En Martin MD) History of section (~1964) History of section (~1974) History of tonsillectomy Occupational Therapy Inpatient Evaluation/Re-Eval M1 PT/OT-IP Prior Functional Status Start: 07/22/25 10:58 Freq: NEEDED Status: Active Protocol: Document 07/23/25 12:20 [facility] (Rec: 07/23/25 12:32 [facility] Desktop) Medical Review Prior Functional Status Medical History Yes Reviewed Communication WNL Mobility and Gait 4WW Activities of Daily indep w/dressing and bathing ; have 2 CG that come in Living and IADL's to help with things (Tue 6 hours, 5.5 hours)- they clean and help with transportation Social History Household Members none Living Arrangements Apartment/Condo Number of Floors ( One Floor Floors) Number of Stairs To flat Enter/Railing? Home Environment High Toilet,Tub/Shower Home Equipment Four Wheel Walker,Shower Seat without Backrest,[place] Dental Lab Technician, Grab Bars In Shower M2 OT-IP Current Condition Start: 07/23/25 12:20 Freq: Status: Active Protocol: Document 07/23/25 12:20 [facility] (Rec: 07/23/25 12:32 [facility] Desktop) Occupational Therapy Current Condition Current Condition Evaluation Date 07/23/25 Treatment Diagnosis COPD exacerbation Diagnosis Onset Date 07/22/25 M3 OT- IP Subjective and Pain Start: 07/23/25 12:20 Freq: Status: Active Protocol: Document 07/23/25 12:20 [facility] (Rec: 07/23/25 12:32 [facility] Desktop) OT- Subjective Occupational Therapy Visit Type Type Initial Evaluation Visit Start Time 11:48 Visit Stop Time 12:03 Occupational Therapy Visit Comments Patient Comments Pt agreed to get up. Pt states now wanting to follow what her doctor is recommending that she go to skilled rehab prior to going home. Patient/Caregiver TO get better. Goals OT Pain Assessment Pain When Pain Assessed At Rest Pain Present Pain Present Denied Pain M4 OT- IP ADL's Start: 07/23/25 12:20 Freq: Status: Active Protocol: Document 07/23/25 12:20 [facility] (Rec: 07/23/25 12:32 [facility] Desktop) OT OGE-Brvg-Obhgcas General Evaluation Self-Feeding Ability Independent OT ADL-Grooming Comments OT Grooming Comments Pt states did prior. OT ADL-Oral Care Comments Oral Care Comments Pt states did prior. OT ADL-Dressing Comments OT Dressing Comments Pt able to nimesh/doff her slippers. OT ADL-Toileting Comments OT Toileting Pt states used the toilet earlier. Comments OT ADL-Bathing Comments OT Bathing Comments Pt will still benefit from sitting for showering needs and have assist at this time. M5 OT- IP IADL's Start: 07/23/25 12:20 Freq: Status: Active Protocol: Document 07/23/25 12:20 [facility] (Rec: 07/23/25 12:32 [facility] Desktop) OT-Instrumental Activities of Daily Living Home Safety Awareness Awareness of Need Good Awareness for Assistance at Home Ability to Problem Able to Problem Solve Solve Emergency Situations Medication Management Medication Pt states does her own. Management Comments Money Management Money Management Pt states taylor her own and able to get assist if needed Comments . Meal Preparation Meal Preparation Can have assist as needed. Comments Berry Grower Berry Grower Caregiver Provides Assist Driving Driving Caregiver Provides Assist M6 OT- IP Functional Cognition Start: 07/23/25 12:20 Freq: Status: Active Protocol: Document 07/23/25 12:20 [facility] (Rec: 07/23/25 12:32 [facility] Desktop) Cognitive Factors Limiting Selfcare Function Cognitive Ability Level of Alertness Alert Patient Orientation Name,Age,Birthday,Month,Date,Year,Day of Week,Place, Situation Attention Span Capable of Focused Attention,Capable of Sustained Ability Attention Ability to Follow Able to Follow One Step Commands Commands Cognitive Comments Cognitive Assessment Pt able to follow commands for mobility needs. Comments OT- Vision and Hearing OT- Hearing Assessment OT- Hearing WFL Assessment OT- Vision Assessment Visual Acuity Glasses For Reading Visual Attentiveness WFL Occular Pursuits WFL M7 OT- IP Mobility and Balance Start: 07/23/25 12:20 Freq: Status: Active Protocol: Document 07/23/25 12:20 [facility] (Rec: 07/23/25 12:32 [facility] Desktop) OT-Transfer Assessment Sit to and From Stand Sit to and from Standby Assistance Stand Comments Mobility Comments Per pt only uses oxygen at night 1L. Pt able to come to stand x5 with 4ww in front of her with SBA. Pt currently 2L in the room and at 91% and after doing sit to stands drops to 88%. OT- Balance Assessment Sitting Balance and Reactions Static Sitting Normal Balance Ability Dynamic Sitting Normal Balance Ability Standing Balance and Reactions Static Standing Good Balance Ability M8 OT- IP Objective Assessments Start: 07/23/25 12:20 Freq: Status: Active Protocol: Document 07/23/25 12:20 [facility] (Rec: 07/23/25 12:32 [facility] Desktop) OT Gross Range of Motion Upper Extremity Range of Motion ROM Impairments grossly WFL OT Strength Upper Extremity Strength Assessment Within Functional Limits M9 OT- IP Assessment and Plan Start: 07/23/25 12:20 Freq: Status: Active Protocol: Document 07/23/25 12:20 [facility] (Rec: 07/23/25 12:32 [facility] Desktop) OT Summary Assessment and Plan Potential Rehabilitation Good Potential Analytic Complexity Moderate at Evaluation Summary OT Impairments Balance,Functional Mobility,Dressing,Toileting,Bathing, Toilet Transfers,Shower Transfers,Activity Tolerance Progress Towards Slow Progress due to Medical Issues Goals Assessment Summary Pt MOD complexity and main barriers are decreased activity tolerance and O2 on 2L drops from 91% to 88% after exertion. Educated pt on use of spirometer and increases to 92% on 2L. Normally pt only uses O2 at night 1L. Pt states her doctor wants her to do to skilled rehab and now agreeing to his recommendations. Pt to go to skilled rehab when medically stable. If going home pt will benefit from increased help and home health. Goals Self-Feeding Goal Independent Grooming Goal Independent Dressing Goal Independent Toileting Goal Independent Bathing Goal Independent Toilet Transfer Goal Independent Shower Transfer Goal Independent Days to Meet Goals 15 Frequency of Treatment Other frequency 5x/week Treatment Plan OT Treatment Plan ADL Training,Functional Mobility,Patient/Family Education,Discharge Planning Other Treatment ADL activity tolerance, stand at sink with 4ww for Recommendations and grooming/oral care needs and O2 on 2L above 90%. Next Treatment Focus Discharge Recommendations OT Discharge SNF Rehab versus home with increased assist and home health. Recommendations Transportation Needs Private Vehicle,Wheelchair/Cabulance at Discharge
--- NOTE | 2025-07-23 12:35 | CM.DPC ---
DCP Cont. Reviewed EMR and team rounds for pt's medical status and updates. Met with pt to review d/c plan for HH. She now wants SNF rehab, and feels too weak to return home right now. Sent referral to [facility] to review. They will need to obtain an auth from [employer]. Pending acceptance from [facility].
[2025-07-23 15:43] VITALS: PULSE 85; RESP 16; O2SAT 94
--- NOTE | 2025-07-23 16:10 | PT.IPTN ---
Current Diagnoses Chronic obstructive pulmonary disease with (acute) exacerbation (07/22/25) Physical Therapy Treatment Note M2 PT-IP Current Condition Start: 07/22/25 10:58 Freq: NEEDED Status: Active Protocol: Document 07/22/25 10:58 [facility] (Rec: 07/22/25 11:36 [facility] [id number]) Physical Therapy Current Condition Current Condition Evaluation Date 07/22/25 Treatment Diagnosis COPD exasterbation M3 PT-IP Subjective Start: 07/22/25 10:58 Freq: NEEDED Status: Active Protocol: Document 07/23/25 16:10 [facility] (Rec: 07/23/25 17:08 AB [id number]) Subjective Physical Therapy Visit Type Type Treatment Note Visit Start Time 16:10 Visit Stop Time 16:30 Number of DOWNSTREAM BIOMANUFACTURING TECHNICIAN Visits 0 Physical Therapy Visit Comments Patient Comments agreeable to do PT M4 PT-IP Mobility and Gait Start: 07/22/25 10:58 Freq: NEEDED Status: Active Protocol: Document 07/23/25 16:10 [facility] (Rec: 07/23/25 17:08 AB [id number]) PT-Transfer Assessment Sit to and From Stand Sit to and from Standby Assistance,1 Person Assistance,Use of Upper Stand Extremities Equipment Transfer Assistive Gait Belt,4 Wheeled Walker Device Orthotic/Prosthetic No Devices or Brace: Transfers Transfer Destination Toilet Transfer Technique ambulated Transfer Ability Level of Assist Standby Assistance,1 Person Assistance,Use of Upper Extremities Comments Mobility Comments pt sitting on the chair and agreeable to do PT. O2 sat with 1.5L/min O2: 91%. pt requested to use the toilet. sit to stand SBA and ambulated to the toilet using 4WW SBA. able to do toileting needs without assistance. ambulated out using 4WW and agreed to walk in the hallway. completed ambulation ~ 225 ft using 4WW SBA with standing rest breaks in between walking. O2 sat with 1.5L/min O2: 90-92% [place]: varies: 86-125 with ambulation. pt ambulated back to her room and sat on chair. positioned pt on the chair. call light and table placed within reach. Gait Assessment Gait Gait Assistance Standby Assistance Required: Distance (Feet) 225 Able to Maintain Yes Weight Bearing Status During Gait Assistive Devices Assistive Device Gait Belt,4 Wheeled Walker Orthotic/Prosthetic No Devices or Brace: Factors Limiting Gait Function Factors Limiting Decreased Activity Tolerance,Decreased Strength, Gait Function Respiratory Distress M5 PT-IP Objective Assessments Start: 07/22/25 10:58 Freq: NEEDED Status: Active Protocol: Document 07/22/25 10:58 [facility] (Rec: 07/22/25 11:36 [facility] [id number]) Gross Range of Motion Lower Extremity ROM Assessment Within Functional Limits Strength Lower Extremity Strength Hip 4-/5 grossly Coordination Assessment Gross Coordination Gross Coordination WNL Muscle Tone Muscle Tone WNL No M6 PT-IP Treatment Start: 07/22/25 10:58 Freq: NEEDED Status: Active Protocol: Document 07/23/25 16:10 [facility] (Rec: 07/23/25 17:08 AB [id number]) Physical Therapy Treatment Education Education Provided Safety M7 PT-IP Assessment and Plan Start: 07/22/25 10:58 Freq: NEEDED Status: Active Protocol: Document 07/23/25 16:10 [facility] (Rec: 07/23/25 17:08 AB [id number]) PT Summary Assessment and Plan Potential Rehabilitation Good Potential Summary Impairments Pain,ROM,Strength,Balance,Coordination,Sensation,Bed Mobility,Transfers,Gait,Activity Tolerance Progress Towards Slow Progress due to Activity Tolerance Goals Assessment Summary pt improving with mobility and able to ambulate using 4WW SBA ~ 225 ft. pt able to maintain O2 sat 90-92% with ambulation today. pt plans to go home and has caregivers that comes in to assist her. will continue to assess progress. pt will benefit from HHPT Goals Bed Mobility Goal Independent Transfer Goal Independent,Four Wheeled Walker Gait Goal Independent,Four Wheel Walker Gait Distance 200 Days to Meet Goals 10 Frequency of Treatment Frequency Of Once a Day Treatment Treatment Plan Physical Therapy Bed Mobility Training,Transfer Training,Gait Training, Treatment Plan Therapeutic Exercise,Balance Retraining,Neuromuscular Re-ed Recommendations To Nursing Amount of Assist Standby Assistance Needed Discharge Recommendations PT Discharge Home,Home Health Recommendations Transportation Needs Private Vehicle at Discharge - PT assist 1
[2025-07-23 17:33] VITALS: BP 119/74; PULSE 81; RESP 18; TEMP 36.8; O2SAT 91
[2025-07-23 19:59] VITALS: PULSE 91; RESP 20; O2SAT 97
[2025-07-24] MEDS: LEVOTHYROXINE 75 MCG TABLET PO (05:58)
[2025-07-24] MEDS: methylPREDNISolone succ 40 MG/ML VIAL IV ×3 (05:58→22:30)
[2025-07-24] MEDS: ALBUTEROL/IPRATROPIUM 3 ML AMPUL INH ×4 (08:47→19:25)
[2025-07-24 08:48] VITALS: PULSE 78; RESP 18; O2SAT 94
[2025-07-24] MEDS: SODIUM CHLORIDE 0.9% FLUSH 10 ML IV ×2 (09:14→21:00)
--- NOTE | 2025-07-24 10:24 | PM.PN.1 ---
Subjective Subjective Date Patient Seen: 07/24/25 Interval history: S: She continues slowly improving, but remains quite weak. She appears to be needing some rehabilitation to further strengthen. She lives independently in an apartment. She was able to ambulate to the bathroom now but it was quite unsteady and still dyspneic. Overall her breathing is slightly better today. She was able to tolerate taking a shower but had to do it with her oxygen still on. She is currently 94% on 2 L nasal cannula. O: NAD, alert and oriented. Fluent speech. Shaky, and frail. Lungs are with diminished breath sounds and prolonged expiratory phase, normal rate and effort. Heart is regular, no murmur gallop or rub. Abdomen is soft, non distended. Extremities are free of edema. A/P: 1. COPD exacerbation. Improving. 2. Hypothyroidism. Stable. 3. Acute on chronic hypoxic respiratory failure. She uses nocturnal oxygen at home which may be more for sleep apnea. 4. Corticosteroid induced hyperglycemia, stable. 5. Leukopenia, improving. PLAN: -continue bronchodilators, steroids, and empiric antibiotics. -Pending [facility] for rehab, PT and OT assessments. -out of bed as much as possible today. -wean O2, she uses nocturnal oxygen only at home. MAYDA: 07/25 to [facility] Exam Vital Signs (past 8 hours): - 07/24/25 08:00 07/24/25 08:48 Pulse Rate 78 Respiratory Rate 18 Pulse Oximetry 94 Oxygen Delivery Method Nasal Cannula Nasal Cannula Oxygen Flow Rate 2 Fraction of Inspired Oxygen 28 Fraction of Inspired Oxygen 28 SaO2/FiO2 Ratio 335 Oxygen Delivery Method Nasal Cannula Oxygen Flow Rate 2 Objective Labs 07/21/25 05:01 07/19/25 06:30 [facility] Medical History Asthma Cellulitis of right arm (12/28/15) COPD (chronic obstructive pulmonary disease) Decubitus ulcer of left buttock Hypothyroidism Pneumonia Slow transit constipation Surgical History History of section (~1964) History of section (~1974) History of tonsillectomy Family History Father Cancer Alzheimer's disease Mother Cancer History of cholecystectomy Cervical cancer BCC (basal cell carcinoma of skin) Rupture of gallbladder Sister Diabetes mellitus Son No problems noted. Daughter No problems noted. 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 Quality VTE Deep Vein Thrombosis/Pulmonary Embolism Present on Admission: No
[2025-07-24 10:46] VITALS: BP 130/69; PULSE 70; RESP 15; TEMP 36.4; O2SAT 93
[2025-07-24 11:26] VITALS: PULSE 85; RESP 18
--- NOTE | 2025-07-24 12:05 | OT.IP.TRT ---
Current Diagnoses Chronic obstructive pulmonary disease with (acute) exacerbation (07/22/25) Occupational Therapy Treatment Note M2 OT-IP Current Condition Start: 07/23/25 12:20 Freq: Status: Active Protocol: Document 07/23/25 12:20 [facility] (Rec: 07/23/25 12:32 [facility] Desktop) Occupational Therapy Current Condition Current Condition Evaluation Date 07/23/25 Treatment Diagnosis COPD exacerbation Diagnosis Onset Date 07/22/25 M3 OT- IP Subjective and Pain Start: 07/23/25 12:20 Freq: Status: Active Protocol: Document 07/24/25 12:18 [facility] (Rec: 07/24/25 12:24 [facility] Desktop) OT- Subjective Occupational Therapy Visit Type Type Treatment Note Visit Start Time 11:50 Visit Stop Time 12:05 Occupational Therapy Visit Comments Patient Comments Pt just completed showering with nursing aid after set- up, increased time , and O2 on 2L. Patient/Caregiver Pt wanting to go to skilled rehab to improve overall Goals activity tolerance. OT Pain Assessment Pain When Pain Assessed At Rest Pain Present Pain Present Denied Pain M4 OT- IP ADL's Start: 07/23/25 12:20 Freq: Status: Active Protocol: Document 07/23/25 12:20 [facility] (Rec: 07/23/25 12:32 [facility] Desktop) OT NQA-[id number]-Lgumgbo General Evaluation Self-Feeding Ability Independent OT ADL-Grooming Comments OT Grooming Comments Pt states did prior. OT ADL-Oral Care Comments Oral Care Comments Pt states did prior. OT ADL-Dressing Comments OT Dressing Comments Pt able to nimesh/doff her slippers. OT ADL-Toileting Comments OT Toileting Pt states used the toilet earlier. Comments OT ADL-Bathing Comments OT Bathing Comments Pt will still benefit from sitting for showering needs and have assist at this time. M5 OT- IP IADL's Start: 07/23/25 12:20 Freq: Status: Active Protocol: Document 07/23/25 12:20 [facility] (Rec: 07/23/25 12:32 [facility] Desktop) OT-Instrumental Activities of Daily Living Home Safety Awareness Awareness of Need Good Awareness for Assistance at Home Ability to Problem Able to Problem Solve Solve Emergency Situations Medication Management Medication Pt states does her own. Management Comments Money Management Money Management Pt states taylor her own and able to get assist if needed Comments . Meal Preparation Meal Preparation Can have assist as needed. Comments Supervising Librarian Supervising Librarian Caregiver Provides Assist Driving Driving Caregiver Provides Assist M6 OT- IP Functional Cognition Start: 07/23/25 12:20 Freq: Status: Active Protocol: Document 07/24/25 12:18 [facility] (Rec: 07/24/25 12:24 [facility] Desktop) Cognitive Factors Limiting Selfcare Function Cognitive Comments Cognitive Assessment Appears at baseline. Comments M7 OT- IP Mobility and Balance Start: 07/23/25 12:20 Freq: Status: Active Protocol: Document 07/24/25 12:18 [facility] (Rec: 07/24/25 12:24 [facility] Desktop) OT-Transfer Assessment Sit to and From Stand Sit to and from Standby Assistance Stand Comments Mobility Comments Pt on 2L and at 98%. O2 on RA and 92-94%. Able to do sit to stands x5 and O2 dropped to 86%. Pt feels that she is 50% back to her baseline physically. OT- Balance Assessment Sitting Balance and Reactions Static Sitting Normal Balance Ability Dynamic Sitting Normal Balance Ability Standing Balance and Reactions Static Standing Good Balance Ability M8 OT- IP Objective Assessments Start: 07/23/25 12:20 Freq: Status: Active Protocol: Document 07/23/25 12:20 [facility] (Rec: 07/23/25 12:32 [facility] Desktop) OT Gross Range of Motion Upper Extremity Range of Motion ROM Impairments grossly WFL OT Strength Upper Extremity Strength Assessment Within Functional Limits M9 OT- IP Assessment and Plan Start: 07/23/25 12:20 Freq: Status: Active Protocol: Document 07/24/25 12:18 [facility] (Rec: 07/24/25 12:24 [facility] Desktop) OT Summary Assessment and Plan Potential Rehabilitation Good Potential Analytic Complexity Moderate at Evaluation Summary OT Impairments Balance,Functional Mobility,Dressing,Toileting,Bathing, Toilet Transfers,Shower Transfers,Activity Tolerance Progress Towards Slow Progress due to Activity Tolerance Goals Assessment Summary Pt able to tolerate a shower with O2 on and nursing aid set-up assist. Pt on RA 92-94% and after minimal activity drops to 86%. Pt to benefit from skilled rehab to work on increasing overall activity tolerance needs during ADL and mobility needs. Goals Self-Feeding Goal Independent Grooming Goal Independent Dressing Goal Independent Toileting Goal Independent Bathing Goal Independent Toilet Transfer Goal Independent Shower Transfer Goal Independent OT-Other Goals Goals based on pt on RA and O2 above 90%. Days to Meet Goals 14 Frequency of Treatment Other frequency 5x/week Treatment Plan OT Treatment Plan ADL Training,Functional Mobility,Patient/Family Education,Discharge Planning Other Treatment ADL activity tolerance, stand at sink with 4ww for Recommendations and grooming/oral care needs and O2 on 2L above 90%. Next Treatment Focus Discharge Recommendations OT Discharge SNF Rehab Recommendations Transportation Needs Private Vehicle,Wheelchair/Cabulance at Discharge
--- NOTE | 2025-07-24 13:55 | PT.IPTN ---
Current Diagnoses Chronic obstructive pulmonary disease with (acute) exacerbation (07/22/25) Physical Therapy Treatment Note M2 PT-IP Current Condition Start: 07/22/25 10:58 Freq: NEEDED Status: Active Protocol: Document 07/22/25 10:58 [facility] (Rec: 07/22/25 11:36 [facility] [id number]) Physical Therapy Current Condition Current Condition Evaluation Date 07/22/25 Treatment Diagnosis COPD exasterbation M3 PT-IP Subjective Start: 07/22/25 10:58 Freq: NEEDED Status: Active Protocol: Document 07/24/25 13:55 AB (Rec: 07/24/25 16:09 AB [id number]) Subjective Physical Therapy Visit Type Type Treatment Note Visit Start Time 13:55 Visit Stop Time 14:20 Number of [employer]KER Visits 0 Physical Therapy Visit Comments Patient Comments agreeable to do PT M4 PT-IP Mobility and Gait Start: 07/22/25 10:58 Freq: NEEDED Status: Active Protocol: Document 07/24/25 13:55 AB (Rec: 07/24/25 16:09 AB [id number]) PT-Transfer Assessment Sit to and From Stand Sit to and from Standby Assistance,1 Person Assistance,Use of Upper Stand Extremities Equipment Transfer Assistive Gait Belt,4 Wheeled Walker Device Orthotic/Prosthetic No Devices or Brace: Comments Mobility Comments pt sitting on the chair and agreeable to do PT. O2 sat with 2L/min O2: 93% completed sit to stand SBA and ambulated in the hallway using 4WW ~ 300 ft but with frequent standing rest breaks. pt with incidence of O2 sat decrease to 88% and HR at 135. standing rest break and and cued for PLB . O2 sat increase to 92% and AR decrease to ~ 112. (+ ) SOB with O2 ranging from 88-93% and HR: 106-135 during ambulation. pt ambulated back to her room and sat on chair. positioned on the chair. call light and table placed within reach. Gait Assessment Gait Gait Assistance Standby Assistance Required: Distance (Feet) 300 Able to Maintain Yes Weight Bearing Status During Gait Assistive Devices Assistive Device Gait Belt,4 Wheeled Walker Orthotic/Prosthetic No Devices or Brace: Factors Limiting Gait Function Factors Limiting Decreased Activity Tolerance,Respiratory Distress Gait Function M5 PT-IP Objective Assessments Start: 07/22/25 10:58 Freq: NEEDED Status: Active Protocol: Document 07/22/25 10:58 [facility] (Rec: 07/22/25 11:36 [facility] [id number]) Gross Range of Motion Lower Extremity ROM Assessment Within Functional Limits Strength Lower Extremity Strength Hip 4-/5 grossly Coordination Assessment Gross Coordination Gross Coordination WNL Muscle Tone Muscle Tone WNL No M6 PT-IP Treatment Start: 07/22/25 10:58 Freq: NEEDED Status: Active Protocol: Document 07/24/25 13:55 AB (Rec: 07/24/25 16:09 AB [id number]) Physical Therapy Treatment Education Education Provided Safety M7 PT-IP Assessment and Plan Start: 07/22/25 10:58 Freq: NEEDED Status: Active Protocol: Document 07/24/25 13:55 AB (Rec: 07/24/25 16:09 AB [id number]) PT Summary Assessment and Plan Potential Rehabilitation Fair Potential Summary Impairments Pain,ROM,Strength,Balance,Coordination,Sensation,Tone, Cognition,Bed Mobility,Transfers,Gait,Activity Tolerance Progress Towards Slow Progress due to Activity Tolerance Goals Assessment Summary pt improving with mobility but continues to have decrease activity tolerance requiring frequent rest breaks in between walks with (+) SOB. O2 sat 88-93% and AR: 106-135. pt lives alone and want to go to SNF. Goals Bed Mobility Goal Independent Transfer Goal Independent,Four Wheeled Walker Gait Goal Independent,Four Wheel Walker Gait Distance 200 Days to Meet Goals 10 Frequency of Treatment Frequency Of Once a Day Treatment Treatment Plan Physical Therapy Bed Mobility Training,Transfer Training,Gait Training, Treatment Plan Therapeutic Exercise,Balance Retraining,Neuromuscular Re-ed Recommendations To Nursing Amount of Assist Standby Assistance Needed Discharge Recommendations PT Discharge Home,Home Health Recommendations Transportation Needs Private Vehicle at Discharge - PT assist 1
--- NOTE | 2025-07-24 15:00 | CM.DPC ---
DCP Cont. Update: [facility] denied pt's auth for going to [facility]. Called [facility] , they have our orders and will f/u tomorrow after she discharges.
[2025-07-24 15:11] VITALS: PULSE 86; RESP 18
[2025-07-24 19:26] VITALS: O2SAT 95
[2025-07-24 19:43] VITALS: BP 135/71; PULSE 73; RESP 18; TEMP 36.4; O2SAT 95
[2025-07-25] MEDS: ALBUTEROL/IPRATROPIUM 3 ML AMPUL INH ×2 (00:16→07:31)
[2025-07-25 00:17] VITALS: PULSE 75; RESP 18; O2SAT 92
[2025-07-25] MEDS: methylPREDNISolone succ 40 MG/ML VIAL IV (06:17)
[2025-07-25] MEDS: LEVOTHYROXINE 75 MCG TABLET PO (06:18)
[2025-07-25 07:31] VITALS: PULSE 69; RESP 20; O2SAT 95
[2025-07-25 08:00] VITALS: BP 134/69; PULSE 74; RESP 18; TEMP 36.5; O2SAT 93
[2025-07-25] MEDS: SODIUM CHLORIDE 0.9% FLUSH 10 ML IV (09:08)
--- NOTE | 2025-07-25 09:16 | P.DS_ITS ---
History of Present Illness History of Present Illness Chief complaint: SOB, O2 saturation inconsistent Narrative: From H&P: 80-year-old female with past medical history of COPD only on 2 L of oxygen per nasal cannula at night, vitamin D deficiency, osteoporosis and hypothyroidism presents with shortness and wheezing. Per the patient report, over the last few days the patient has increasing shortness of breath and wheezing. Patient does have a mild cough with some white-yellow sputum but denies any recent fever, chills, nausea, vomiting, diarrhea, chest pain or syncope. In the emergency room, the patient remains hemodynamically stable. The patient was still saturating well on room air but had significant respiratory distress and wheezing on exam prior ER physician. Labs were relatively benign without signs of sepsis. Chest x-ray shows no acute finding. Her ER physician request admission due to ongoing shortness of breath despite having IV Solu-Medrol and DuoNebs. Discharge Providers Provider Date of admission: 07/22/25 07:09 Discharge Date: 07/25/25 Primary care physician: En Martin MD Consults: 07/18/25 22:56 Consult to Dietitian, Adult Routine Comment: Reason For Exam: unexpected weightloss 07/19/25 11:24 Consult to Home Health Routine Comment: Reason For Exam: RN, PT 07/22/25 10:55 Consult to Physical Therapy Evaluate & Treat Comment: Physician Instructions: Evaluate and Treat 07/23/25 09:38 Consult to Occupational Therapy Evaluate & Treat Comment: Physician Instructions: Evaluate and treat Discharge provider: Carlos Traylor MD Summary Hospital Course Discharge Diagnosis: 1. COPD exacerbation. Improving. 2. Hypothyroidism. Stable. 3. Acute on chronic hypoxic respiratory failure. She uses nocturnal oxygen at home which may be more for sleep apnea. 4. Corticosteroid induced hyperglycemia, stable. 5. Leukopenia, improving. Hospital Course: She was admitted and treated with for COPD exacerbation with bronchodilators, steroids oxygen. She would slow improvement. Ultimately she was felt to be stable for discharge home. She did well physical therapy as felt to be suitable for home health. She did not meet approval of her insurance payor for [facility]. There were no other complications during her hospitalization and her slow course of improvement. Status at Discharge Cognitive/behavioral status at discharge: oriented Functional status at discharge: uses cane/walker Overall status at discharge: patient is back to baseline Time Spent with Patient Time spent: Greater than 30 minutes Exam Vital Signs (past 8 hours): - 07/25/25 07:31 07/25/25 08:00 07/25/25 08:00 Temperature 97.7 F Pulse Rate 69 74 Respiratory Rate 20 18 Blood Pressure 134/69 Pulse Oximetry 95 93 Oxygen Delivery Method Nasal Cannula Nasal Cannula Oxygen Flow Rate 1 2 Fraction of Inspired Oxygen 25 SaO2/FiO2 Ratio 368 Oxygen Delivery Method Nasal Cannula Oxygen Flow Rate 2 Narrative Exam Narrative: NAD, alert and oriented. Fluent speech. Frail. Lungs with normal rate and effort. Heart is regular, no murmur gallop or rub. Abdomen is non distended. Extremities with no edema. Objective ECG Impression: Intervals [place] Rate: 78 P: 62 [place]: 154 QRS: 63 QRSD: 72 T: 67 QT: 376 QTc: 428 Interpretive Statements Normal sinus rhythm Low voltage QRS Imaging Chest x-ray: Radiologist's impression: No acute cardiopulmonary pathology. Labs 07/21/25 05:01 07/19/25 06:30 [facility] Medical History Slow transit constipation Decubitus ulcer of left buttock COPD (chronic obstructive pulmonary disease) Cellulitis of right arm (12/28/15) Pneumonia Asthma Hypothyroidism Surgical History History of tonsillectomy History of section (~1974) History of section (~1964) Family History Father Cancer Alzheimer's disease Mother Cancer History of cholecystectomy Cervical cancer BCC (basal cell carcinoma of skin) Rupture of gallbladder Sister Diabetes mellitus Son No problems noted. Daughter No problems noted. Brother Alcoholism Sister Diabetes mellitus Diverticulitis Social History details: Single, living alone, two grown children; retired [employer] household members: none Smoking Status: Former smoker Tobacco: How many years used: 40 Discharge Assessment & Plan Assessment and Plan Assessment: 1. COPD exacerbation, improved. Plan of Treatment: Discharge home, she was had sufficient corticosteroids at this point and we will go home without cortical steroids. Bronchodilators as needed. Home health has also been arranged. Discharge Plan Discharge Plan Patient Disposition: Home Provider Discharge Comment: Stable for discharge. Home health. Discharge orders & Medications Prescriptions: Continued Collagen 6,600 mg PO .QDAY (DME) oxygen Qty: 1 0RF Rx Instructions: 1 liter 24 hours nasal cannula continuously (DME) Disabled Parking Permit See Rx Instructions .ROUTE .MEDSUPPLY Qty: 1 0RF Rx Instructions: I find this patient to be medically disabled and qualified for Disabled Parking as indicated on the accompanying Disabled Parking Application for Individuals. levothyroxine 75 mcg tablet 75 mcg PO DAILY Qty: 90 3RF alendronate 70 mg tablet 70 mg PO QWEEK Qty: 12 3RF Bevespi Aerosphere 9-4.8 mcg HFA aerosol inhaler 2 puff inhalation BID Qty: 10.7 5RF albuterol sulfate 90 mcg/actuation HFA aerosol inhaler 2 puff inhalation QID Qty: 6.7 1RF Rx Instructions: 2 puffs every 6 hours as needed daily cholecalciferol (vitamin D3) 50 mcg (2,000 unit) capsule 50 mcg PO DAILY ascorbic acid (vitamin C) 1,000 mg tablet 1,000 mg PO DAILY azithromycin 250 mg tablet 250 mg PO DAILY Patient Comments: TAKE ONE TABLET BY MOUTH ONCE DAILY vitamin k 2 1 cap PO DAILY levalbuterol HCl 0.63 mg/3 mL solution for nebulization 0.63 mg inhalation 3XD PRN (Reason: dyspnea) fluticasone propion-salmeterol 500-50 mcg/dose blister with device 1 ea INHALATION BID Trelegy Ellipta 200-62.5-25 mcg blister with device 1 ea inhalation DAILY Follow up/Referrals: En Martin MD [Primary Care Provider, Internal Medicine] Visit Report/Discharge Packet Instructions: DI for Chronic Obstructive Pulmonary Disease, How to Prevent Falls Stand Alone Forms: Patient Portal/API, Stroke Signs & Symptoms Discharge Data Primary Care Provider: En Martin V Quality VTE Deep Vein Thrombosis/Pulmonary Embolism Present on Admission: No
--- NOTE | 2025-07-25 10:35 | OT.IPNOTE ---
Pt discharging home today with HH.
--- NOTE | 2025-07-25 12:47 | CM.DPC ---
DCP Cont. Reviewed EMR and team rounds for pt's medical status and updates. Pt has been medically cleared for home d/c. Faxed [facility] the d/c summary and orders. Called pt's dtr re: questions about pt's [facility] MCR, and explained why pt does not qualify for Medicare. Pt's cg was at bedside and able to transport her home.
--- NOTE | 2025-07-25 12:53 | PC.NURSE ---
Day shift: Paperwork signed and all questions answered. Pt has all personal belongings. No new scripts. No prednisone ilia per Dr Traylor and Pt is aware. Left unit at approx 1245 via WC. Pt has O2 concentrator at home and a portable one with her.
== END 2025-07-25 12:45 | disposition home health service (06) | DRG 190 ==
LOC: ED 18:07 → AC 20:08
PROVIDERS: Emergency Medicine; Family Medicine; Hospitalist; Admitting Provider Internal Medicine; Emergency Provider Emergency Medicine; PCP Internal Medicine; Referring Provider Emergency Medicine; Visit Provider Internal Medicine
DX: J44.1 Chronic obstructive pulmonary disease with (acute) exacerbation (principal); J96.21 Acute and chronic respiratory failure with hypoxia; E03.9 Hypothyroidism, unspecified; R73.9 Hyperglycemia, unspecified; T38.0X5A Adverse effect of glucocorticoids and synthetic analogues, initial encounter; G47.30 Sleep apnea, unspecified; M81.0 Age-related osteoporosis without current pathological fracture; Z87.891 Personal history of nicotine dependence; Z79.890 Hormone replacement therapy
CPT/HCPCS: 36415; 71045; 80048; 80053; 83605; 83880; 84484; 85025; 85610; 87633; 93005; 94640; 94762; 96374; 97116; 97162; 97166; 97530; 99285; 99291; G0378; J2919; J7613

== ENCOUNTER 2025-08-18 11:49 | Emergency (ER) | payer MEDICARE, MEDICAID, SELFPAY ==
[2025-07-18 21:55] VITALS: BMI 23.9
[2025-08-18] VITALS (24 sets, daily range): BP systolic 109–161; BP diastolic 48–80; PULSE 59–97; RESP 16–20; TEMP 36.3–36.8; O2SAT 78–100; BMI 22.8
--- NOTE | 2025-08-18 12:23 | DI.RAD.S_ITS ---
PROCEDURE: XR CHEST 1V
--- NOTE | 2025-08-18 12:29 | EKG_ITS ---
[facility]
[2025-08-18 12:41] LABS: INR 1.0 (0.9-1.3); Prothrombin Time 11.6 SECONDS (9.4-12.5)
[2025-08-18 12:42] LABS: Add Manual Diff / Slide Review NO; Hematocrit 35.1 % (36-46); Hemoglobin 12.2 g/dL (12.0-16.0); Lymphocytes Absolute Auto 1300 /uL (1100-4500); Mean Corpuscular HGB Conc 34.8 % (30-36); Mean Corpuscular Hemoglobin 29.3 PG (26-34); Mean Corpuscular Volume 84.3 fL (80-100); Platelet Count 273 X10^3/uL (150-400)
[2025-08-18] MEDS: ALBUTEROL/IPRATROPIUM 3 ML AMPUL INH (12:45)
[2025-08-18 12:48] LABS: Alanine Aminotransferase 15 IU/L (<35); Albumin 4.5 g/dL (3.5-5.0); Albumin Globulin Ratio 1.7 (1.0-2.8); Alkaline Phosphatase 50 U/L (38-126); Blood Urea Nitrogen 13 mg/dL (7-17); Calcium 9.2 mg/dL (8.4-10.2); Carbon Dioxide 33 mmol/L (22-32); Chloride 94 mmol/L (98-107); Estimated Glomerular Filt Rate > 60 mL/min (>60); Globulin 2.6 g/dL (1.7-4.1); Glucose 118 mg/dL (70-99); HEMOLYSIS < 15 (0-50); Potassium 4.2 mmol/L (3.4-5.1); Sodium 132 mmol/L (137-145); Total Protein 7.1 g/dL (6.3-8.2)
[2025-08-18 13:00] LABS: NT-proBNP (BNP-Adult 18+) 121 pg/mL (<450); Troponin I < 0.012 ng/mL (0.01-0.034)
[2025-08-18 13:07] LABS: Lactate (Lactic Acid) 0.9 mmol/L (0.7-2.1)
--- NOTE | 2025-08-18 14:09 | PC.NURSE ---
FUR CLEANER note: this air pollution analyst placed purewick on pt. after delfino care done. purewick is working. call light within reach of pt., encouraged pt. to use call light
--- NOTE | 2025-08-18 16:31 | ED_ITS ---
HPI - SOB/Dyspnea
--- NOTE | 2025-08-18 16:31 | ED.SOB ---
HPI - SOB/Dyspnea General Chief Complaint: Shortness of Breath/Dyspnea Stated Complaint: SOB Time Seen by Provider: 08/18/25 13:50 Source: patient and EMS Mode of arrival: EMS Limitations: no limitations History of Present Illness HPI Narrative: 80 years old female with history of COPD on nighttime oxygen 1 L brought in by ambulance today complaining of generalized weakness, chills, shortness of breath, cough since yesterday morning without fever, vomiting, chest pain, leg pain, leg swelling, diarrhea, constipation, urine problem, abdominal pain. Related Data Home Medications ?Medication ?Instructions ?Recorded ?Confirmed Collagen 6,600 mg PO .QDAY 08/08/18 08/01/25 ascorbic acid (vitamin C) 1,000 mg 1,000 mg PO DAILY 04/16/22 08/01/25 tablet cholecalciferol (vitamin D3) 50 50 mcg PO DAILY 04/16/22 08/01/25 mcg (2,000 unit) capsule azithromycin 250 mg tablet 250 mg PO DAILY 08/05/22 08/01/25 vitamin k 2 1 cap PO DAILY 08/10/23 08/01/25 fluticasone 500 mcg-salmeterol 50 1 ea inhalation BID 07/19/25 08/01/25 mcg/dose blistr powdr for inhalation Previous Rx's ?Medication ?Instructions ?Recorded oxygen #1 ea 10/19/19 Disabled Parking Permit #1 ea 03/26/24 levothyroxine 75 mcg tablet 75 mcg PO DAILY #90 tabs 12/24/24 albuterol sulfate 90 mcg/actuation 2 puff inhalation QID #6.7 grams 07/16/25 aerosol inhaler doxycycline hyclate 100 mg capsule 100 mg PO BID #14 caps 08/18/25 prednisone 20 mg tablet 40 mg (2 x 20 mg) PO DAILY #10 tabs 08/18/25 Allergies Allergy/AdvReac Type Severity Reaction Status Date / Time codeine Allergy Severe Anaphylaxis Verified 08/18/25 12:00 voriconazole Allergy Severe Hives Verified 08/18/25 12:00 brompheniramine (From Allergy Mild Verified 08/18/25 12:00 Dimetapp DM Cold-Cough (PE)) ciprofloxacin (From CIPRO) Allergy Mild UNKNOWN Verified 08/18/25 12:00 REACTION. clindamycin (CLINDAMYCIN) Allergy Mild Verified 08/18/25 12:00 dextromethorphan (From Allergy Mild Verified 08/18/25 12:00 Dimetapp DM Cold-Cough (PE)) meloxicam (MELOXICAM) Allergy Mild Verified 08/18/25 12:00 phenylephrine (From Dimetapp Allergy Mild Verified 08/18/25 12:00 DM Cold-Cough (PE)) pseudoephedrine Allergy Mild Verified 08/18/25 12:00 erythromycin base Allergy Unknown Verified 08/18/25 12:00 (ERYTHROMYCIN BASE) levofloxacin AdvReac Severe Achilles Verified 08/18/25 12:00 Tendon rosuvastatin AdvReac Severe Joint Pain Verified 08/18/25 12:00 fluticasone (From Advair AdvReac Intermediate leg Verified 08/18/25 12:00 Diskus) swelling guaifenesin (From Robitussin) AdvReac Intermediate Confusion Verified 08/18/25 12:00 salmeterol (From Advair AdvReac Intermediate leg Verified 08/18/25 12:00 Diskus) swelling antihistamines Allergy Unknown PLEASE Uncoded 08/01/25 10:32 CLARIFY WHICH MED MUSCLE RELAXANTS AdvReac Unknown ALL MUSCLE Uncoded 08/01/25 10:32 RELAXERS CAUSE PROJECTILE VOMITING Review of Systems Review of Systems Narrative: complaining of generalized weakness, chills, shortness of breath, cough since yesterday morning Negative for fever, vomiting, chest pain, leg pain, leg swelling, diarrhea, constipation, urine problem, abdominal pain. Patient History Medical History Asthma Cellulitis of right arm (12/28/15) COPD (chronic obstructive pulmonary disease) Decubitus ulcer of left buttock Hypothyroidism Pneumonia Slow transit constipation Surgical History History of section (~1964) History of section (~1974) History of tonsillectomy Family History Father Cancer Alzheimer's disease Mother Cancer History of cholecystectomy Cervical cancer BCC (basal cell carcinoma of skin) Rupture of gallbladder Sister Diabetes mellitus Son No problems noted. Daughter No problems noted. Brother Alcoholism Sister Diabetes mellitus Diverticulitis Social History details: Single, living alone, two grown children; retired [employer] household members: none Smoking Status: Former smoker Tobacco: How many years used: 40 Smoking Status: Former smoker tobacco type: cigarettes alcohol intake frequency: 0-2 drinks per day Exam Narrative Exam Narrative: GENERAL: Alert awake without acute distress. HEAD: Atraumatic. Normocephalic. NECK: Trachea midline. Non tender CARDIOVASCULAR: Regular rate and rhythm without murmurs, gallops, or rubs. RESPIRATORY: Decreased lung sounds bilaterally. Expiratory wheezing in both lungs. GASTROINTESTINAL: Abdomen soft, non-tender, nondistended. EXTREMITIES: No edema or joint tenderness. BACK: Nontender without deformity or crepitance. No flank tenderness. NEURO: AOx3. SKIN: No rash or erythema of visible areas Initial Vital Signs Initial Vital Signs: Vital Signs Pulse Rate 75 08/18/25 11:52 Pulse Oximetry 95 08/18/25 11:52 Course Orders Ordered: Discontinued Medications Albuterol/Ipratropium (Albuterol/Ipratropium 3 Ml Ampul) 3 ml INH NOW ONE Stop: 08/18/25 12:41 Last Admin: 08/18/25 12:45 Dose: 3 ml Documented By: SAT Albuterol/Ipratropium (Albuterol/Ipratropium 3 Ml Ampul) 6 ml INH NOW ONE Stop: 08/18/25 16:40 Last Admin: 08/18/25 16:45 Dose: 6 ml Documented By: DS Methylprednisolone (Methylprednisolone Succ 125 Mg/2 Ml Vial) 60 mg IV NOW ONE Stop: 08/18/25 16:39 Last Admin: 08/18/25 16:59 Dose: 60 mg Documented By: CB Vital Signs Vital signs: Vital Signs - 8 hr 08/18/25 11:52 08/18/25 11:53 08/18/25 11:53 Temperature Pulse Rate 75 74 Respiratory Rate Blood Pressure 139/60 Pulse Oximetry 95 96 Oxygen Delivery Method Oxygen Flow Rate 08/18/25 12:00 08/18/25 12:00 08/18/25 12:00 Temperature 98.3 F Pulse Rate 80 68 Respiratory Rate 20 Blood Pressure 109/48 L 109/48 L Pulse Oximetry 98 98 Oxygen Delivery Method Nasal Cannula Oxygen Flow Rate 2 08/18/25 12:30 08/18/25 12:31 08/18/25 12:31 Temperature Pulse Rate 68 75 Respiratory Rate Blood Pressure 116/72 Pulse Oximetry 97 99 Oxygen Delivery Method Oxygen Flow Rate 08/18/25 12:46 08/18/25 13:00 08/18/25 13:01 Temperature Pulse Rate 75 79 73 Respiratory Rate 20 Blood Pressure Pulse Oximetry 97 99 100 Oxygen Delivery Method Nasal Cannula Oxygen Flow Rate 2 08/18/25 13:01 08/18/25 13:30 08/18/25 13:31 Temperature Pulse Rate 62 Respiratory Rate Blood Pressure 142/61 H 114/53 L Pulse Oximetry 100 Oxygen Delivery Method Oxygen Flow Rate 08/18/25 13:31 08/18/25 14:02 08/18/25 14:03 Temperature Pulse Rate 62 69 Respiratory Rate Blood Pressure 153/65 H Pulse Oximetry 100 78 L Oxygen Delivery Method Oxygen Flow Rate 08/18/25 14:03 08/18/25 14:12 08/18/25 14:30 Temperature 97.4 F L Pulse Rate 70 79 61 Respiratory Rate 16 Blood Pressure 161/70 H Pulse Oximetry 97 97 100 Oxygen Delivery Method Room Air Oxygen Flow Rate 08/18/25 14:31 08/18/25 14:31 08/18/25 15:00 Temperature Pulse Rate 59 L Respiratory Rate Blood Pressure 134/60 114/55 L Pulse Oximetry 100 Oxygen Delivery Method Oxygen Flow Rate 08/18/25 15:00 08/18/25 15:30 08/18/25 15:30 Temperature Pulse Rate 62 80 Respiratory Rate Blood Pressure 121/57 L Pulse Oximetry 100 100 Oxygen Delivery Method Oxygen Flow Rate 08/18/25 16:00 08/18/25 16:00 08/18/25 16:30 Temperature Pulse Rate 60 59 L Respiratory Rate Blood Pressure 130/59 L Pulse Oximetry 100 100 Oxygen Delivery Method Oxygen Flow Rate 08/18/25 16:31 08/18/25 16:31 08/18/25 16:48 Temperature Pulse Rate 74 82 Respiratory Rate 20 Blood Pressure 124/80 Pulse Oximetry 99 100 Oxygen Delivery Method Nasal Cannula Oxygen Flow Rate 2 08/18/25 17:00 08/18/25 17:01 08/18/25 17:01 Temperature Pulse Rate 85 86 Respiratory Rate Blood Pressure 141/72 H Pulse Oximetry 100 100 Oxygen Delivery Method Oxygen Flow Rate MDM - SOB/Dyspnea Lab Data 08/18/25 11:40 08/18/25 11:40 Labs: Lab Results 08/18/25 08/18/25 08/18/25 Range/Units 11:40 12:50 16:40 WBC 3.3 L (4.5-11.0) X10^3/uL RBC 4.17 (4.0-5.2) X10^6/uL Hgb 12.2 (12.0-16.0) g/dL Hct 35.1 L (36-46) % MCV 84.3 (80-100) fL MCH 29.3 (26-34) PG MCHC 34.8 (30-36) % RDW 15.4 H (11.6-14.8) % Plt Count 273 (150-400) X10^3/uL Neut % (Auto) 39.7 L (50-75) % Lymph % (Auto) 41.2 H (25-40) % [place] % (Auto) 12.8 (3-14) % Eos % (Auto) 5.3 H (2-4) % Baso % (Auto) 1.0 (0-2) % Neut # (Auto) 1300 L (3847-3304) /uL Lymph # (Auto) 1300 (5577-9527) /uL [place] # (Auto) 400 (0-900) /uL Eos # (Auto) 200 (0-450) /uL Baso # (Auto) 0 (0-100) /uL PT 11.6 (9.4-12.5) SECONDS INR 1.0 (0.9-1.3) Sodium 132 L (137-145) mmol/L Potassium 4.2 (3.4-5.1) mmol/L Chloride 94 L (98-107) mmol/L Carbon Dioxide 33 H (22-32) mmol/L BUN 13 (7-17) mg/dL Creatinine 0.43 L (0.52-1.04) mg/dL Estimated GFR > 60 (>60) mL/min BUN/Creatinine Ratio 30.2 H (6-22) Glucose 118 H (70-99) mg/dL Lactate 0.9 (0.7-2.1) mmol/L Calcium 9.2 (8.4-10.2) mg/dL Total Bilirubin 0.5 (0.2-1.3) mg/dL AST 27 (14-36) IU/L ALT 15 (<35) IU/L Alkaline Phosphatase 50 (38-126) U/L Troponin I < 0.012 (0.01-0.034) ng/mL NT-Pro-B Natriuret Pep 121 (<450) pg/mL Total Protein 7.1 (6.3-8.2) g/dL Albumin 4.5 (3.5-5.0) g/dL Globulin 2.6 (1.7-4.1) g/dL Albumin/Globulin Ratio 1.7 (1.0-2.8) SARS-CoV-2 (PCR) Negative (Negative) Influenza A (RT-PCR) Flu a negative (NEGATIVE) Influenza B (RT-PCR) Flu b negative (NEGATIVE) RSV (PCR) Negative (Negative) Urine Dip Bedside Urine Glucose Negative Bedside Urine Bilirubin - Negative Bedside Urine Ketone +/- 5 Urine Specific [place] 10.01 Bedside Urine Occult Blood +/- Bedside Urine pH 7 Bedside Urine Protein - Negative Bedside Urine Urobilinogen - Negative Bedside Urine Nitrite - Negative Bedside Urine Leukocytes +++ 500 Esterase Imaging Data Chest x-ray: Radiologist's Impression: PROCEDURE: XR CHEST 1V INDICATIONS: Shortness of breath TECHNIQUE: One view of the chest was acquired. COMPARISON: [facility], CR, XR CHEST 1V, 07/18/2025, 14:50. [facility], CR, XR CHEST 2V, 08/06/2021, 11:41. FINDINGS: Surgical changes and devices: None. Lungs and pleura: Lungs are emphysematous without focal consolidation. No pleural effusions or pneumothorax. Mediastinum: Mediastinal contours appear normal. Heart size is normal. Central pulmonary vasculature is prominent. Bones and chest wall: No suspicious bony lesions. Overlying soft tissues appear unremarkable. IMPRESSION: No acute cardiopulmonary process. Findings suggestive of chronic pulmonary hypertension, possibly secondary to underlying emphysema. Dictated by: Arin Patel M.D. on 08/18/2025 at 11:53 Approved by: Arin Patel M.D. on 08/18/2025 at 11:55 MDM Narrative Medical decision making narrative: 80 years old female with history of COPD on nighttime oxygen 1 L brought in by ambulance today complaining of generalized weakness, chills, shortness of breath, cough since yesterday morning without fever, vomiting, chest pain, leg pain, leg swelling, diarrhea, constipation, urine problem, abdominal pain. Her CV exam, abdominal exam were benign. Lung exam showed decreased lung sounds bilaterally with expiratory wheezing. She alert oriented x4 without acute distress in the ED. Her chest x-ray showed no acute finding. Her UA showed UTI. It was urine from purewick. CBC showed WBC 3.3 otherwise normal CBC. PT INR were normal. BMP shows sodium 132 otherwise normal BNP. The lactic acid was normal. LFT, BNP were normal. Troponin was negative. Her flu/COVID/RSV were negative. She was given DuoNeb nebulization x2, Solu-Medrol and was sent home with doxycycline, prednisone. I actually to drink plenty of fluid and follow up with her primary care doctor outpatient. Discharge Plan Departure Patient Disposition: Home Clinical Impression: COPD exacerbation, Acute UTI Instructions: DI for Chronic Obstructive Pulmonary Disease, DI for Urinary Tract Infection (UTI) Activity Restrictions/Additional Instructions: Please come back to the emergency room if any worsening symptoms including but not limited to worsening shortness of breath, chest pain, vomiting, fever, abdominal pain, dehydration. Please finish your antibiotic slide prednisone. Please follow up your primary care doctor outpatient. Please drink plenty of fluid. Prescriptions: New doxycycline hyclate 100 mg capsule 100 mg PO BID Qty: 14 0RF prednisone 20 mg tablet 40 mg PO DAILY Qty: 10 0RF No Action Collagen 6,600 mg PO .QDAY (DME) oxygen Qty: 1 0RF Rx Instructions: 1 liter 24 hours nasal cannula continuously (DME) Disabled Parking Permit See Rx Instructions .ROUTE .MEDSUPPLY Qty: 1 0RF Rx Instructions: I find this patient to be medically disabled and qualified for Disabled Parking as indicated on the accompanying Disabled Parking Application for Individuals. levothyroxine 75 mcg tablet 75 mcg PO DAILY Qty: 90 3RF albuterol sulfate 90 mcg/actuation HFA aerosol inhaler 2 puff inhalation QID Qty: 6.7 1RF Rx Instructions: 2 puffs every 6 hours as needed daily cholecalciferol (vitamin D3) 50 mcg (2,000 unit) capsule 50 mcg PO DAILY ascorbic acid (vitamin C) 1,000 mg tablet 1,000 mg PO DAILY azithromycin 250 mg tablet 250 mg PO DAILY Patient Comments: TAKE ONE TABLET BY MOUTH ONCE DAILY vitamin k 2 1 cap PO DAILY fluticasone propion-salmeterol 500-50 mcg/dose blister with device 1 ea INHALATION BID Referrals: En Martin MD [Primary Care Provider, Internal Medicine] Stand Alone Forms: Patient Portal/API
[2025-08-18] MEDS: ALBUTEROL/IPRATROPIUM 3 ML AMPUL 6 ML INH (16:45)
[2025-08-18] MEDS: methylPREDNISolone succ 125 MG/2 ML VIAL 60 MG IV (16:59)
--- NOTE | 2025-08-18 17:34 | PC.NURSE ---
No changes form initial assessment
[2025-08-18 17:37] LABS: Influenza A - CEPHEID Flu A NEGATIVE (NEGATIVE); Influenza B - CEPHEID Flu B NEGATIVE (NEGATIVE)
[2025-08-18 17:39] LABS: COVID-19 CEPHEID 4-PLEX PCR Negative (Negative)
== END 2025-08-18 17:50 | disposition home or self-care (01) ==
PROVIDERS: Emergency Provider Emergency Medicine; PCP Internal Medicine
DX: J44.1 Chronic obstructive pulmonary disease with (acute) exacerbation (principal); N39.0 Urinary tract infection, site not specified
CPT/HCPCS: 71045; 80053; 81003; 83605; 83880; 84484; 85025; 85610; 87637; 93005; 94640; 96374; 99284; J2919

== ENCOUNTER 2025-09-07 09:39 | Inpatient (IN) | payer MEDICARE, MEDICAID, SELFPAY ==
[2025-07-18 21:55] VITALS: BMI 23.9
[2025-09-07] VITALS (26 sets, daily range): BP systolic 101–141; BP diastolic 51–62; PULSE 68–112; RESP 16–28; TEMP 36.5–36.9; O2SAT 88–99; BMI 22.8
--- NOTE | 2025-09-07 09:51 | EKG_ITS ---
[address] [address] [address] Test Date: 2025-09-07 Pat Name: Naye Mason Department: Room: Gender: Female Visual Training Aide: EUGENIA : 1945 Requested By: Order Number: [id number] Reading MD: Measurements Intervals [place] Rate: 64 P: 66 UT: 158 QRS: 58 QRSD: 66 T: 45 QT: 418 QTc: 431 Interpretive Statements Normal sinus rhythm Possible Left atrial enlargement Low voltage QRS Septal infarct , age undetermined
--- NOTE | 2025-09-07 09:51 | ED.SOB ---
HPI - SOB/Dyspnea General Chief Complaint: Shortness of Breath/Dyspnea Stated Complaint: Weakness/COPD Time Seen by Provider: 09/07/25 09:50 History of Present Illness HPI Narrative: 80-year-old female history of COPD on oxygen 1 L at nighttime presents with cough shortness of breath wheezing despite using her nebulizer treatment brought in via EMS for further evaluation after being recently exposed to secondhand smoke. . Patient denies chills, fever, nausea, vomiting, diarrhea, chest pain, belly pain, back pain, leg pain or leg swelling. Other than what is stated 14 point review of system is negative Related Data Home Medications ?Medication ?Instructions ?Recorded ?Confirmed Collagen 6,600 mg PO .QDAY 08/08/18 08/26/25 ascorbic acid (vitamin C) 1,000 mg 1,000 mg PO DAILY 04/16/22 08/26/25 tablet cholecalciferol (vitamin D3) 50 50 mcg PO DAILY 04/16/22 08/26/25 mcg (2,000 unit) capsule azithromycin 250 mg tablet 250 mg PO DAILY 08/05/22 08/26/25 vitamin k 2 1 cap PO DAILY 08/10/23 08/26/25 Previous Rx's ?Medication ?Instructions ?Recorded oxygen #1 ea 10/19/19 Disabled Parking Permit #1 ea 03/26/24 levothyroxine 75 mcg tablet 75 mcg PO DAILY #90 tabs 12/24/24 albuterol sulfate 90 mcg/actuation 2 puff inhalation QID #6.7 grams 07/16/25 aerosol inhaler Allergies Allergy/AdvReac Type Severity Reaction Status Date / Time codeine Allergy Severe Anaphylaxis Verified 09/07/25 10:03 voriconazole Allergy Severe Hives Verified 09/07/25 10:03 brompheniramine (From Allergy Mild Verified 09/07/25 10:03 Dimetapp DM Cold-Cough (PE)) ciprofloxacin (From CIPRO) Allergy Mild UNKNOWN Verified 09/07/25 10:03 REACTION. clindamycin (CLINDAMYCIN) Allergy Mild Verified 09/07/25 10:03 dextromethorphan (From Allergy Mild Verified 09/07/25 10:03 Dimetapp DM Cold-Cough (PE)) meloxicam (MELOXICAM) Allergy Mild Verified 09/07/25 10:03 phenylephrine (From Dimetapp Allergy Mild Verified 09/07/25 10:03 DM Cold-Cough (PE)) pseudoephedrine Allergy Mild Verified 09/07/25 10:03 erythromycin base Allergy Unknown Verified 09/07/25 10:03 (ERYTHROMYCIN BASE) levofloxacin AdvReac Severe Achilles Verified 09/07/25 10:03 Tendon rosuvastatin AdvReac Severe Joint Pain Verified 09/07/25 10:03 fluticasone (From Advair AdvReac Intermediate leg Verified 09/07/25 10:03 Diskus) swelling guaifenesin (From Robitussin) AdvReac Intermediate Confusion Verified 09/07/25 10:03 salmeterol (From Advair AdvReac Intermediate leg Verified 09/07/25 10:03 Diskus) swelling antihistamines Allergy Unknown PLEASE Uncoded 09/07/25 10:03 CLARIFY WHICH MED MUSCLE RELAXANTS AdvReac Unknown ALL MUSCLE Uncoded 09/07/25 10:03 RELAXERS CAUSE PROJECTILE VOMITING Review of Systems Review of Systems ROS Unobtainable: All systems reviewed & are unremarkable except as noted in HPI and below Patient History Medical History (Updated 09/07/25 @ 13:03 by Joey Scott DO) Chronic respiratory failure, unspecified whether with hypoxia or hypercapnia Slow transit constipation Decubitus ulcer of left buttock COPD (chronic obstructive pulmonary disease) Cellulitis of right arm (12/28/15) Pneumonia Asthma Hypothyroidism Surgical History History of tonsillectomy History of section (~1974) History of section (~1964) Family History Father Cancer Alzheimer's disease Mother Cancer History of cholecystectomy Cervical cancer BCC (basal cell carcinoma of skin) Rupture of gallbladder Sister Diabetes mellitus Son No problems noted. Daughter No problems noted. Brother Alcoholism Sister Diabetes mellitus Diverticulitis Social History details: Single, living alone, two grown children; retired [employer] household members: none Smoking Status: Former smoker Tobacco: How many years used: 40 tobacco type: cigarettes alcohol intake frequency: 0-2 drinks per day Exam Narrative Exam Narrative: GENERAL: [80] year old patient appears stated age. Well-developed patient, in mild distress. HEAD: Atraumatic. Normocephalic. EYES: Pupils equal round and reactive. Extraocular motions intact. No scleral icterus. No injection or drainage. ENT: Nose without bleeding, purulent drainage. Throat without erythema, tonsillar hypertrophy or exudate. Airway patent. NECK: Trachea midline. Non tender CARDIOVASCULAR: Regular rate and rhythm without murmurs, gallops, or rubs. RESPIRATORY: Decreased breath sounds with faint wheezes at the base. GASTROINTESTINAL: Abdomen soft, non-tender, nondistended. EXTREMITIES: No edema or joint tenderness. BACK: Nontender without deformity or crepitance. No flank tenderness. NEURO: AOx3. SKIN: No rash or erythema of visible areas Initial Vital Signs Initial Vital Signs: Vital Signs Temperature 97.7 F 09/07/25 10:03 Pulse Rate 72 09/07/25 10:03 Respiratory Rate 18 09/07/25 10:03 Blood Pressure 141/62 H 09/07/25 10:03 Pulse Oximetry 96 09/07/25 10:03 Oxygen Delivery Method Nasal Cannula 09/07/25 10:03 Oxygen Flow Rate 1 09/07/25 10:03 Course Orders Ordered: ED Orders 09/07/25 09:54 CT angio chest PE protocol Stat EKG-12 Lead Stat Venous Blood Gas STAT 09/07/25 10:00 Complete Blood Count AUTO DIFF Stat Comprehensive Metabolic Panel Stat Covid-19 + FLU A/B + RSV - PCR Stat Lipase Stat Magnesium Stat NT-proBNP (BNP-Adult 18+) Stat Troponin I Stat 09/07/25 10:29 Venous Blood Gas Routine 09/07/25 12:07 Troponin I Stat Discontinued Medications Albuterol/Ipratropium (Albuterol/Ipratropium 3 Ml Ampul) 3 ml INH NOW ONE Stop: 09/07/25 09:58 Last Admin: 09/07/25 10:12 Dose: 3 ml Documented By: LEONA Albuterol/Ipratropium (Albuterol/Ipratropium 3 Ml Ampul) 3 ml INH NOW ONE Stop: 09/07/25 09:58 Last Admin: 09/07/25 10:21 Dose: 3 ml Documented By: LEONA Albuterol/Ipratropium (Albuterol/Ipratropium 3 Ml Ampul) 3 ml INH NOW ONE Stop: 09/07/25 11:42 Last Admin: 09/07/25 11:43 Dose: 3 ml Documented By: LEONA Methylprednisolone (Methylprednisolone Succ 125 Mg/2 Ml Vial) 125 mg IV NOW ONE Stop: 09/07/25 09:56 Last Admin: 09/07/25 11:39 Dose: Not Given Documented By: PRESTON Ondansetron HCl (Ondansetron 4 Mg/2 Ml Inj) 4 mg IV NOW ONE Stop: 09/07/25 11:40 Vital Signs Vital signs: Vital Signs - 8 hr 09/07/25 10:03 09/07/25 10:12 09/07/25 10:22 Temperature 97.7 F Pulse Rate 72 80 82 Respiratory Rate 18 20 20 Blood Pressure 141/62 H Pulse Oximetry 96 94 96 Oxygen Delivery Method Nasal Cannula Nasal Cannula Nasal Cannula Oxygen Flow Rate 1 1 1 09/07/25 11:44 Temperature Pulse Rate 68 Respiratory Rate 16 Blood Pressure Pulse Oximetry 99 Oxygen Delivery Method Room Air Oxygen Flow Rate MDM - SOB/Dyspnea Lab Data 09/07/25 10:00 09/07/25 10:00 Labs: Lab Results 09/07/25 09/07/25 09/07/25 Range/Units 10:00 10:29 12:07 WBC 4.8 (4.5-11.0) X10^3/uL RBC 3.91 L (4.0-5.2) X10^6/uL Hgb 11.6 L (12.0-16.0) g/dL Hct 33.4 L (36-46) % MCV 85.5 (80-100) fL MCH 29.7 (26-34) PG MCHC 34.7 (30-36) % RDW 15.8 H (11.6-14.8) % Plt Count 144 L (150-400) X10^3/uL Neut % (Auto) 55.6 (50-75) % Lymph % (Auto) 26.4 (25-40) % [place] % (Auto) 9.1 (3-14) % Eos % (Auto) 8.1 H (2-4) % Baso % (Auto) 0.8 (0-2) % Neut # (Auto) 2700 (2945-7990) /uL Lymph # (Auto) 1300 (0927-3621) /uL [place] # (Auto) 400 (0-900) /uL Eos # (Auto) 400 (0-450) /uL Baso # (Auto) 0 (0-100) /uL VBG pH 7.35 (7.33-7.43) VBG pCO2 61.4 H (45-50) mmHg VBG pO2 26 L (35-45) mmHg VBG HCO3 34 H (24-28) mmol/L VBG Total CO2 32 H (24-29) mmol/L VBG O2 Saturation 41 L (70-75) % VBG Base Excess 6.5 H (0-4) mmol/L FiO2 % 24.0 % % Sodium 132 L (137-145) mmol/L Potassium 4.2 (3.4-5.1) mmol/L Chloride 95 L (98-107) mmol/L Carbon Dioxide 33 H (22-32) mmol/L BUN 15 (7-17) mg/dL Creatinine 0.51 L (0.52-1.04) mg/dL Estimated GFR > 60 (>60) mL/min BUN/Creatinine Ratio 29.4 H (6-22) Glucose 99 (70-99) mg/dL Calcium 8.7 (8.4-10.2) mg/dL Magnesium 1.9 (1.6-2.3) mg/dL Total Bilirubin 0.4 (0.2-1.3) mg/dL AST 23 (14-36) IU/L ALT 14 (<35) IU/L Alkaline Phosphatase 45 (38-126) U/L Troponin I < 0.012 < 0.012 (0.01-0.034) ng/mL NT-Pro-B Natriuret Pep 86 (<450) pg/mL Total Protein 6.8 (6.3-8.2) g/dL Albumin 4.3 (3.5-5.0) g/dL Globulin 2.5 (1.7-4.1) g/dL Albumin/Globulin Ratio 1.7 (1.0-2.8) Lipase 109 (23-300) U/L SARS-CoV-2 (PCR) Negative (Negative) Influenza A (RT-PCR) Flu a negative (NEGATIVE) Influenza B (RT-PCR) Flu b negative (NEGATIVE) RSV (PCR) Negative (Negative) ECG Data Interpretation: NSR HR 64 NM 158 QRS [address]-t wave change Unchanged from 08/18/25 MDM Narrative Medical decision making narrative: All lab work, vital signs, nurse triage note, medication list, previous ER visits, and all imaging studies reviewed. WBC 4.8 hemoglobin 11.6 platelet 144 VBG pH 7.35 pCO2 61.4 PO2 26 bicarb 34 0241 sodium 132 potassium 4.2 chloride 95 CO2 33 BUN 15 creatinine 0.51 LFTs normal troponin less than 0.012 BNP 86 COVID flu RSV negative. Case discussed with who has graciously accepted the patient for inpatient admission. Differential diagnosis with flu RSV pneumonia COPD Discharge Plan Departure Patient Disposition: Admitted as Observation Clinical Impression: Acute exacerbation of chronic obstructive pulmonary disease
--- NOTE | 2025-09-07 09:54 | DI.CT.S_ITS ---
PROCEDURE: CT ANGIO CHEST PE PROTOCOL INDICATIONS: chest pain sob TECHNIQUE: After the administration of intravenous contrast, 2 mm thick sections acquired from the pulmonary apices to the posterior costophrenic angles. 3-dimensional maximum intensity projection (MIP) coronal and sagittal reformats were then acquired through the thorax. For radiation dose reduction, the following was used: automated exposure control, adjustment of mA and/or kV according to patient size. COMPARISON: [facility], CT, CT CHEST WO CON, 08/23/2019, 12:53. FINDINGS: Image quality: Diagnostic. Pulmonary arteries: Pulmonary arteries are normal in size, and demonstrate no intraluminal filling defects to suggest central pulmonary embolism. Lower Neck: No enlarged lymph nodes. Thyroid: No thyroid nodules which require sonographic follow up, per consensus guidelines. Axillae: No enlarged lymph nodes. Chest Wall: Unremarkable. Bones: Unremarkable. Lungs and Pleura: No pneumothorax or pleural effusions. No acute consolidation. Severe apical predominant centrilobular and paraseptal emphysema. Stable size of 2.1 x 1.3 cm nodular scarring in the lateral basilar segment of the right lower lobe when compared to 2019. Similar chronic mild dilation of the central pulmonary trunk, which can be seen with chronic pulmonary hypertension. Fat containing bilateral Bochdalek hernias. Heart: Heart size is normal. No pericardial effusion. Triple-vessel coronary artery calcifications. Thoracic Vessels: No aortic aneurysm. Mediastinum and Debi: No enlarged lymph nodes. Esophagus: No wall thickening. No hiatal hernia. Upper Abdomen: Visualized upper abdomen solid organs and bowel loops appear normal. IMPRESSION: No pulmonary embolus. Severe apical predominant emphysema without acute consolidation to suggest pneumonia. Consider annual low-dose cancer screening if eligible (age 50-85 who have 20 pack-year smoking history and current smoker-quit within the last 15 years). Moderate to severe coronary artery calcifications. Correlate with risk factors, symptoms, and consider cardiology referral versus lifestyle modifications. Dictated by: Michel Abernathy M.D. on 09/07/2025 at 11:35 Approved by: Michel Abernathy M.D. on 09/07/2025 at 11:41
[2025-09-07 10:09] LABS: Add Manual Diff / Slide Review NO; Hematocrit 33.4 % (36-46); Hemoglobin 11.6 g/dL (12.0-16.0); Lymphocytes Absolute Auto 1300 /uL (1100-4500); Mean Corpuscular HGB Conc 34.7 % (30-36); Mean Corpuscular Hemoglobin 29.7 PG (26-34); Mean Corpuscular Volume 85.5 fL (80-100); Platelet Count 144 X10^3/uL (150-400)
[2025-09-07] MEDS: ALBUTEROL/IPRATROPIUM 3 ML AMPUL INH ×6 (10:12→23:33)
[2025-09-07 10:24] LABS: Alanine Aminotransferase 14 IU/L (<35); Albumin 4.3 g/dL (3.5-5.0); Albumin Globulin Ratio 1.7 (1.0-2.8); Alkaline Phosphatase 45 U/L (38-126); Blood Urea Nitrogen 15 mg/dL (7-17); Calcium 8.7 mg/dL (8.4-10.2); Carbon Dioxide 33 mmol/L (22-32); Chloride 95 mmol/L (98-107); Estimated Glomerular Filt Rate > 60 mL/min (>60); Globulin 2.5 g/dL (1.7-4.1); Glucose 99 mg/dL (70-99); HEMOLYSIS < 15 (0-50); Lipase 109 U/L (23-300); Magnesium 1.9 mg/dL (1.6-2.3); Potassium 4.2 mmol/L (3.4-5.1); Sodium 132 mmol/L (137-145); Total Protein 6.8 g/dL (6.3-8.2)
[2025-09-07 10:35] LABS: Base Excess VBG 6.5 mmol/L (0-4); HCO3 VBG 34 mmol/L (24-28); Oxygen Saturation VBG 41 % (70-75); PCO2 VBG 61.4 mmHg (45-50); PO2 VBG 26 mmHg (35-45); Total CO2 VBG 32 mmol/L (24-29); pH VBG 7.35 (7.33-7.43)
[2025-09-07 10:36] LABS: NT-proBNP (BNP-Adult 18+) 86 pg/mL (<450); Troponin I < 0.012 ng/mL (0.01-0.034)
[2025-09-07 11:03] LABS: Influenza A - CEPHEID Flu A NEGATIVE (NEGATIVE); Influenza B - CEPHEID Flu B NEGATIVE (NEGATIVE)
[2025-09-07 11:11] LABS: COVID-19 CEPHEID 4-PLEX PCR Negative (Negative)
[2025-09-07 12:39] LABS: Troponin I < 0.012 ng/mL (0.01-0.034)
[2025-09-07] MEDS: ONDANSETRON 4 MG/2 ML INJ IV (13:11)
[2025-09-07] MEDS: AZITHROMYCIN 250 MG TABLET PO (13:54)
[2025-09-07 16:56] LABS: MRSA (Nasal) PCR NOT DETECTED (Not Detect)
[2025-09-07] MEDS: ACETAMINOPHEN 325 MG TABLET 650 MG PO (17:46)
[2025-09-07] MEDS: methylPREDNISolone succ 40 MG/ML VIAL IV (17:47)
--- NOTE | 2025-09-07 18:36 | PM.HP.1 ---
History of Present Illness History of Present Illness Date Patient Seen: 09/07/25 Chief complaint: Weakness/COPD Narrative: Chief complaint: Increasing shortness for breath with COPD exacerbation with increasing oxygen demand History of present illness: 80-year-old female former smoker with COPD on oxygen and chronic emphysema exposed to secondhand smoke where she lives had increasing cough and difficulty breathing came to emergency room for evaluation Evaluation emergency room significant for VBG with a pCO2 of 60 and a PO2 of 26. Patient admitted for acute on chronic hypoxic and hypercapnic respiratory failure Review of systems: No fever or chills rigors No chest pain palpitations No nausea vomiting diarrhea No paresthesia or paresis Examination: Generally ill-appearing female has a dusky pallor and moderately labored respirations using accessory muscles speaking in very short phrases HEENT unremarkable Heart sounds distant Extremely small amounts of air movement no appreciable vesicular breath sounds Abdomen is benign Extremities no edema Assessment and plan: Acute on chronic respiratory failure with hypoxia hypercapnia secondary to COPD exacerbation apparently triggered by secondhand smoke Steroids and bronchodilators Supplemental oxygen as needed Chronic medical conditions: Hypothyroidism on replacement Chronic hypertension History of decubitus ulcers DVT prophylaxis: Subcutaneous heparin Code status: Full code Disposition: Acute inpatient Time based billin minutes were involved evaluation of this patient including [id number] evaluation physical examination review of previous records review of objective laboratory and imaging studies patient with treatment team and discussion with emergency room provider [facility] Medical History (Updated 09/07/25 @ 13:03 by Joey Scott DO) Chronic respiratory failure, unspecified whether with hypoxia or hypercapnia Slow transit constipation Decubitus ulcer of left buttock COPD (chronic obstructive pulmonary disease) Cellulitis of right arm (12/28/15) Pneumonia Asthma Hypothyroidism Surgical History History of tonsillectomy History of section (~1974) History of section (~1964) Family History Father Cancer Alzheimer's disease Mother Cancer History of cholecystectomy Cervical cancer BCC (basal cell carcinoma of skin) Rupture of gallbladder Sister Diabetes mellitus Son No problems noted. Daughter No problems noted. 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 household members: none Smoking Status: Former smoker Tobacco: How many years used: 40 Meds Home Medications and Allergies Home Medications ?Medication ?Instructions ?Recorded ?Confirmed ?Type Collagen 6,600 mg PO .QDAY 08/08/18 09/07/25 History oxygen #1 ea 10/19/19 09/07/25 Rx ascorbic acid (vitamin C) 1,000 mg 1,000 mg PO DAILY 04/16/22 09/07/25 History tablet cholecalciferol (vitamin D3) 50 50 mcg PO DAILY 04/16/22 09/07/25 History mcg (2,000 unit) capsule azithromycin 250 mg tablet 250 mg PO DAILY 08/05/22 09/07/25 History vitamin k 2 1 cap PO DAILY 08/10/23 09/07/25 History Disabled Parking Permit #1 ea 03/26/24 09/07/25 Rx levothyroxine 75 mcg tablet 75 mcg PO DAILY #90 tabs 12/24/24 09/07/25 Rx albuterol sulfate 90 mcg/actuation 2 puff inhalation QID #6.7 grams 07/16/25 09/07/25 Rx aerosol inhaler Allergies Allergy/AdvReac Type Severity Reaction Status Date / Time codeine Allergy Severe Anaphylaxis Verified 09/07/25 10:03 voriconazole Allergy Severe Hives Verified 09/07/25 10:03 brompheniramine (From Allergy Mild Verified 09/07/25 10:03 Dimetapp DM Cold-Cough (PE)) ciprofloxacin (From CIPRO) Allergy Mild UNKNOWN Verified 09/07/25 10:03 REACTION. clindamycin (CLINDAMYCIN) Allergy Mild Verified 09/07/25 10:03 dextromethorphan (From Allergy Mild Verified 09/07/25 10:03 Dimetapp DM Cold-Cough (PE)) meloxicam (MELOXICAM) Allergy Mild Verified 09/07/25 10:03 phenylephrine (From Dimetapp Allergy Mild Verified 09/07/25 10:03 DM Cold-Cough (PE)) pseudoephedrine Allergy Mild Verified 09/07/25 10:03 erythromycin base Allergy Unknown Verified 09/07/25 10:03 (ERYTHROMYCIN BASE) levofloxacin AdvReac Severe Achilles Verified 09/07/25 10:03 Tendon rosuvastatin AdvReac Severe Joint Pain Verified 09/07/25 10:03 fluticasone (From Advair AdvReac Intermediate leg Verified 09/07/25 10:03 Diskus) swelling guaifenesin (From Robitussin) AdvReac Intermediate Confusion Verified 09/07/25 10:03 salmeterol (From Advair AdvReac Intermediate leg Verified 09/07/25 10:03 Diskus) swelling antihistamines Allergy Unknown PLEASE Uncoded 09/07/25 10:03 CLARIFY WHICH MED MUSCLE RELAXANTS AdvReac Unknown ALL MUSCLE Uncoded 09/07/25 10:03 RELAXERS CAUSE PROJECTILE VOMITING Exam Vital Signs (past 8 hours): - 09/07/25 11:44 09/07/25 13:40 09/07/25 14:00 Temperature Pulse Rate 68 80 Respiratory Rate 16 25 H Blood Pressure 106/51 L Pulse Oximetry 99 96 Oxygen Delivery Method Room Air Nasal Cannula Oxygen Flow Rate 1 09/07/25 14:00 09/07/25 14:30 09/07/25 14:30 Temperature Pulse Rate 97 H 83 Respiratory Rate 22 28 H Blood Pressure 101/51 L Pulse Oximetry 98 97 Oxygen Delivery Method Oxygen Flow Rate 09/07/25 14:55 09/07/25 15:00 09/07/25 15:19 Temperature 98.4 F Pulse Rate 104 H 93 H Respiratory Rate 22 16 Blood Pressure 129/60 Pulse Oximetry 94 94 Oxygen Delivery Method Room Air Nasal Cannula Room Air Oxygen Flow Rate 1 Oxygen Delivery Method Room Air Oxygen Flow Rate 1 Objective Labs 09/07/25 10:00 09/07/25 10:00 Labs: Laboratory Results - last 24 hr 09/07/25 09/07/25 09/07/25 10:00 10:29 12:07 WBC 4.8 RBC 3.91 L Hgb 11.6 L Hct 33.4 L MCV 85.5 MCH 29.7 MCHC 34.7 RDW 15.8 H Plt Count 144 L Neut % (Auto) 55.6 Lymph % (Auto) 26.4 [place] % (Auto) 9.1 Eos % (Auto) 8.1 H Baso % (Auto) 0.8 Neut # (Auto) 2700 Lymph # (Auto) 1300 [place] # (Auto) 400 Eos # (Auto) 400 Baso # (Auto) 0 VBG pH 7.35 VBG pCO2 61.4 H VBG pO2 26 L VBG HCO3 34 H VBG Total CO2 32 H VBG O2 Saturation 41 L VBG Base Excess 6.5 H FiO2 % 24.0 % Sodium 132 L Potassium 4.2 Chloride 95 L Carbon Dioxide 33 H BUN 15 Creatinine 0.51 L Estimated GFR > 60 BUN/Creatinine Ratio 29.4 H Glucose 99 Calcium 8.7 Magnesium 1.9 Total Bilirubin 0.4 AST 23 ALT 14 Alkaline Phosphatase 45 Troponin I < 0.012 < 0.012 NT-Pro-B Natriuret Pep 86 Total Protein 6.8 Albumin 4.3 Globulin 2.5 Albumin/Globulin Ratio 1.7 Lipase 109 Nasal Screen MRSA (PCR) SARS-CoV-2 (PCR) Negative Influenza A (RT-PCR) Flu a negative Influenza B (RT-PCR) Flu b negative RSV (PCR) Negative 09/07/25 15:28 WBC RBC Hgb Hct MCV MCH MCHC RDW Plt Count Neut % (Auto) Lymph % (Auto) [place] % (Auto) Eos % (Auto) Baso % (Auto) Neut # (Auto) Lymph # (Auto) [place] # (Auto) Eos # (Auto) Baso # (Auto) VBG pH VBG pCO2 VBG pO2 VBG HCO3 VBG Total CO2 VBG O2 Saturation VBG Base Excess FiO2 % Sodium Potassium Chloride Carbon Dioxide BUN Creatinine Estimated GFR BUN/Creatinine Ratio Glucose Calcium Magnesium Total Bilirubin AST ALT Alkaline Phosphatase Troponin I NT-Pro-B Natriuret Pep Total Protein Albumin Globulin Albumin/Globulin Ratio Lipase Nasal Screen MRSA (PCR) Not detected SARS-CoV-2 (PCR) Influenza A (RT-PCR) Influenza B (RT-PCR) RSV (PCR) Assessment & Plan Time-Based Coding :: [TOTAL MINUTES] spent with patient and on the chart (including review of chart, obtaining history, exam, reviewing outside data, placing orders, documenting exam and treatment plan, and counseling patient) on [DATE].
[2025-09-07] MEDS: HEPARIN 5,000 UNIT/ML VIAL 5000 UNIT SUBCUT (21:17)
[2025-09-07] MEDS: SODIUM CHLORIDE 0.9% FLUSH 10 ML IV (21:18)
[2025-09-08] VITALS (60 sets, daily range): BP systolic 100–127; BP diastolic 51–76; PULSE 75–127; RESP 11–56; TEMP 36.4–37.1; O2SAT 89–99
[2025-09-08] MEDS: methylPREDNISolone succ 40 MG/ML VIAL IV ×3 (03:33→17:37)
[2025-09-08] MEDS: LEVOTHYROXINE 75 MCG TABLET PO (05:53)
[2025-09-08] MEDS: ALBUTEROL/IPRATROPIUM 3 ML AMPUL INH ×5 (07:50→23:26)
[2025-09-08] MEDS: AZITHROMYCIN 250 MG TABLET PO (08:11)
[2025-09-08] MEDS: HEPARIN 5,000 UNIT/ML VIAL 5000 UNIT SUBCUT ×2 (08:11→20:15)
[2025-09-08] MEDS: SODIUM CHLORIDE 0.9% FLUSH 10 ML IV ×2 (08:20→20:15)
--- NOTE | 2025-09-08 11:44 | P.PN_ITS ---
Subjective Subjective Date Patient Seen: 09/08/25 Interval history: Chief complaint: Increasing shortness for breath with COPD exacerbation with increasing oxygen demand History of present illness: 09/07: 80-year-old female former smoker with COPD on oxygen and chronic emphysema exposed to secondhand smoke where she lives had increasing cough and difficulty breathing came to emergency room for evaluation Evaluation emergency room significant for VBG with a pCO2 of 60 and a PO2 of 26. Patient admitted for acute on chronic hypoxic and hypercapnic respiratory failure Hospital course: 09/08: Improved dyspnea although still having to labor to inhale Review of systems: No fever or chills rigors No chest pain palpitations No nausea vomiting diarrhea No paresthesia or paresis Examination: Generally ill-appearing female has a dusky pallor and moderately labored respirations using accessory muscles speaking in very short phrases HEENT unremarkable Heart sounds distant Extremely small amounts of air movement no appreciable vesicular breath sounds but improved from yesterday Abdomen is benign Extremities no edema Assessment and plan: Acute on chronic respiratory failure with hypoxia hypercapnia secondary to COPD exacerbation apparently triggered by secondhand smoke * Continue Steroids and bronchodilators * Continue Supplemental oxygen as needed Chronic medical conditions: * Hypothyroidism on replacement * Chronic hypertension * History of decubitus ulcers DVT prophylaxis: * Subcutaneous heparin Code status: * Full code Disposition: * Acute inpatient Time based billing: * 35 minutes were involved evaluation of this patient including [id number] evaluation physical examination review of previous records review of objective laboratory and imaging studies patient with treatment team and discussion with emergency room provider Exam Vital Signs (past 8 hours): - 09/08/25 05:33 09/08/25 07:00 09/08/25 07:50 Temperature 98.7 F Pulse Rate 91 H 91 H Respiratory Rate 19 18 Blood Pressure 100/55 L Pulse Oximetry 99 95 Oxygen Delivery Method Nasal Cannula Nasal Cannula Oxygen Flow Rate 1 2 Fraction of Inspired Oxygen 28 09/08/25 09:00 09/08/25 10:28 Temperature Pulse Rate 107 H 100 H Respiratory Rate 20 18 Blood Pressure 127/62 Pulse Oximetry 95 95 Oxygen Delivery Method Nasal Cannula Oxygen Flow Rate 2 Fraction of Inspired Oxygen 28 Fraction of Inspired Oxygen 28 SaO2/FiO2 Ratio 339 Oxygen Delivery Method Nasal Cannula Oxygen Flow Rate 2 Objective Labs 09/07/25 10:00 09/07/25 10:00 Labs: Laboratory Results - last 24 hr 09/07/25 09/07/25 12:07 15:28 Troponin I < 0.012 Nasal Screen MRSA (PCR) Not detected [facility] Medical History (Updated 09/07/25 @ 13:03 by Joey Scott DO) Chronic respiratory failure, unspecified whether with hypoxia or hypercapnia Slow transit constipation Decubitus ulcer of left buttock COPD (chronic obstructive pulmonary disease) Cellulitis of right arm (12/28/15) Pneumonia Asthma Hypothyroidism Surgical History History of tonsillectomy History of section (~1974) History of section (~1964) Family History Father Cancer Alzheimer's disease Mother Cancer History of cholecystectomy Cervical cancer BCC (basal cell carcinoma of skin) Rupture of gallbladder Sister Diabetes mellitus Son No problems noted. Daughter No problems noted. Brother Alcoholism Sister Diabetes mellitus Diverticulitis Social History details: Single, living alone, two grown children; retired [employer] household members: none Smoking Status: Former smoker Tobacco: How many years used: 40 Assessment & Plan Time-Based Coding :: [TOTAL MINUTES] spent with patient and on the chart (including review of chart, obtaining history, exam, reviewing outside data, placing orders, documenting exam and treatment plan, and counseling patient) on [DATE].
--- NOTE | 2025-09-08 14:03 | CM.DANOTE ---
Pt is a 80yo female who was admitted INPT Status on 09/07/25 and is admitted for COPD exacerbation/Hypoxic Resp Failure. Pt's Primary Care Provider is Dr. En Martin and insurance is [facility] and [facility]. Reviewed chart and discussed with multidisciplinary team pt's medical status and initial discharge needs. Per RN, pt saturation levels are improving but still requiring supplemental O2. DCP met w/patient at bedside; introduced self and role. Patient was found in bed, alert and oriented, cooperative with assessment. Pt confirmed living situation and good support in caregivers who come to assist twice a week for approximately 6 hours (Tuesday/). Pt expressed preference in discharge home when back at baseline O2; she only utilizes 1L O2 at night. Pt's son and family live in [place] and visit pt regularly. Pt also utilizes her CGs for transport and now has some transportation through [facility]. Pt has a hx of [facility]. Pt states she goes to Pulmonary Rehab at [facility]. Pt is hopeful to d/c home tomorrow because her CG can provide transport home. Pt recently admitted for similar last month and discharged home with new [facility] but they recently discharged her from services as she had made good progress, will need new referral/orders. Pt confirms she feels HH needed again at d/c as her COPD exac makes her very limited initially on mobility due to SOB. New [facility] referral made. F2F completed but not sent yet. Patient has a PO Box in chart, updated with actual address: [address] [place] [address]. [address] [place] [id number]. Plan: Anticipating discharge tomorrow 09/09 or when back at baseline/weaned off O2 during day. Patient requests to discharge home via her CG and new [facility] referral made. STEPHEN Bocanegra Discharge Planning/Care Management CM Discharge Assessment Start: 09/07/25 14:24 Freq: Status: Active Protocol: Document 09/08/25 13:53 BF (Rec: 09/08/25 14:03 BF [id number]) Discharge Planning Assessment Assigned Discharge STEPHEN Nunes Level Vial Setter Provider Dr. En Martin Insurance Medicaid,Medicare,[facility] DPOA/Assigned Dtr Estefany Designee Name Contact Information [phone] Advance Directives? Yes Advance Directives No on File History Provided By Patient,Medical Record Has Patient been No admitted in last 30 days? Comment Recently here last month and discharged home with [facility] Prior Living Apartment/Condo Arrangements Household Members none Type of Relies on Others transporation used prior to admit Independent with ADL Yes: mostly but does have CGs 's Is patient alert and Yes oriented? Needs Assistance Meal Prep,Home Chores / Shopping With Caregiver for No Another Community Services Physical Therapy used prior to admission: DME Already Rented / FWW / Walker Owned Comment Baseline O2: 1L at night Patient/Family Home with Home Health Preference Barriers to No Discharge Discharge Plan Home with Home Health Community Services Physical Therapy,Home Health Nurse Transportation CG can transport if she discharges tomorrow Arrangement Referrals Initiated Home Health If patient plan is Yes home with home health: Has signed face to face form been completed? Medicare Choice List Yes Provided Medicare choice list patient reviewed on electronic tablet with SNF/HH Preference [facility] Whiteboard Updated Yes in Patient Room with name and ext. # of Stock Speculator Review Status In Process Please Provide Date 09/08/25 Initial DC Assessment Was Performed Next Review Type Continued Stay Review
--- NOTE | 2025-09-08 17:55 | PC.NURSE ---
Pt up OOB in chair all shift. Stable on 1L NC, which is patients baseline. Pt still reporting 'tightness' in lungs. Pt doing flutter vlave and inspirometer. No reports of pain.
[2025-09-09] VITALS (15 sets, daily range): BP systolic 107; BP diastolic 53; PULSE 62–119; RESP 18–45; TEMP 36.8; O2SAT 93–98
[2025-09-09] MEDS: methylPREDNISolone succ 40 MG/ML VIAL IV ×2 (01:03→09:47)
[2025-09-09] MEDS: LEVOTHYROXINE 75 MCG TABLET PO (05:44)
[2025-09-09] MEDS: ALBUTEROL/IPRATROPIUM 3 ML AMPUL INH ×2 (07:40→11:02)
--- NOTE | 2025-09-09 07:59 | P.DS_ITS ---
History of Present Illness History of Present Illness Chief complaint: Weakness/COPD Narrative: Chief complaint: Increasing shortness for breath with COPD exacerbation with increasing oxygen demand History of present illness: 80-year-old female former smoker with COPD on oxygen and chronic emphysema exposed to secondhand smoke where she lives had increasing cough and difficulty breathing came to emergency room for evaluation Evaluation emergency room significant for VBG with a pCO2 of 60 and a PO2 of 26. Patient admitted for acute on chronic hypoxic and hypercapnic respiratory failure Hospital course: 09/08-09/09: Patient improved with treatment and was ready for discharge on 09/09 discharged with prednisone taper nebulizer with medications and has on oxygen Review of systems: No fever or chills rigors No chest pain palpitations No nausea vomiting diarrhea No paresthesia or paresis Examination: Appearing back to baseline HEENT unremarkable Heart sounds distant Improved air movement Abdomen is benign Extremities no edema Assessment and plan: Acute on chronic respiratory failure with hypoxia hypercapnia secondary to COPD exacerbation apparently triggered by secondhand smoke * Steroids and bronchodilators taper at home * Supplemental oxygen as needed * Nebulizer kit Chronic medical conditions: * Hypothyroidism on replacement * Chronic hypertension * History of decubitus ulcers DVT prophylaxis: * Subcutaneous heparin Code status: * Full code Disposition: * Discharge to home Time based billing: * 35 minutes were involved evaluation of this patient including [id number] evaluation physical examination review of previous records review of objective laboratory and imaging studies patient with treatment team and discussion with emergency room provider Discharge Providers Provider Date of admission: 09/07/25 13:06 Discharge Date: 09/09/25 Primary care physician: En Martin MD Consults: 09/07/25 15:11 Consult to Dietitian, Adult Routine Comment: Reason For Exam: unknown 09/08/25 14:27 Consult to Home Health Routine Comment: COPD exacerbation, hypoxic respiratory Failure Reason For Exam: Set up RN/PT for discharge to home when stable Discharge provider: Mathew Francois MD Exam Vital Signs (past 8 hours): - 09/09/25 00:00 09/09/25 00:30 09/09/25 01:00 Temperature Pulse Rate 108 H 104 H 104 H Respiratory Rate 44 H 31 H 21 Blood Pressure Pulse Oximetry 93 93 96 Oxygen Delivery Method Oxygen Flow Rate Fraction of Inspired Oxygen 09/09/25 01:30 09/09/25 02:00 09/09/25 02:30 Temperature Pulse Rate 119 H 95 H 97 H Respiratory Rate 35 H 27 H 31 H Blood Pressure Pulse Oximetry 97 94 95 Oxygen Delivery Method Oxygen Flow Rate Fraction of Inspired Oxygen 09/09/25 03:00 09/09/25 03:30 09/09/25 03:38 Temperature Pulse Rate 86 86 99 H Respiratory Rate 35 H 31 H 37 H Blood Pressure Pulse Oximetry 95 95 93 Oxygen Delivery Method Oxygen Flow Rate Fraction of Inspired Oxygen 09/09/25 03:38 09/09/25 04:00 09/09/25 04:30 Temperature 98.3 F Pulse Rate 91 H 95 H 78 Respiratory Rate 25 H 23 35 H Blood Pressure 107/53 L Pulse Oximetry 93 94 94 Oxygen Delivery Method Oxygen Flow Rate 2 Fraction of Inspired Oxygen 09/09/25 05:00 09/09/25 07:40 Temperature Pulse Rate 78 84 Respiratory Rate 45 H 18 Blood Pressure Pulse Oximetry 94 95 Oxygen Delivery Method Nasal Cannula Oxygen Flow Rate 2 Fraction of Inspired Oxygen 28 Fraction of Inspired Oxygen 28 SaO2/FiO2 Ratio 339 Oxygen Delivery Method Nasal Cannula Oxygen Flow Rate 2 Objective Labs 09/07/25 10:00 09/07/25 10:00 [facility] Medical History (Updated 09/07/25 @ 13:03 by Joey Scott DO) Chronic respiratory failure, unspecified whether with hypoxia or hypercapnia Slow transit constipation Decubitus ulcer of left buttock COPD (chronic obstructive pulmonary disease) Cellulitis of right arm (12/28/15) Pneumonia Asthma Hypothyroidism Surgical History History of tonsillectomy History of section (~1974) History of section (~1964) Family History Father Cancer Alzheimer's disease Mother Cancer History of cholecystectomy Cervical cancer BCC (basal cell carcinoma of skin) Rupture of gallbladder Sister Diabetes mellitus Son No problems noted. Daughter No problems noted. 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 household members: none Smoking Status: Former smoker Tobacco: How many years used: 40 Discharge Plan Discharge Plan Patient Disposition: Home Discharge orders & Medications Prescriptions: New ipratropium-albuterol 0.5 mg-3 mg(2.5 mg base)/3 mL Solution For Nebulization 3 ml INH [id number] Qty: 100 0RF azithromycin [Zithromax Z-Tawanda] 250 mg Tablet 250 mg PO DAILY Qty: 5 0RF prednisone 20 mg tablet See Rx Instructions .ROUTE .COMPLEX Qty: 90 0RF Rx Instructions: Three tablets twice daily for 3 days then 2 tablets twice daily for 3 days then 1 tablet twice daily for 3 days there will be additional tablets left over for emergency (DME) nebulizer and compressor Device See Rx Instructions .Route Qty: 1 0RF Rx Instructions: As directed Continued Collagen 6,600 mg PO .QDAY (DME) oxygen Qty: 1 0RF Rx Instructions: 1 liter 24 hours nasal cannula continuously (DME) Disabled Parking Permit See Rx Instructions .ROUTE .MEDSUPPLY Qty: 1 0RF Rx Instructions: I find this patient to be medically disabled and qualified for Disabled Parking as indicated on the accompanying Disabled Parking Application for Individuals. levothyroxine 75 mcg tablet 75 mcg PO DAILY Qty: 90 3RF albuterol sulfate 90 mcg/actuation HFA aerosol inhaler 2 puff inhalation QID Qty: 6.7 1RF Rx Instructions: 2 puffs every 6 hours as needed daily cholecalciferol (vitamin D3) 50 mcg (2,000 unit) capsule 50 mcg PO DAILY ascorbic acid (vitamin C) 1,000 mg tablet 1,000 mg PO DAILY vitamin k 2 1 cap PO DAILY Discontinued azithromycin 250 mg tablet 250 mg PO DAILY Patient Comments: TAKE ONE TABLET BY MOUTH ONCE DAILY Follow up/Referrals: En Martin MD [Primary Care Provider, Internal Medicine] - 1 Week Visit Report/Discharge Packet Stand Alone Forms: Patient Portal/API, Stroke Signs & Symptoms Discharge Data Primary Care Provider: En Martin V
[2025-09-09] MEDS: HEPARIN 5,000 UNIT/ML VIAL 5000 UNIT SUBCUT (09:46)
[2025-09-09] MEDS: SODIUM CHLORIDE 0.9% FLUSH 10 ML IV (09:47)
[2025-09-09] MEDS: AZITHROMYCIN 250 MG TABLET PO (09:47)
--- NOTE | 2025-09-09 10:02 | PC.NURSE ---
Assuming care of patient at this time (dayshift SUSHILA Mac left) Patient is sitting on the side of her bed visiting with her friend. Denies needs or complaint at this time. States she has declined shower prior to leaving and needs to pace herself this morning and conserve her energy. Call light within reach.
--- NOTE | 2025-09-09 10:24 | CM.DPNOTE ---
DCP Note ORDER DISPATCHER CHIEF reviewed EMR per chart/hospitalist, cleared to dc home today with CGs and [facility]. ORDER DISPATCHER CHIEF emailed f2f/order/dc summary to Randolph KEEN. RN to give brochure to pt in room. pt has had [facility] before. P: dc home today, [facility] and CG support. CM team will continue to follow as needed STEPHEN Contreras
--- NOTE | 2025-09-09 13:34 | PC.NURSE ---
Patient without further questions or concerns at this time. Patient escorted out via WC with her friend to discharge to home. IV dc'd intact.
== END 2025-09-09 13:35 | disposition home health service (06) | DRG 189 ==
LOC: ED 13:03 → AC 13:06 → ICU 15:13
PROVIDERS: Admitting Provider Internal Medicine; Emergency Provider Family Medicine; PCP Internal Medicine; Referring Provider Family Medicine; Visit Provider Internal Medicine
DX: J96.22 Acute and chronic respiratory failure with hypercapnia (principal); J44.1 Chronic obstructive pulmonary disease with (acute) exacerbation; J96.21 Acute and chronic respiratory failure with hypoxia; E03.9 Hypothyroidism, unspecified; I10 Essential (primary) hypertension; J43.9 Emphysema, unspecified; Z87.891 Personal history of nicotine dependence; Z77.22 Contact with and (suspected) exposure to environmental tobacco smoke (acute) (chronic); Z79.890 Hormone replacement therapy; Z99.81 Dependence on supplemental oxygen; Z87.2 Personal history of diseases of the skin and subcutaneous tissue
CPT/HCPCS: 36415; 71275; 80053; 82805; 83690; 83735; 83880; 84484; 85025; 87086; 87637; 87797; 93005; 94640; 94762; 96374; 99285; J1644; J2405; J2919; Q9967